=== PATIENT | male | born 1940 | race African-American/Black ===

== ENCOUNTER 2019-05-11 11:43 | Emergency (ER) | payer OTHER, MEDICAID ==
[~2019-05-11] VITALS: Ht 182.9 cm; Wt 102.1 kg
[2019-05-11 11:45] VITALS: BP 176/82
[2019-05-11] MEDS ORDERED: METH-37 PO (12:24)
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
== END 2019-05-11 12:37 | disposition home or self-care (01) ==
LOC: ER 11:43
DX: M25.511 Pain in right shoulder (principal); M25.60 Stiffness of unspecified joint, not elsewhere classified; I10 Essential (primary) hypertension; Z95.1 Presence of aortocoronary bypass graft; Z95.5 Presence of coronary angioplasty implant and graft
CPT/HCPCS: 99283

== ENCOUNTER 2019-05-13 18:01 | Emergency (ER) | payer OTHER, MEDICAID ==
[~2019-05-13] VITALS: Ht 182.9 cm; Wt 104.3 kg
[~2019-05-13 18:01] MED LIST: METH-37 PO
[2019-05-13 19:28] VITALS: BP 180/75
[2019-05-13] MEDS ORDERED: CEPH500T PO (20:21)
[2019-05-13] MEDS ORDERED: ACET-704 PO (20:21)
[2019-05-13] MEDS ORDERED: SULF1TAB24 PO (20:21)
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
[2019-05-13] MEDS ORDERED: MUPI22OI2 TP (20:25)
[2019-05-13] MEDS ORDERED: CYCLOBENZAPRINE 10 MG TABLET. PO ONE (20:30)
[2019-05-13] MEDS ORDERED: DIPHTH,PERTUSS(ACELL),TET TOX 0.5 ML DISP.SYRIN. VAX IM ONE (20:30)
[2019-05-13] MEDS ORDERED: HYDROcodone/APAP 5/325MG 1 TAB TABLET PO ONE (20:30)
== END 2019-05-13 20:31 | disposition home or self-care (01) ==
LOC: ER 18:01
DX: L73.9 Follicular disorder, unspecified (principal); M25.511 Pain in right shoulder; I10 Essential (primary) hypertension; Z95.5 Presence of coronary angioplasty implant and graft
CPT/HCPCS: 90471; 90715; 99283

== ENCOUNTER 2019-05-15 10:51 | Emergency (ER) | payer OTHER, MEDICAID ==
[~2019-05-15] VITALS: Ht 182.9 cm; Wt 104.3 kg
[~2019-05-15 10:51] MED LIST changes: +ACET-704 PO; +CEPH500T PO; +MUPI22OI2 TP; +SULF1TAB24 PO
[2019-05-15 11:15] VITALS: BP 180/75
[2019-05-15] MEDS ORDERED: METH4TAB2 PO (11:47)
[2019-05-15] MEDS ORDERED: VALA1000 PO (11:47)
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
== END 2019-05-15 11:54 | disposition home or self-care (01) ==
LOC: ER 10:51
DX: B02.9 Zoster without complications (principal); I10 Essential (primary) hypertension; Z95.1 Presence of aortocoronary bypass graft; Z95.5 Presence of coronary angioplasty implant and graft
CPT/HCPCS: 99283

== ENCOUNTER 2019-05-17 13:57 | Emergency (ER) | payer OTHER, MEDICAID ==
[~2019-05-17] VITALS: Ht 177.8 cm; Wt 104.3 kg
[~2019-05-17 13:57] MED LIST changes: +METH4TAB2 PO; +VALA1000 PO
[2019-05-17 15:11] VITALS: BP 183/86
[2019-05-17] MEDS ORDERED: OXYC1TAB15 PO (15:14)
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
== END 2019-05-17 15:36 | disposition home or self-care (01) ==
LOC: ER 13:57
DX: B02.9 Zoster without complications (principal); I10 Essential (primary) hypertension; Z95.1 Presence of aortocoronary bypass graft; Z95.5 Presence of coronary angioplasty implant and graft
CPT/HCPCS: 99283

== ENCOUNTER 2019-11-30 09:00 | Inpatient (IN) | payer OTHER, MEDICAID ==
[~2019-11-30] VITALS: Ht 180.3 cm; Wt 102.2 kg
[~2019-11-30 09:00] MED LIST changes: +OXYC1TAB15 PO; -VALA1000 PO; +VALA10008 PO
[2019-11-30] MEDS ORDERED: ASPIRIN 325 MG TABLET PO ONE (09:15)
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
--- NOTE | 2019-11-30 09:45 | RAD ---
EXAM: RIBS LEFT, PORTABLE CHEST 1V INDICATION: Chest pain. TECHNIQUE: Single AP view chest. COMPARISON: None FINDINGS: Post CABG surgical changes are present. The heart size is normal. The great vessels appear unremarkable. There is no hilar or mediastinal mass. The lungs are clear. There is no pleural effusion or pneumothorax. There are no significant osseous abnormalities. IMPRESSION: No active cardiopulmonary disease status post CABG. In particular, no pneumothorax or pleural effusion. PROCEDURE: RIBS LEFT, PORTABLE CHEST 1V STUDY DATE: 11/30/2019 CLINICAL INDICATION / HISTORY: Chest pain. TECHNIQUE: Left ribs 3 views. COMPARISON: Chest x-ray same day FINDINGS: There is no fracture or dislocation. The bone density is normal. No soft tissue abnormality is seen. IMPRESSION: No acute osseous abnormality on 3 views of the left ribs. Electronically signed by: Deny Castillo MD (11/30/2019 9:42 AM) [id number]
--- NOTE | 2019-11-30 09:57 | RAD ---
PROCEDURE: THORACIC SPINE 3V STUDY DATE: 11/30/2019 CLINICAL INDICATION / HISTORY: Mid upper back pain after a fall with pain with palpation.. TECHNIQUE: 3 VIEWS: AP, lateral and swimmer's lateral views of the thoracic spine were obtained COMPARISON: None FINDINGS: Alignment is within normal limits. There is preservation of the normal thoracic kyphosis. Vertebral body heights are maintained. Disc spaces show mild narrowing at multiple levels. No fracture or subluxation is identified. Prevertebral and paraspinous soft tissues are unremarkable. IMPRESSION: No evidence of fracture or subluxation in the thoracic spine. Electronically signed by: Deny Castillo MD (11/30/2019 9:54 AM) [id number]
--- NOTE | 2019-11-30 10:10 | RAD ---
Examination: CT head and cervical spine without contrast CT HEAD INDICATION: Fall, hit head COMPARISON: 08/17/2010 Exposure: One or more of the following individualized dose reduction techniques were utilized for this examination: 1. Automated exposure control 2. Adjustment of the mA and/or kV according to patient size 3. Use of iterative reconstruction technique TECHNIQUE: 5 mm contiguous axial images were obtained from the skull base to the vertex in both bone and soft tissue algorithm. FINDINGS: Mild bilateral periventricular white matter hypodensities likely chronic small vessel ischemic disease. No evidence of acute intracranial hemorrhage. No extra-axial fluid collections. No mass effect or midline shift. Ventricular size is appropriate. Basal cisterns are patent. No fractures identified.Clayton-white differentiation is preserved.Globes and orbits are within normal limits. Paranasal sinuses and mastoid air cells are clear. IMPRESSION: No acute intracranial findings. CT CERVICAL SPINE INDICATION: Fall, hit head COMPARISON: None Available. Technique: 2.5 mm contiguous axial images were obtained from the skull base through the cervicothoracic junction in both bone and soft tissue algorithm. Additional sagittal and coronal reconstructions were also performed. FINDINGS: Vertebral body height and alignment are maintained. Cervical lordosis is preserved. The lateral masses of C1 are aligned upon C2. No fractures identified. The bony canal is patent throughout. Severe intervertebral disc height loss identified in cervical spine throughout particularly at C3-C4, C4-C5, C5-C6, C6-C7 vertebral levels. The bilateral facets are well aligned. Multilevel uncovertebral degenerative changes are identified. The paraspinous soft tissues are unremarkable. Visualized intracranial contents are unremarkable. Lung apices are clear. IMPRESSION: 1. No acute fracture of the cervical spine. Correlate clinically. 2. Severe degenerative changes cervical spine. Electronically signed by: Enoc Honeycutt MD (11/30/2019 10:07 AM) [id number]
[2019-11-30 10:46] LABS: BASO % 1 % (0-3); EOS # 0.1 x10^3/uL (0.0-0.7); EOS % 3 % (0-3); HEMATOCRIT 47.9 % (39.0-53.0); HEMOGLOBIN 15.9 g/dL (13.0-17.5); LYMPH # 0.9 x10^3/uL (1.0-4.8); LYMPH % 23 % (24-48); MEAN CORPUSCULAR HEMOGLOBIN 28 pg (25-35); MEAN CORPUSCULAR HGB CONC 33 g/dL (31-37); MEAN CORPUSCULAR VOLUME 85 fL (79-100); MONO # 0.4 x10^3/uL (0.0-1.1); MONO % 11 % (0-9); NEUT # 2.4 x10^3/uL (1.8-7.7); NEUT % 62 % (31-73); PLATELET COUNT 156 x10^3/uL (140-400); RED BLOOD COUNT 5.64 x10^6/uL (4.30-5.70); RED CELL DISTRIBUTION WIDTH 13.4 % (11.5-14.5); WHITE BLOOD COUNT 3.9 x10^3/uL (4.0-11.0)
[2019-11-30 10:59] LABS: CALCIUM 8.6 mg/dL (8.5-10.1); CREATININE 1.4 mg/dL (0.7-1.3); GFR 59.2; POTASSIUM 3.7 mmol/L (3.5-5.1)
[2019-11-30 11:04] LABS: PROTHROMBIN TIME PATIENT 13.3 SEC (11.7-14.0)
[2019-11-30 11:05] LABS: ALBUMIN 3.2 g/dL (3.4-5.0); ALBUMIN/GLOBULIN RATIO 0.9 (1.0-1.7); TOTAL BILIRUBIN 0.6 mg/dL (0.2-1.0); TOTAL PROTEIN 6.8 g/dL (6.4-8.2)
[2019-11-30 12:13] LABS: BILIRUBIN,URINE NEGATIVE (NEG); CLARITY,URINE CLEAR; COLOR,URINE YELLOW; NITRITE,URINE NEGATIVE (NEG); PROTEIN,URINE NEGATIVE (NEG-TRACE)
[2019-11-30 12:16] LABS: BARBITURATES NEG (NEG); BENZODIAZEPINES NEG (NEG); CANNABINOIDS NEG (NEG); COCAINE POS (NEG); METHADONE NEG (NEG); OPIATES NEG (NEG); PHENCYCLIDINE NEG (NEG)
[2019-11-30 12:17] LABS: SQUAMOUS EPITHELIAL CELL,UR MANY /LPF
[2019-11-30 12:18] LABS: AMPHETAMINE/METHAMPHETAMINE NEG (NEG)
[2019-11-30 12:19] LABS: BACTERIA,URINE FEW /HPF (0-FEW); RBC,URINE OCC /HPF (0-2)
[2019-11-30] MEDS ORDERED: fentaNYL PF VIAL 100 MCG/2 ML VIAL IV PRN (12:30)
[2019-11-30] MEDS ORDERED: ONDANSETRON PF 4 MG/2 ML VIAL. IV PRN ×2 (12:30→13:00)
[2019-11-30] MEDS ORDERED: ACETAMINOPHEN 325 MG TABLET. PO PRN ×2 (12:30→13:00)
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
[2019-11-30 13:00] VITALS: BP 163/67
[2019-11-30] MEDS: ENOXAPARIN 40 MG/0.4 ML SYRINGE. SQ SCH (13:00)
[2019-11-30] MEDS ORDERED: guaiFENesin ORAL 200 MG/10 ML LIQUID. PO PRN (13:00)
[2019-11-30] MEDS ORDERED: 0.9 % SODIUM CHLORIDE 10 ML DISP.SYRIN. IV PRN (13:00)
[2019-11-30] MEDS ORDERED: MAG HYDROX/ALUMINUM HYD/SIMETH 30 ML ORAL.SUSP PO PRN (13:00)
[2019-11-30] MEDS ORDERED: DOCUSATE SODIUM 100 MG CAPSULE. PO PRN (13:00)
[2019-11-30] MEDS ORDERED: ALBUTEROL SULFATE 2.5 MG/3 ML NEBU. NEB PRN (13:00)
[2019-11-30] MEDS ORDERED: cloNIDine HCL 0.1 MG TABLET PO PRN (13:00)
--- NOTE | 2019-11-30 13:00 | NUR ---
Patient arrived to room 203 via bed from ER at 1300. Patient A&OX4. VSS. Patient complaining of being hungry & wanting food. Tray ordered. The patient, GLEN MENDEZ, 79 y/o, M admitted by NILTON HERNANDEZ MD, was given written information regarding hospital policies, unit procedures and contact persons. Valuables were checked and noted. Will continue to monitor.
[2019-11-30] MEDS: LISINOPRIL 20 MG TABLET PO SCH (13:18)
[2019-11-30] MEDS: IV NORMAL SALINE 1000ML BAG 1,000 ML IV SCH (13:21)
[2019-11-30] MEDS ORDERED: hydroCHLOROthiazide 25 MG TABLET PO SCH (14:00)
[2019-11-30 15:00] VITALS: BP 170/81
--- NOTE | 2019-11-30 15:24 | EKG ---
[facility] [address] [place] [address] Test Date: 2019-11-30 Test Time: 09:12:02 Pat Name: GLEN MENDEZ Department: Room: Gender: M [employer]: : [id number] Requested By: MIKO ANDRADE Order Number: [id number] Reading MD: Measurements Intervals [place] Rate: 70 P: 53 IN: 276 QRS: -54 QRSD: 96 T: 121 QT: 380 QTc: 413 Interpretive Statements SINUS RHYTHM PROLONGED IN INTERVAL ABNORMAL LEFT AXIS DEVIATION S1,S2,S3 PATTERN LEFT ANTERIOR FASCICULAR BLOCK QRS(T) CONTOUR ABNORMALITY CONSISTENT WITH ANTEROSEPTAL INFARCT AGE UNDETERMINED T ABNORMALITY IN HIGH LATERAL LEADS NON SPECIFIC ST DEPRESSION ABNORMAL ECG No previous ECG available for comparison
[2019-11-30 15:52] VITALS: BP 156/69
--- NOTE | 2019-11-30 16:51 | CONS ---
DATE OF CONSULTATION: 11/30/2019 REASON FOR CONSULTATION: Chest pain. HISTORY OF PRESENT ILLNESS: The patient is a pleasant 79-year-old man with past medical history as noted below, presented to the hospital in setting of some diffuse aches and pains and high blood pressure. He also reported some mild element of chest pain. He has chronic back pain issues as well. Upon arrival, he was noted to have some cocaine in his urine. This was also confirmed on a test that was performed at [facility] last week. He had also been complaining of some issues with walking and apparently fell and hit his head on the concrete outside when he presented to the ER. Evaluation with a head CT in the ER was unremarkable. PAST MEDICAL HISTORY: 1. Coronary artery disease, status post bypass. 2. Hypertension. 3. Dyslipidemia. 4. Drug abuse. SOCIAL HISTORY: As noted above. FAMILY HISTORY: Noncontributory. REVIEW OF SYSTEMS: Negative unless otherwise mentioned above. ALLERGIES: No known drug allergies. CURRENT CARDIOVASCULAR MEDICATIONS: 1. Lisinopril 20 mg daily. 2. Hydrochlorothiazide 25 mg p.o. daily. 3. Clonidine p.r.n. PHYSICAL EXAMINATION: VITAL SIGNS: Temperature is afebrile, pulse 65, respirations 18, blood pressure 163/67, and oxygen saturation 97% on room air. GENERAL: He appears to be alert and oriented, in no significant distress. He does have some gait instability and has a difficult time with get up and go test. EXTREMITIES: No obvious edema is noted in the lower extremities. Further examination is deferred due to concerns for social distancing and coronavirus. DIAGNOSTIC STUDIES: Basic metabolic panel is remarkable for creatinine of 1.4, which is his baseline. Cardiac enzymes are negative. EKG is unremarkable. Toxicology screen is positive for cocaine. Urinalysis is grossly unremarkable. Chest x-ray is unremarkable. IMPRESSION: Nonspecific fall, etiology unclear. Given his history of coronary artery disease and cocaine use, this could be related to arrhythmias, but at this present time, his telemetry and EKG did not reveal any obvious evidence of arrhythmias or conduction system issues. RECOMMENDATIONS: At this present time, no further cardiovascular testing is necessary. If he remains in the hospital, we could consider further evaluation with an echocardiogram. Otherwise, safely discharged with outpatient followup at [facility] as previously scheduled with Cardiology office. Thank you for this consultation. VIET BATEMAN MD DR: YAMILETH/randa JOB#: [id number] / [id number]
[2019-11-30] MEDS ORDERED: AMLO10TA8 PO (18:27)
[2019-11-30] MEDS ORDERED: PROM5SYR2 PO (18:27)
[2019-11-30] MEDS ORDERED: PANT40TA77 PO (18:27)
[2019-11-30] MEDS ORDERED: ATOR10TA60 PO (18:27)
[2019-11-30] MEDS ORDERED: OXYC20TA PO (18:27)
[2019-11-30] MEDS ORDERED: HYDR-2867 PO (18:27)
[2019-11-30] MEDS ORDERED: HYDR-2868 PO (18:27)
--- NOTE | 2019-11-30 18:27 | NUR ---
Patient did not know what home meds he takes so [facility] was called & their med list was entered into the computer. Attempted to call [facility] as patient uses them too but could not get through.
[2019-11-30] MEDS: fentaNYL PF VIAL 100 MCG/2 ML VIAL IVP PRN ×2 (19:18→23:11)
[2019-11-30 19:30] VITALS: BP 129/60
[2019-11-30 23:10] VITALS: BP 146/61
[2019-12-01] VITALS (7 sets, daily range): BP systolic 112–168; BP diastolic 52–80
[2019-12-01] MEDS: IV NORMAL SALINE 1000ML BAG 1,000 ML IV SCH ×2 (04:47→18:32)
[2019-12-01] MEDS ORDERED: hydrALAZINE 25 MG TABLET PO SCH (09:00)
--- NOTE | 2019-12-01 09:06 | PDOC ---
PROGRESS NOTES Chief Complaint Chief Complaint ACUTE Mechanical fall, low back pain Gait instability No acute intracranial findings. CKD STAGE 3 Morbid obesity atypical chest discomfort Cocaine abuse, long-standing HX DDD L/S HYPERTENSION CAD Post CABG surgical changes are present. ON CXR History of Present Illness History of Present Illness Mr Egan is a 79 yo M w/ PMHx CAD s/p CABG, HTN, HLD, cocaine abuse who p/w body aches after falling and striking his head on concrete, local bystanders called 911. Noted in ED with uncontrolled HTN as well as chest pain. Head CT in the ER was unremarkable. UDS positive for cocaine. This morning he is feeling some aches. BP better controlled. PT recommends SNF based on his functional status and gait. Vitals Vitals Vital Signs Date Time Temp Pulse Resp B/P (MAP) Pulse Ox O2 Delivery O2 Flow Rate FiO2 12/01/19 08:00 Room Air 12/01/19 07:00 97.5 63 18 112/67 (82) 98 97.5 Physical Exam General: Alert, Oriented X3, Cooperative, No acute distress Abdomen: Normal bowel sounds, Soft, No tenderness, Other (OBESE) Extremities: No cyanosis Labs LABS Laboratory Tests Test 11/30/19 10:35 11/30/19 12:00 11/30/19 15:28 White Blood Count 3.9 x10^3/uL (4.0-11.0) Red Blood Count 5.64 x10^6/uL (4.30-5.70) Hemoglobin 15.9 g/dL (13.0-17.5) Hematocrit 47.9 % (39.0-53.0) Mean Corpuscular Volume 85 fL (79-100) Mean Corpuscular Hemoglobin 28 pg (25-35) Mean Corpuscular Hemoglobin Concent 33 g/dL (31-37) Red Cell Distribution Width 13.4 % (11.5-14.5) Platelet Count 156 x10^3/uL (140-400) Neutrophils (%) (Auto) 62 % (31-73) Lymphocytes (%) (Auto) 23 % (24-48) Monocytes (%) (Auto) 11 % (0-9) Eosinophils (%) (Auto) 3 % (0-3) Basophils (%) (Auto) 1 % (0-3) Neutrophils # (Auto) 2.4 x10^3/uL (1.8-7.7) Lymphocytes # (Auto) 0.9 x10^3/uL (1.0-4.8) Monocytes # (Auto) 0.4 x10^3/uL (0.0-1.1) Eosinophils # (Auto) 0.1 x10^3/uL (0.0-0.7) Basophils # (Auto) 0.0 x10^3/uL (0.0-0.2) Prothrombin Time 13.3 SEC (11.7-14.0) Prothromb Time International Ratio 1.1 (0.8-1.1) Sodium Level 142 mmol/L (136-145) Potassium Level 3.7 mmol/L (3.5-5.1) Chloride Level 104 mmol/L (98-107) Carbon Dioxide Level 28 mmol/L (21-32) Anion Gap 10 (6-14) Blood Urea Nitrogen 16 mg/dL (8-26) Creatinine 1.4 mg/dL (0.7-1.3) Estimated GFR (Cockcroft-Gault) 59.2 BUN/Creatinine Ratio 11 (6-20) Glucose Level 84 mg/dL (70-99) Calcium Level 8.6 mg/dL (8.5-10.1) Total Bilirubin 0.6 mg/dL (0.2-1.0) Aspartate Amino Transf (AST/SGOT) 27 U/L (15-37) Alanine Aminotransferase (ALT/SGPT) 35 U/L (16-63) Alkaline Phosphatase 176 U/L (46-116) Troponin I Quantitative < 0.017 ng/mL (0.000-0.055) < 0.017 ng/mL (0.000-0.055) Total Protein 6.8 g/dL (6.4-8.2) Albumin 3.2 g/dL (3.4-5.0) Albumin/Globulin Ratio 0.9 (1.0-1.7) Lipase 507 U/L (73-393) Urine Collection Type Unknown Urine Color Yellow Urine Clarity Clear Urine pH 6.0 (<5.0-8.0) Urine Specific [place] 1.025 (1.000-1.030) Urine Protein Negative mg/dL (NEG-TRACE) Urine Glucose (UA) Negative mg/dL (NEG) Urine Ketones (Stick) Negative mg/dL (NEG) Urine Blood Negative (NEG) Urine Nitrite Negative (NEG) Urine Bilirubin Negative (NEG) Urine Urobilinogen Dipstick 1.0 mg/dL (0.2 mg/dL) Urine Leukocyte Esterase Negative (NEG) Urine RBC Occ /HPF (0-2) Urine WBC 1-4 /HPF (0-4) Urine Squamous Epithelial Cells Many /LPF Urine Bacteria Few /HPF (0-FEW) Urine Mucus Marked /LPF Urine Opiates Screen Neg (NEG) Urine Methadone Screen Neg (NEG) Urine Barbiturates Neg (NEG) Urine Phencyclidine Screen Neg (NEG) Urine Amphetamine/Methamphetamine Neg (NEG) Urine Benzodiazepines Screen Neg (NEG) Urine Cocaine Screen Pos (NEG) Urine Cannabinoids Screen Neg (NEG) Urine Ethyl Alcohol Neg (NEG) Assessment and Plan Assessmemt and Plan Problems Medical Problems: (1) Chest pain Status: Acute (2) Dizziness Status: Acute Comment Review of Relevant I have reviewed the following items stormy (where applicable) has been applied. Labs Laboratory Tests Test 11/30/19 10:35 11/30/19 12:00 11/30/19 15:28 White Blood Count 3.9 x10^3/uL (4.0-11.0) Red Blood Count 5.64 x10^6/uL (4.30-5.70) Hemoglobin 15.9 g/dL (13.0-17.5) Hematocrit 47.9 % (39.0-53.0) Mean Corpuscular Volume 85 fL (79-100) Mean Corpuscular Hemoglobin 28 pg (25-35) Mean Corpuscular Hemoglobin Concent 33 g/dL (31-37) Red Cell Distribution Width 13.4 % (11.5-14.5) Platelet Count 156 x10^3/uL (140-400) Neutrophils (%) (Auto) 62 % (31-73) Lymphocytes (%) (Auto) 23 % (24-48) Monocytes (%) (Auto) 11 % (0-9) Eosinophils (%) (Auto) 3 % (0-3) Basophils (%) (Auto) 1 % (0-3) Neutrophils # (Auto) 2.4 x10^3/uL (1.8-7.7) Lymphocytes # (Auto) 0.9 x10^3/uL (1.0-4.8) Monocytes # (Auto) 0.4 x10^3/uL (0.0-1.1) Eosinophils # (Auto) 0.1 x10^3/uL (0.0-0.7) Basophils # (Auto) 0.0 x10^3/uL (0.0-0.2) Prothrombin Time 13.3 SEC (11.7-14.0) Prothromb Time International Ratio 1.1 (0.8-1.1) Sodium Level 142 mmol/L (136-145) Potassium Level 3.7 mmol/L (3.5-5.1) Chloride Level 104 mmol/L (98-107) Carbon Dioxide Level 28 mmol/L (21-32) Anion Gap 10 (6-14) Blood Urea Nitrogen 16 mg/dL (8-26) Creatinine 1.4 mg/dL (0.7-1.3) Estimated GFR (Cockcroft-Gault) 59.2 BUN/Creatinine Ratio 11 (6-20) Glucose Level 84 mg/dL (70-99) Calcium Level 8.6 mg/dL (8.5-10.1) Total Bilirubin 0.6 mg/dL (0.2-1.0) Aspartate Amino Transf (AST/SGOT) 27 U/L (15-37) Alanine Aminotransferase (ALT/SGPT) 35 U/L (16-63) Alkaline Phosphatase 176 U/L (46-116) Troponin I Quantitative < 0.017 ng/mL (0.000-0.055) < 0.017 ng/mL (0.000-0.055) Total Protein 6.8 g/dL (6.4-8.2) Albumin 3.2 g/dL (3.4-5.0) Albumin/Globulin Ratio 0.9 (1.0-1.7) Lipase 507 U/L (73-393) Urine Collection Type Unknown Urine Color Yellow Urine Clarity Clear Urine pH 6.0 (<5.0-8.0) Urine Specific [place] 1.025 (1.000-1.030) Urine Protein Negative mg/dL (NEG-TRACE) Urine Glucose (UA) Negative mg/dL (NEG) Urine Ketones (Stick) Negative mg/dL (NEG) Urine Blood Negative (NEG) Urine Nitrite Negative (NEG) Urine Bilirubin Negative (NEG) Urine Urobilinogen Dipstick 1.0 mg/dL (0.2 mg/dL) Urine Leukocyte Esterase Negative (NEG) Urine RBC Occ /HPF (0-2) Urine WBC 1-4 /HPF (0-4) Urine Squamous Epithelial Cells Many /LPF Urine Bacteria Few /HPF (0-FEW) Urine Mucus Marked /LPF Urine Opiates Screen Neg (NEG) Urine Methadone Screen Neg (NEG) Urine Barbiturates Neg (NEG) Urine Phencyclidine Screen Neg (NEG) Urine Amphetamine/Methamphetamine Neg (NEG) Urine Benzodiazepines Screen Neg (NEG) Urine Cocaine Screen Pos (NEG) Urine Cannabinoids Screen Neg (NEG) Urine Ethyl Alcohol Neg (NEG) Laboratory Tests Test 11/30/19 10:35 11/30/19 12:00 11/30/19 15:28 White Blood Count 3.9 x10^3/uL (4.0-11.0) Red Blood Count 5.64 x10^6/uL (4.30-5.70) Hemoglobin 15.9 g/dL (13.0-17.5) Hematocrit 47.9 % (39.0-53.0) Mean Corpuscular Volume 85 fL (79-100) Mean Corpuscular Hemoglobin 28 pg (25-35) Mean Corpuscular Hemoglobin Concent 33 g/dL (31-37) Red Cell Distribution Width 13.4 % (11.5-14.5) Platelet Count 156 x10^3/uL (140-400) Neutrophils (%) (Auto) 62 % (31-73) Lymphocytes (%) (Auto) 23 % (24-48) Monocytes (%) (Auto) 11 % (0-9) Eosinophils (%) (Auto) 3 % (0-3) Basophils (%) (Auto) 1 % (0-3) Neutrophils # (Auto) 2.4 x10^3/uL (1.8-7.7) Lymphocytes # (Auto) 0.9 x10^3/uL (1.0-4.8) Monocytes # (Auto) 0.4 x10^3/uL (0.0-1.1) Eosinophils # (Auto) 0.1 x10^3/uL (0.0-0.7) Basophils # (Auto) 0.0 x10^3/uL (0.0-0.2) Prothrombin Time 13.3 SEC (11.7-14.0) Prothromb Time International Ratio 1.1 (0.8-1.1) Sodium Level 142 mmol/L (136-145) Potassium Level 3.7 mmol/L (3.5-5.1) Chloride Level 104 mmol/L (98-107) Carbon Dioxide Level 28 mmol/L (21-32) Anion Gap 10 (6-14) Blood Urea Nitrogen 16 mg/dL (8-26) Creatinine 1.4 mg/dL (0.7-1.3) Estimated GFR (Cockcroft-Gault) 59.2 BUN/Creatinine Ratio 11 (6-20) Glucose Level 84 mg/dL (70-99) Calcium Level 8.6 mg/dL (8.5-10.1) Total Bilirubin 0.6 mg/dL (0.2-1.0) Aspartate Amino Transf (AST/SGOT) 27 U/L (15-37) Alanine Aminotransferase (ALT/SGPT) 35 U/L (16-63) Alkaline Phosphatase 176 U/L (46-116) Troponin I Quantitative < 0.017 ng/mL (0.000-0.055) < 0.017 ng/mL (0.000-0.055) Total Protein 6.8 g/dL (6.4-8.2) Albumin 3.2 g/dL (3.4-5.0) Albumin/Globulin Ratio 0.9 (1.0-1.7) Lipase 507 U/L (73-393) Urine Collection Type Unknown Urine Color Yellow Urine Clarity Clear Urine pH 6.0 (<5.0-8.0) Urine Specific [place] 1.025 (1.000-1.030) Urine Protein Negative mg/dL (NEG-TRACE) Urine Glucose (UA) Negative mg/dL (NEG) Urine Ketones (Stick) Negative mg/dL (NEG) Urine Blood Negative (NEG) Urine Nitrite Negative (NEG) Urine Bilirubin Negative (NEG) Urine Urobilinogen Dipstick 1.0 mg/dL (0.2 mg/dL) Urine Leukocyte Esterase Negative (NEG) Urine RBC Occ /HPF (0-2) Urine WBC 1-4 /HPF (0-4) Urine Squamous Epithelial Cells Many /LPF Urine Bacteria Few /HPF (0-FEW) Urine Mucus Marked /LPF Urine Opiates Screen Neg (NEG) Urine Methadone Screen Neg (NEG) Urine Barbiturates Neg (NEG) Urine Phencyclidine Screen Neg (NEG) Urine Amphetamine/Methamphetamine Neg (NEG) Urine Benzodiazepines Screen Neg (NEG) Urine Cocaine Screen Pos (NEG) Urine Cannabinoids Screen Neg (NEG) Urine Ethyl Alcohol Neg (NEG) Medications Current Medications Aspirin (Soto Aspirin) 325 mg 1X ONCE PO Last administered on 11/30/19at 09:30; Start 11/30/19 at 09:15; Stop 11/30/19 at 09:16; Status DC Ondansetron HCl (Zofran) 4 mg PRN Q8HRS PRN IV NAUSEA/VOMITING; Start 11/30/19 at 12:30; Stop 12/01/19 at 12:29 Fentanyl Citrate (Fentanyl 2ml Vial) 50 mcg PRN Q1HR PRN IV PAIN Last administered on 11/30/19at 15:50; Start 11/30/19 at 12:30; Stop 11/30/19 at 16:11; Status DC Acetaminophen (Tylenol) 650 mg PRN Q4HRS PRN PO FEVER; Start 11/30/19 at 12:30; Stop 12/01/19 at 12:29 Sodium Chloride (Normal Saline Flush) 3 ml QSHIFT PRN IV AFTER MEDS AND BLOOD DRAWS; Start 11/30/19 at 13:00 Sodium Chloride 1,000 ml @ 65 mls/hr [id number] IV Last administered on 12/01/19at 04:47; Start 11/30/19 at 12:51 Ondansetron HCl (Zofran) 4 mg PRN Q4HRS PRN IV NAUSEA/VOMITING; Start 11/30/19 at 13:00 Acetaminophen (Tylenol) 650 mg PRN Q4HRS PRN PO TEMP OVER 100.4F OR MILD PAIN; Start 11/30/19 at 13:00 Al Hydroxide/Mg Hydroxide (Mylanta Plus Xs) 30 ml PRN DAILY PRN PO HEARTBURN / GAS; Start 11/30/19 at 13:00 Clonidine HCl (Catapres) 0.1 mg PRN Q6HRS PRN PO SBP>160 OR DBP>90; Start at 13:00 Docusate Sodium (Colace) 100 mg PRN BID PRN PO CONSTIPATION; Start 11/30/19 at 13:00 Albuterol Sulfate (Ventolin Neb Soln) 2.5 mg PRN Q4HRS PRN NEB SHORTNESS OF BREATH; Start 11/30/19 at 13:00 Guaifenesin (Robitussin) 200 mg PRN Q4HRS PRN PO COUGH; Start 11/30/19 at 13:00 Enoxaparin Sodium (Lovenox 40mg Syringe) 40 mg Q24H SQ ; Start 11/30/19 at 13:00 Hydrochlorothiazide (Hydrodiuril) 25 mg DAILY PO Last administered on 11/30/19at 13:18; Start 11/30/19 at 14:00 Lisinopril (Prinivil) 20 mg DAILY PO Last administered on 11/30/19at 13:18; Start 11/30/19 at 14:00 Fentanyl Citrate (Fentanyl 2ml Vial) 50 mcg PRN Q3HRS PRN IVP PAIN Last administered on 11/30/19at 23:11; Start 11/30/19 at 16:15 Active Scripts Active Reported Oxycodone Hcl 20 Mg Tablet 1 Tab PO QIDPRN PRN Atorvastatin Calcium 10 Mg Tablet 10 Mg PO HS Amlodipine Besylate 10 Mg Tablet 10 Mg PO DAILY Pantoprazole Sodium (Pantoprazole Sodium) 40 Mg Tablet.dr 40 Mg PO DAILYAC Hydralazine Hcl 25 Mg Tablet 1 Tab PO BID Hydralazine Hcl 10 Mg Tablet 1 Tab PO BID Prometh-Codein 6.25-10 mg/5 ml (Promethazine HCl/Codeine) 5 Ml Syrup 5 Ml PO PRN Q12HR PRN MDD 30 Milliliter(s) Vitals/I & O Vital Sign - Last 24 Hours 11/30/19 11/30/19 11/30/19 11/30/19 09:20 09:53 12:11 13:00 Temp 98.2 98.0 98.2 98.0 Pulse 66 64 66 65 Resp 18 18 18 18 B/P (MAP) 177/75 (109) 163/67 (99) Pulse Ox 95 96 100 99 O2 Delivery Room Air Room Air 11/30/19 11/30/19 11/30/19 11/30/19 13:18 14:00 15:00 15:50 Temp 98.1 98.1 Pulse 65 82 Resp 18 B/P (MAP) 163/67 170/81 (110) Pulse Ox 97 O2 Delivery Room Air Room Air Room Air 11/30/19 11/30/19 11/30/19 11/30/19 15:52 19:18 19:30 19:33 Temp 98.1 98.1 Pulse 69 Resp 16 20 B/P (MAP) 156/69 (98) 129/60 (83) Pulse Ox 96 O2 Delivery Room Air Room Air Room Air 11/30/19 11/30/19 11/30/19 12/01/19 20:08 23:10 23:11 00:00 Temp 97.9 97.9 Pulse 64 Resp 16 18 16 18 B/P (MAP) 146/61 (89) Pulse Ox 96 O2 Delivery Room Air Room Air Room Air Room Air 12/01/19 12/01/19 12/01/19 03:25 07:00 08:00 Temp 98.0 97.5 98.0 97.5 Pulse 52 63 Resp 20 18 B/P (MAP) 150/72 (98) 112/67 (82) Pulse Ox 98 98 O2 Delivery Room Air Room Air Room Air Intake and Output 11/30/19 11/30/19 12/01/19 15:00 23:00 07:00 Intake Total 800 ml 1020 ml Output Total 300 ml 1100 ml Balance 500 ml -80 ml INDIO WONG MD Dec 01, 2019 09:06
[2019-12-01] MEDS: fentaNYL PF VIAL 100 MCG/2 ML VIAL IVP PRN (09:35)
[2019-12-01] MEDS: PANTOPRAZOLE 40 MG TABLET.DR. PO SCH (09:36)
[2019-12-01] MEDS: amLODIPine BESYLATE 10 MG TABLET PO SCH (11:21)
[2019-12-01] MEDS: LISINOPRIL 20 MG TABLET PO SCH (11:21)
[2019-12-01] MEDS: ENOXAPARIN 40 MG/0.4 ML SYRINGE. SQ SCH (13:00)
[2019-12-01] MEDS: traMADol 50 MG TABLET PO PRN ×2 (15:33→21:41)
[2019-12-01] MEDS: ATORVASTATIN CALCIUM 10 MG TABLET. PO SCH (21:14)
[2019-12-02 03:59] VITALS: BP 140/70
[2019-12-02 07:20] VITALS: BP 157/65
[2019-12-02] MEDS: amLODIPine BESYLATE 10 MG TABLET PO SCH (08:17)
[2019-12-02] MEDS: PANTOPRAZOLE 40 MG TABLET.DR. PO SCH (08:18)
[2019-12-02] MEDS: LISINOPRIL 20 MG TABLET PO SCH (08:18)
[2019-12-02] MEDS: traMADol 50 MG TABLET PO PRN ×2 (08:20→21:15)
[2019-12-02 10:15] VITALS: BP 131/65
--- NOTE | 2019-12-02 10:41 | NUR ---
SS following for discharge planning. SS reviewed pt chart and discussed with pt RN. PT/OT recommended detention unit. Pt requesting to go to [facility], ; fax [phone]. SS phoned and faxed referral to [facility]. SS awaiting acceptance decision and insurance determination and will proceed accordingly with discharge planning.
--- NOTE | 2019-12-02 10:50 | CARD ---
MR#: [id number] Date of Study: 12/02/2019 Ordering Physician: VIET BATEMAN, Referring Physician: VIET BATEMAN, Tech: Romi Francisco [facility] APPROVED REPORT EXAM: Two-dimensional and M-mode echocardiogram with Doppler and color Doppler. Other Information Quality : Good INDICATION Hypertension/HCVD Near Syncope Surgery/Intervention CABG: Date: 2004 RISK FACTORS Hyperlipidemia 2D DIMENSIONS RVDd2.8 (2.9-3.5cm)Left Atrium(2D)4.6 (1.6-4.0cm) IVSd1.5 (0.7-1.1cm)Aortic Root(2D)3.5 (2.0-3.7cm) LVDd3.9 (3.9-5.9cm)LVOT Diameter1.9 (1.8-2.4cm) PWd1.3 (0.7-1.1cm)LVDs2.4 (2.5-4.0cm) FS (%) 30.0 %SV46.3 ml LVEF(%)60.0 (>50%) Aortic Valve AoV Peak Carlyle.153.2cm/sAoV VTI30.9cm AO Peak GR.9.4mmHgLVOT Peak [place].140.0cm/s AO Mean GR.6mmHgAVA (VMAX)2.72cm2 JOSH (VTI)2.99ua4DU P 1/2 Glzi179zn Mitral Valve MV E Wyxqjmqt14.9cm/sMV DECEL [id number] MV A Uurmewxr38.7cm/sE/A Ratio1.2 Pulmonary Vein S1 Mxwhgsfn41.9cm/sD2 Qppzibrx54.9cm/s LEFT VENTRICLE The left ventricle is normal size. There is mild to modeate concentric left ventricular hypertrophy. The left ventricular systolic function is normal and the ejection fraction is within normal range. Th e Ejection Fraction is 60-65%. There is normal LV segmental wall motion. Transmitral Doppler flow pat tern is Grade II-pseudonormal filling dynamics. RIGHT VENTRICLE The right ventricle is normal size. The right ventricular systolic function is normal. ATRIA The left atrium is mildly dilated. The right atrium size is normal. The interatrial septum is intact with no evidence for an atrial septal defect or patent foramen ovale as noted on 2-D or Doppler imagi ng. AORTIC VALVE The aortic valve is calcified but opens well. Doppler and Color Flow revealed moderate aortic regurgi tation. There is no significant aortic valvular stenosis. MITRAL VALVE The mitral valve is normal in structure and function. There is no evidence of mitral valve prolapse. There is no mitral valve stenosis. Doppler and Color-flow revealed trace mitral regurgitation. TRICUSPID VALVE The tricuspid valve is normal in structure and function. Doppler and Color Flow revealed physiologica l tricuspid regurgitation. There is no tricuspid valve stenosis. PULMONIC VALVE The pulmonary valve is normal in structure and function. Doppler and Color Flow revealed mild to mode rate pulmonic valvular regurgitation. There is no pulmonic valvular stenosis. GREAT VESSELS The aortic root is normal in size. The ascending aorta is mildly dilated at 3.6 cm. The IVC is normal in size and collapses >50% with inspiration. PERICARDIAL EFFUSION There is no evidence of significant pericardial effusion. Critical Notification Critical Value: No <Conclusion> There is mild to modeate concentric left ventricular hypertrophy. The left ventricular systolic function is normal and the ejection fraction is within normal range. Th e Ejection Fraction is 60-65%. Doppler and Color Flow revealed moderate aortic regurgitation. Doppler and Color Flow revealed mild to moderate pulmonic valvular regurgitation. The ascending aorta is mildly dilated at 3.6 cm. Signed by : Viet Bateman, Electronically Approved : 12/02/2019 10:49:25
[2019-12-02] MEDS: IV NORMAL SALINE 1000ML BAG 1,000 ML IV SCH (11:03)
--- NOTE | 2019-12-02 11:24 | PDOC ---
[facility] [facility] PROGRESS NOTE Chief Complaint Chief Complaint ACUTE Mechanical fall, low back pain Gait instability No acute intracranial findings. CKD STAGE 3 Morbid obesity atypical chest discomfort Cocaine abuse, long-standing HX DDD L/S HYPERTENSION CAD Post CABG surgical changes are present. ON CXR History of Present Illness History of Present Illness [id number] Patient seen and examined Discussed with RN Chart reviewed Mr Egan is a 79 yo M w/ PMHx CAD s/p CABG, HTN, HLD, cocaine abuse who p/w body aches after falling and striking his head on concrete, local bystanders called 911. Noted in ED with uncontrolled HTN as well as chest pain. Head CT in the ER was unremarkable. UDS positive for cocaine. This morning he is feeling some aches. BP better controlled. PT recommends SNF based on his functional status and gait. Vitals/I&O Vitals/I&O: Vital Signs Date Time Temp Pulse Resp B/P (MAP) Pulse Ox O2 Delivery O2 Flow Rate FiO2 12/02/19 10:15 97.6 59 16 131/65 (87) 99 Room Air 97.6 I & O 12/01/19 12/01/19 12/02/19 15:00 23:00 07:00 Intake Total 700 ml 300 ml 640 ml Output Total 575 ml 350 ml 900 ml Balance 125 ml -50 ml -260 ml Physical Exam General: Alert, Oriented X3, Cooperative, No acute distress Abdomen: Normal bowel sounds, Soft, No tenderness, Other (OBESE) Extremities: No cyanosis Assessment and Plan Assessmemt and Plan Problems Medical Problems: (1) Chest pain Status: Acute (2) Dizziness Status: Acute ACUTE Mechanical fall, low back pain Gait instability No acute intracranial findings. CKD STAGE 3 Morbid obesity atypical chest discomfort Cocaine abuse, long-standing HX DDD L/S HYPERTENSION CAD Post CABG surgical changes are present. ON CXR Plan Cardiac monitoring CT HEAD serial troponin i neurochecks q 4 hrs fall precautions cardiology consult Neurology consult dvt prophylaxis Comment Review of Relevant I have reviewed the following items stormy (where applicable) has been applied. Medications: Current Medications Medications (Trade) Dose Ordered Sig/[place] Route PRN Reason Start Time Stop Time Status Last Admin Dose Admin Atorvastatin Calcium (Lipitor) 10 mg HS PO 12/01/19 21:00 12/01/19 21:14 Tramadol HCl (Ultram) 50 mg PRN Q6HRS PRN PO MODERATE PAIN, SEVERE PAIN 3/22/20 15:15 12/02/19 08:20 LORIE CARBAJAL III DO Dec 02, 2019 11:24
--- NOTE | 2019-12-02 12:29 | PDOC ---
CARDIOLOGY PROGRESS NOTE SUBJECTIVE: No acute events overnight. Denies any chest pain or dyspnea. Echo done. OBJECTIVE: Vital Signs/I&O: Vital Signs Date Time Temp Pulse Resp B/P (MAP) Pulse Ox O2 Delivery O2 Flow Rate FiO2 12/02/19 10:15 97.6 59 16 131/65 (87) 99 Room Air 97.6 I & O 12/01/19 12/01/19 12/02/19 15:00 23:00 07:00 Intake Total 700 ml 300 ml 640 ml Output Total 575 ml 350 ml 900 ml Balance 125 ml -50 ml -260 ml Objective: a/ox 3. NAD rrr, no m/r/g lungs clr trace edema. CURRENT MEDICATIONS: Current Medications Medications (Trade) Dose Ordered Sig/[place] Route PRN Reason Start Time Stop Time Status Last Admin Dose Admin Atorvastatin Calcium (Lipitor) 10 mg HS PO 12/01/19 21:00 12/01/19 21:14 Tramadol HCl (Ultram) 50 mg PRN Q6HRS PRN PO MODERATE PAIN, SEVERE PAIN 12/01/19 15:15 12/02/19 08:20 DIAGNOSTIC TESTING: Echo reviewed. EF wnl LVH ASSESSMENT: 1. CAD s/p CABG 2. Drug abuse. 3. HTN PLAN: 1. Continue lisinopril and amlodipine. 2. f/u with [facility] cardiology. 3. Echo wnl and no further CV issues. Supportive care. Thanks VIET BATEMAN MD Dec 02, 2019 12:29
[2019-12-02] MEDS: ENOXAPARIN 40 MG/0.4 ML SYRINGE. SQ SCH (13:00)
[2019-12-02 14:27] VITALS: BP 151/62
[2019-12-02 19:40] VITALS: BP 161/64
[2019-12-02] MEDS: ATORVASTATIN CALCIUM 10 MG TABLET. PO SCH (21:15)
[2019-12-02 22:45] VITALS: BP 148/59
[2019-12-03 03:00] VITALS: BP 140/69
[2019-12-03] MEDS: PANTOPRAZOLE 40 MG TABLET.DR. PO SCH (05:50)
[2019-12-03] MEDS: traMADol 50 MG TABLET PO PRN (05:51)
[2019-12-03 07:15] VITALS: BP 135/67
--- NOTE | 2019-12-03 07:23 | NUR ---
Transfer patient to [facility]. All belongings with patient.
--- NOTE | 2019-12-03 08:10 | PDOC ---
PROGRESS NOTES Chief Complaint Chief Complaint ACUTE Mechanical fall, low back pain Gait instability No acute intracranial findings. CKD STAGE 3 Morbid obesity atypical chest discomfort Cocaine abuse, long-standing HX DDD L/S HYPERTENSION CAD Post CABG surgical changes are present. ON CXR History of Present Illness History of Present Illness [id number] Patient seen and examined Discussed with RN Chart reviewed Mr Egan is a 79 yo M w/ PMHx CAD s/p CABG, HTN, HLD, cocaine abuse who p/w body aches after falling and striking his head on concrete, local bystanders called 911. Noted in ED with uncontrolled HTN as well as chest pain. Head CT in the ER was unremarkable. UDS positive for cocaine. This morning he is feeling some aches. BP better controlled. PT recommends SNF based on his functional status and gait. Vitals Vitals Vital Signs Date Time Temp Pulse Resp B/P (MAP) Pulse Ox O2 Delivery O2 Flow Rate FiO2 12/03/19 07:15 98.2 68 20 135/67 (89) 97 Room Air 98.2 Physical Exam General: Alert, Oriented X3, Cooperative, No acute distress Abdomen: Normal bowel sounds, Soft, No tenderness, Other (OBESE) Extremities: No cyanosis Assessment and Plan Assessmemt and Plan Problems Medical Problems: (1) Chest pain Status: Acute (2) Dizziness Status: Acute Comment Review of Relevant I have reviewed the following items stormy (where applicable) has been applied. Medications Current Medications Aspirin (Soto Aspirin) 325 mg 1X ONCE PO Last administered on 11/30/19at 09:30; Start 11/30/19 at 09:15; Stop 11/30/19 at 09:16; Status DC Ondansetron HCl (Zofran) 4 mg PRN Q8HRS PRN IV NAUSEA/VOMITING; Start 11/30/19 at 12:30; Status Cancel Fentanyl Citrate (Fentanyl 2ml Vial) 50 mcg PRN Q1HR PRN IV PAIN Last administered on 11/30/19at 15:50; Start 11/30/19 at 12:30; Stop 11/30/19 at 16:11; Status DC Acetaminophen (Tylenol) 650 mg PRN Q4HRS PRN PO FEVER; Start 11/30/19 at 12:30; Status Cancel Sodium Chloride (Normal Saline Flush) 3 ml QSHIFT PRN IV AFTER MEDS AND BLOOD DRAWS; Start 11/30/19 at 13:00 Sodium Chloride 1,000 ml @ 65 mls/hr [id number] IV Last administered on 12/01/19at 18:32; Start 11/30/19 at 12:51; Stop 12/02/19 at 16:23; Status DC Ondansetron HCl (Zofran) 4 mg PRN Q4HRS PRN IV NAUSEA/VOMITING; Start 11/30/19 at 13:00 Acetaminophen (Tylenol) 650 mg PRN Q4HRS PRN PO TEMP OVER 100.4F OR MILD PAIN; Start 11/30/19 at 13:00 Al Hydroxide/Mg Hydroxide (Mylanta Plus Xs) 30 ml PRN DAILY PRN PO HEARTBURN / GAS; Start 11/30/19 at 13:00 Clonidine HCl (Catapres) 0.1 mg PRN Q6HRS PRN PO SBP>160 OR DBP>90; Start 11/30/19 at 13:00 Docusate Sodium (Colace) 100 mg PRN BID PRN PO CONSTIPATION Last administered on 12/02/19at 12:08; Start 11/30/19 at 13:00 Albuterol Sulfate (Ventolin Neb Soln) 2.5 mg PRN Q4HRS PRN NEB SHORTNESS OF BREATH; Start 11/30/19 at 13:00 Guaifenesin (Robitussin) 200 mg PRN Q4HRS PRN PO COUGH; Start 11/30/19 at 13:00 Enoxaparin Sodium (Lovenox 40mg Syringe) 40 mg Q24H SQ ; Start 11/30/19 at 13:00 Hydrochlorothiazide (Hydrodiuril) 25 mg DAILY PO Last administered on 11/30/19at 13:18; Start 11/30/19 at 14:00; Stop 12/01/19 at 08:55; Status DC Lisinopril (Prinivil) 20 mg DAILY PO Last administered on 12/02/19at 08:18; Start 11/30/19 at 14:00 Fentanyl Citrate (Fentanyl 2ml Vial) 50 mcg PRN Q3HRS PRN IVP PAIN Last administered on 12/01/19at 09:35; Start 11/30/19 at 16:15; Stop 12/01/19 at 15:14; Status DC Amlodipine Besylate (Norvasc) 10 mg DAILY PO Last administered on 12/02/19at 08:17; Start 12/01/19 at 09:00 Atorvastatin Calcium (Lipitor) 10 mg HS PO Last administered on 12/02/19at 21:15; Start 12/01/19 at 21:00 Hydralazine HCl (Apresoline) 25 mg BID PO ; Start 12/01/19 at 09:00; Stop 12/01/19 at 11:01; Status DC Pantoprazole Sodium (Protonix) 40 mg DAILYAC PO Last administered on 12/03/19at 05:50; Start 12/01/19 at 09:30 Tramadol HCl (Ultram) 50 mg PRN Q6HRS PRN PO MODERATE PAIN, SEVERE PAIN Last administered on 12/03/19at 05:51; Start 12/01/19 at 15:15 Active Scripts Active Reported Oxycodone Hcl 20 Mg Tablet 1 Tab PO QIDPRN PRN Atorvastatin Calcium 10 Mg Tablet 10 Mg PO HS Amlodipine Besylate 10 Mg Tablet 10 Mg PO DAILY Pantoprazole Sodium (Pantoprazole Sodium) 40 Mg Tablet.dr 40 Mg PO DAILYAC Hydralazine Hcl 25 Mg Tablet 1 Tab PO BID Hydralazine Hcl 10 Mg Tablet 1 Tab PO BID Prometh-Codein 6.25-10 mg/5 ml (Promethazine HCl/Codeine) 5 Ml Syrup 5 Ml PO PRN Q12HR PRN MDD 30 Milliliter(s) Vitals/I & O Vital Sign - Last 24 Hours 12/02/19 12/02/19 12/02/19 12/02/19 08:17 08:18 08:20 09:30 Pulse 53 53 B/P (MAP) 157/65 157/65 O2 Delivery Room Air Room Air 12/02/19 12/02/19 12/02/19 12/02/19 10:15 14:27 19:40 20:00 Temp 97.6 97.5 97.8 97.6 97.5 97.8 Pulse 59 56 60 Resp 16 16 18 B/P (MAP) 131/65 (87) 151/62 (91) 161/64 (96) Pulse Ox 99 98 98 O2 Delivery Room Air Room Air Room Air Room Air 12/02/19 12/02/19 12/02/19 12/03/19 21:15 22:15 22:45 03:00 Temp 98.8 98.3 98.8 98.3 Pulse 55 54 Resp 18 16 18 18 B/P (MAP) 148/59 (88) 140/69 (92) Pulse Ox 98 99 99 97 O2 Delivery Room Air Room Air Room Air Room Air 12/03/19 12/03/19 05:51 07:15 Temp 98.2 98.2 Pulse 68 Resp 16 20 B/P (MAP) 135/67 (89) Pulse Ox 97 97 O2 Delivery Room Air Room Air Intake and Output 12/02/19 12/02/19 12/03/19 15:00 23:00 07:00 Intake Total 540 ml 400 ml 300 ml Output Total 1850 ml 600 ml 750 ml Balance -1310 ml -200 ml -450 ml NILTON HERNANDEZ MD Dec 03, 2019 08:10
[2019-12-03] MEDS: LISINOPRIL 20 MG TABLET PO SCH (08:57)
[2019-12-03] MEDS: amLODIPine BESYLATE 10 MG TABLET PO SCH (08:58)
[2019-12-03 11:02] VITALS: BP 168/74
[2019-12-03] MEDS: ENOXAPARIN 40 MG/0.4 ML SYRINGE. SQ SCH (12:26)
[2019-12-03 15:06] VITALS: BP 133/67
[2019-12-03 19:00] VITALS: BP 154/74
[2019-12-03] MEDS: ATORVASTATIN CALCIUM 10 MG TABLET. PO SCH (22:00)
[2019-12-03 23:00] VITALS: BP 152/72
[2019-12-04] MEDS: traMADol 50 MG TABLET PO PRN ×3 (01:00→11:10)
[2019-12-04 03:00] VITALS: BP 140/66
[2019-12-04 07:15] VITALS: BP 144/66
--- NOTE | 2019-12-04 10:58 | PDOC ---
PROGRESS NOTES Chief Complaint Chief Complaint DISCHARGE DX ACUTE Mechanical fall, low back pain Gait instability No acute intracranial findings. CKD STAGE 3 Morbid obesity atypical chest discomfort Cocaine abuse, long-standing HX DDD L/S HYPERTENSION CAD Post CABG surgical changes are present. ON CXR History of Present Illness History of Present Illness [id number] Patient seen and examined Discussed with RN Chart reviewed D/C PLANNING 34 MIN Mr Egan is a 79 yo M w/ PMHx CAD s/p CABG, HTN, HLD, cocaine abuse who p/w abram dy aches after falling and striking his head on concrete, local bystanders called 911. Noted in ED with uncontrolled HTN as well as chest pain. Head CT in the ER was unremarkable. UDS positive for cocaine. This morning he is feeling some aches. BP better controlled. PT recommends SNF based on his functional status and gait. Vitals Vitals Vital Signs Date Time Temp Pulse Resp B/P (MAP) Pulse Ox O2 Delivery O2 Flow Rate FiO2 12/04/19 07:15 98.6 78 20 144/66 (92) 98 Room Air 98.6 Physical Exam General: Alert, Oriented X3, Cooperative, No acute distress Heart: Regular rate, Normal S1 Lungs: Clear Abdomen: Normal bowel sounds, Soft, No tenderness, Other (OBESE) Extremities: No clubbing, No cyanosis Skin: No rashes Assessment and Plan Assessmemt and Plan Problems Medical Problems: (1) Chest pain Status: Acute (2) Dizziness Status: Acute Comment Review of Relevant I have reviewed the following items stormy (where applicable) has been applied. Medications Current Medications Aspirin (Soto Aspirin) 325 mg 1X ONCE PO Last administered on 11/30/19at 09:30; Start 11/30/19 at 09:15; Stop 11/30/19 at 09:16; Status DC Ondansetron HCl (Zofran) 4 mg PRN Q8HRS PRN IV NAUSEA/VOMITING; Start 11/30/19 at 12:30; Status Cancel Fentanyl Citrate (Fentanyl 2ml Vial) 50 mcg PRN Q1HR PRN IV PAIN Last administered on 11/30/19at 15:50; Start 11/30/19 at 12:30; Stop 11/30/19 at 16:11; Status DC Acetaminophen (Tylenol) 650 mg PRN Q4HRS PRN PO FEVER; Start 11/30/19 at 12:30; Status Cancel Sodium Chloride (Normal Saline Flush) 3 ml QSHIFT PRN IV AFTER MEDS AND BLOOD DRAWS; Start 11/30/19 at 13:00 Sodium Chloride 1,000 ml @ 65 mls/hr [id number] IV Last administered on 12/01/19at 18:32; Start 11/30/19 at 12:51; Stop 12/02/19 at 16:23; Status DC Ondansetron HCl (Zofran) 4 mg PRN Q4HRS PRN IV NAUSEA/VOMITING; Start 11/30/19 at 13:00 Acetaminophen (Tylenol) 650 mg PRN Q4HRS PRN PO TEMP OVER 100.4F OR MILD PAIN; Start 11/30/19 at 13:00 Al Hydroxide/Mg Hydroxide (Mylanta Plus Xs) 30 ml PRN DAILY PRN PO HEARTBURN / GAS; Start 11/30/19 at 13:00 Clonidine HCl (Catapres) 0.1 mg PRN Q6HRS PRN PO SBP>160 OR DBP>90; Start 11/30/19 at 13:00 Docusate Sodium (Colace) 100 mg PRN BID PRN PO CONSTIPATION Last administered on 12/02/19at 12:08; Start 11/30/19 at 13:00 Albuterol Sulfate (Ventolin Neb Soln) 2.5 mg PRN Q4HRS PRN NEB SHORTNESS OF BREATH; Start 11/30/19 at 13:00 Guaifenesin (Robitussin) 200 mg PRN Q4HRS PRN PO COUGH; Start 11/30/19 at 13:00 Enoxaparin Sodium (Lovenox 40mg Syringe) 40 mg Q24H SQ ; Start 11/30/19 at 13:00 Hydrochlorothiazide (Hydrodiuril) 25 mg DAILY PO Last administered on 11/30/19at 13:18; Start 11/30/19 at 14:00; Stop 12/01/19 at 08:55; Status DC Lisinopril (Prinivil) 20 mg DAILY PO Last administered on 12/03/19at 08:57; Start 11/30/19 at 14:00 Fentanyl Citrate (Fentanyl 2ml Vial) 50 mcg PRN Q3HRS PRN IVP PAIN Last administered on 12/01/19at 09:35; Start 11/30/19 at 16:15; Stop 12/01/19 at 15:14; Status DC Amlodipine Besylate (Norvasc) 10 mg DAILY PO Last administered on 12/03/19at 08:58; Start 12/01/19 at 09:00 Atorvastatin Calcium (Lipitor) 10 mg HS PO Last administered on 12/03/19at 22:00; Start 12/01/19 at 21:00 Hydralazine HCl (Apresoline) 25 mg BID PO ; Start 12/01/19 at 09:00; Stop 12/01/19 at 11:01; Status DC Pantoprazole Sodium (Protonix) 40 mg DAILYAC PO Last administered on 12/03/19at 05:50; Start 12/01/19 at 09:30 Tramadol HCl (Ultram) 50 mg PRN Q6HRS PRN PO MODERATE PAIN, SEVERE PAIN Last administered on 12/04/19at 03:31; Start 12/01/19 at 15:15 Active Scripts Active Reported Oxycodone Hcl 20 Mg Tablet 1 Tab PO QIDPRN PRN Atorvastatin Calcium 10 Mg Tablet 10 Mg PO HS Amlodipine Besylate 10 Mg Tablet 10 Mg PO DAILY Pantoprazole Sodium (Pantoprazole Sodium) 40 Mg Tablet.dr 40 Mg PO DAILYAC Hydralazine Hcl 25 Mg Tablet 1 Tab PO BID Hydralazine Hcl 10 Mg Tablet 1 Tab PO BID Prometh-Codein 6.25-10 mg/5 ml (Promethazine HCl/Codeine) 5 Ml Syrup 5 Ml PO PRN Q12HR PRN MDD 30 Milliliter(s) Vitals/I & O Vital Sign - Last 24 Hours 12/03/19 12/03/19 12/03/19 12/03/19 11:02 15:06 19:00 20:00 Temp 97.8 97.6 98.5 97.8 97.6 98.5 Pulse 63 62 59 Resp 18 20 20 B/P (MAP) 168/74 (105) 133/67 (89) 154/74 (100) Pulse Ox 95 97 94 O2 Delivery Room Air Room Air Room Air Room Air 12/03/19 12/04/19 12/04/19 12/04/19 23:00 01:00 03:00 03:31 Temp 98.1 98.5 98.1 98.5 Pulse 55 59 Resp 20 20 B/P (MAP) 152/72 (98) 140/66 (90) Pulse Ox 93 93 97 93 O2 Delivery Room Air Room Air Room Air Room Air 12/04/19 07:15 Temp 98.6 98.6 Pulse 78 Resp 20 B/P (MAP) 144/66 (92) Pulse Ox 98 O2 Delivery Room Air Intake and Output 12/03/19 12/03/19 12/04/19 15:00 23:00 07:00 Intake Total 300 ml 700 ml 600 ml Output Total 150 ml 750 ml 850 ml Balance 150 ml -50 ml -250 ml NILTON HERNANDEZ MD Dec 04, 2019 10:58
[2019-12-04 11:03] VITALS: BP 162/68
[2019-12-04 11:11] VITALS: BP 144/66
[2019-12-04] MEDS: amLODIPine BESYLATE 10 MG TABLET PO SCH (11:11)
[2019-12-04] MEDS: PANTOPRAZOLE 40 MG TABLET.DR. PO SCH (11:11)
[2019-12-04] MEDS: LISINOPRIL 20 MG TABLET PO SCH (11:11)
--- NOTE | 2019-12-04 12:25 | PDOC3 ---
Discharge Summary Date of Admission: Nov 30, 2019 Date of Discharge: Dec 04, 2019 Follow-Up: 3-5 days Admitting Diagnosis comment: DISCHARGE DX ACUTE Mechanical fall, low back pain Gait instability No acute intracranial findings. CKD STAGE 3 Morbid obesity atypical chest discomfort Cocaine abuse, long-standing HX DDD L/S HYPERTENSION CAD Post CABG surgical changes are present. ON CXR History of Present Illness History of Present Illness [id number] Patient seen and examined Discussed with RN Chart reviewed D/C PLANNING 34 MIN Mr Egan is a 79 yo M w/ PMHx CAD s/p CABG, HTN, HLD, cocaine abuse who p/w body aches after falling and striking his head on concrete, local bystanders called 911. Noted in ED with uncontrolled HTN as well as chest pain. Head CT in the ER was unremarkable. UDS positive for cocaine. 12/03 D/C TO SNF Vitals Vitals Vital Signs Date Time Temp Pulse Resp B/P (MAP) Pulse Ox O2 Delivery O2 Flow Rate FiO2 12/04/19 07:15 98.6 78 20 144/66 (92) 98 Room Air 98.6 Physical Exam General: Alert, Oriented X3, Cooperative, No acute distress Heart: Regular rate, Normal S1 Lungs: Clear Abdomen: Normal bowel sounds, Soft, No tenderness, Other (OBESE) Extremities: No clubbing, No cyanosis Skin: No rashes Assessment and Plan Assessmemt and Plan Problems Medical Problems: (1) Chest pain Status: Acute (2) Dizziness Status: Acute FINAL DIAGNOSIS Problems Medical Problems: (1) Chest pain Status: Acute (2) Dizziness Status: Acute Brief Hospital Course Mr. Egan is a 79 old [sex] who presented with [ FALL, GAIT INSTABILITY] CONDITION AT DISCHARGE: Improved Discharge Medications Current Medications Aspirin (Soto Aspirin) 325 mg 1X ONCE PO Last administered on 11/30/19at 09:30; Start 11/30/19 at 09:15; Stop 11/30/19 at 09:16; Status DC Ondansetron HCl (Zofran) 4 mg PRN Q8HRS PRN IV NAUSEA/VOMITING; Start 11/30/19 at 12:30; Status Cancel Fentanyl Citrate (Fentanyl 2ml Vial) 50 mcg PRN Q1HR PRN IV PAIN Last adm inistered on 11/30/19at 15:50; Start 11/30/19 at 12:30; Stop 11/30/19 at 16:11; Status DC Acetaminophen (Tylenol) 650 mg PRN Q4HRS PRN PO FEVER; Start 11/30/19 at 12:30; Status Cancel Sodium Chloride (Normal Saline Flush) 3 ml QSHIFT PRN IV AFTER MEDS AND BLOOD DRAWS; Start 11/30/19 at 13:00 Sodium Chloride 1,000 ml @ 65 mls/hr [id number] IV Last administered on 12/01/19at 18:32; Start 11/30/19 at 12:51; Stop 12/02/19 at 16:23; Status DC Ondansetron HCl (Zofran) 4 mg PRN Q4HRS PRN IV NAUSEA/VOMITING; Start 11/30/19 at 13:00 Acetaminophen (Tylenol) 650 mg PRN Q4HRS PRN PO TEMP OVER 100.4F OR MILD PAIN; Start 11/30/19 at 13:00 Al Hydroxide/Mg Hydroxide (Mylanta Plus Xs) 30 ml PRN DAILY PRN PO HEARTBURN / GAS; Start 11/30/19 at 13:00 Clonidine HCl (Catapres) 0.1 mg PRN Q6HRS PRN PO SBP>160 OR DBP>90; Start 11/30/19 at 13:00 Docusate Sodium (Colace) 100 mg PRN BID PRN PO CONSTIPATION Last administered on 12/02/19at 12:08; Start 11/30/19 at 13:00 Albuterol Sulfate (Ventolin Neb Soln) 2.5 mg PRN Q4HRS PRN NEB SHORTNESS OF BREATH; Start 11/30/19 at 13:00 Guaifenesin (Robitussin) 200 mg PRN Q4HRS PRN PO COUGH; Start 11/30/19 at 13:00 Enoxaparin Sodium (Lovenox 40mg Syringe) 40 mg Q24H SQ ; Start 11/30/19 at 13:00 Hydrochlorothiazide (Hydrodiuril) 25 mg DAILY PO Last administered on 11/30/19at 13:18; Start 11/30/19 at 14:00; Stop 12/01/19 at 08:55; Status DC Lisinopril (Prinivil) 20 mg DAILY PO Last administered on 12/04/19 11:11; Start 11/30/19 at 14:00 Fentanyl Citrate (Fentanyl 2ml Vial) 50 mcg PRN Q3HRS PRN IVP PAIN Last administered on 12/01/19at 09:35; Start 11/30/19 at 16:15; Stop 12/01/19 at 15:14; Status DC Amlodipine Besylate (Norvasc) 10 mg DAILY PO Last administered on 12/04/19 11:11; Start 12/01/19 at 09:00 Atorvastatin Calcium (Lipitor) 10 mg HS PO Last administered on 12/03/19at 22:00; Start 12/01/19 at 21:00 Hydralazine HCl (Apresoline) 25 mg BID PO ; Start 12/01/19 at 09:00; Stop 12/01/19 at 11:01; Status DC Pantoprazole Sodium (Protonix) 40 mg DAILYAC PO Last administered on 12/04/19at 11:11; Start 12/01/19 at 09:30 Tramadol HCl (Ultram) 50 mg PRN Q6HRS PRN PO MODERATE PAIN, SEVERE PAIN Last administered on 12/04/19at 11:10; Start 12/01/19 at 15:15 Active Scripts Active Reported Oxycodone Hcl 20 Mg Tablet 1 Tab PO QIDPRN PRN Atorvastatin Calcium 10 Mg Tablet 10 Mg PO HS Amlodipine Besylate 10 Mg Tablet 10 Mg PO DAILY Pantoprazole Sodium (Pantoprazole Sodium) 40 Mg Tablet.dr 40 Mg PO DAILYAC Hydralazine Hcl 25 Mg Tablet 1 Tab PO BID Hydralazine Hcl 10 Mg Tablet 1 Tab PO BID Prometh-Codein 6.25-10 mg/5 ml (Promethazine HCl/Codeine) 5 Ml Syrup 5 Ml PO PRN Q12HR PRN MDD 30 Milliliter(s) Vital Signs Vital Signs Date Time Temp Pulse Resp B/P (MAP) Pulse Ox O2 Delivery O2 Flow Rate FiO2 12/04/19 11:57 98 Room Air 12/04/19 11:11 78 144/66 12/04/19 11:03 97.8 18 97.8 Allergies Allergies Coded Allergies Type Severity Reaction Last Updated Verified No Known Drug Allergies 09/30/14 No Disposition/Orders: Other (D/C TO SNF) NILTON HERNANDEZ MD 25, 2020 12:25
[2019-12-04] MEDS ORDERED: DOCU-153 PO (12:28)
[2019-12-04] MEDS ORDERED: ALBU2.5V8 NEB (12:28)
[2019-12-04] MEDS ORDERED: GUAI100L12 PO (12:28)
[2019-12-04] MEDS ORDERED: ACET325T9 PO (12:28)
[2019-12-04] MEDS ORDERED: MAG30ORA2 PO (12:28)
[2019-12-04] MEDS ORDERED: LISI-130 PO (12:28)
--- NOTE | 2019-12-04 12:29 | SNU/HH DC ---
DISCHARGE ORDERS DISCHARGE INFORMATION: FINAL DIAGNOSIS Problems Medical Problems: (1) Chest pain Status: Acute (2) Dizziness Status: Acute CONDITION ON DISCHARGE: Stable CODE STATUS: Code Status: Full MCC: SNF STAY <30 DAYS: Yes HOSPICE: HOSPICE: No HOSPICE EVAL & TREAT: No LTAC: ADMIT TO LTAC: No POST DISCHARGE ORDERS: ACTIVITY ORDERS: Activity as tolerated DIET AFTER DISCHARGE: Cardiac CHECKS AFTER DISCHARGE: CHECKS AFTER DISCHARGE: Check blood press - daily TREATMENT/EQUIPMENT ORDERS: Physical Therapy For: Evalulation/Treatment Occupational Therapy For: Evaluation/Treatment DISCHARGE MEDICATIONS: Home Meds Active Scripts Docusate Sodium (DOK) 100 Mg Capsule, 100 MG PO PRN BID PRN for CONSTIPATION for 30 Days, #30 CAP Prov:NILTON HERNANDEZ MD 12/04/19 Mag Hydrox/Al Hydrox/Simeth (MAG-AL PLUS XS SUSPENSION) 30 Ml Oral.susp, 30 ML PO PRN DAILY PRN for HEARTBURN / GAS for 10 Days, #120 MISC Prov:NILTON HERNANDEZ MD 12/04/19 Guaifenesin (GUAIFENESIN) 100 Mg/5 Ml Liquid, 200 MG PO PRN Q4HRS PRN for COUGH for 10 Days, #120 LIQUID Prov:NILTON HERNANDEZ MD 12/04/19 Acetaminophen (TYLENOL) 325 Mg Tablet, 650 MG PO PRN Q4HRS PRN for TEMP OVER 100.4F OR MILD PAIN for 30 Days, #60 TAB Prov:NILTON HERNANDEZ MD 12/04/19 Lisinopril (LISINOPRIL) 40 Mg Tablet, 20 MG PO DAILY for BLOOD PRESSURE for 30 Days, #15 TAB Prov:NILTON HERNANDEZ MD 12/04/19 Albuterol Sulfate (Proair Hfa) 8.5 Gm Hfa.aer.ad, 2.5 MG NEB PRN Q4HRS PRN for SHORTNESS OF BREATH for 30 Days, #1 INHALER Prov:NILTON HERNANDEZ MD 12/04/19 Reported Medications Atorvastatin Calcium (ATORVASTATIN CALCIUM) 10 Mg Tablet, 10 MG PO HS for FOR CHOLESTEROL, #30 TAB 0 Refills 11/30/19 Amlodipine Besylate (AMLODIPINE BESYLATE) 10 Mg Tablet, 10 MG PO DAILY for HTN, TAB 11/30/19 Pantoprazole Sodium (PANTOPRAZOLE SODIUM ) 40 Mg Tablet.dr, 40 MG PO DAILYAC for GERD, TAB 11/30/19 Discontinued Reported Medications Oxycodone Hcl (OXYCODONE HCL) 20 Mg Tablet, 1 TAB PO QIDPRN PRN for pain 11/30/19 Hydralazine Hcl (HYDRALAZINE HCL) 25 Mg Tablet, 1 TAB PO BID for HTN, #60 TAB 5 Refills 11/30/19 Hydralazine Hcl (HYDRALAZINE HCL) 10 Mg Tablet, 1 TAB PO BID for HTN, #60 TAB 3 Refills 11/30/19 Promethazine HCl/Codeine (Prometh-Codein 6.25-10 mg/5 ml) 5 Ml Syrup, 5 ML PO PRN Q12HR PRN for cough MDD 30 Milliliter(s), #120 ML 0 Refills 11/30/19 NILTON HERNANDEZ MD Dec 04, 2019 12:29
--- NOTE | 2019-12-04 12:41 | NUR ---
SS following up with discharge planning. Insurance authorization received for [facility], ; fax [phone]. Discharge orders received. SS phoned and faxed discharge orders to [facility]. Pt will discharge today and go to [facility] at 1430. [facility] to provide transportation. Pt and pt's RN notified.
[2019-12-04] MEDS: ENOXAPARIN 40 MG/0.4 ML SYRINGE. SQ SCH (13:00)
[2019-12-04] MEDS ORDERED: MAGNESIUM HYDROXIDE 2,400 MG/30 ML ORAL.SUSP. PO PRN (13:00)
[2019-12-04 14:11] LABS: BASO % 1 % (0-3); EOS # 0.1 x10^3/uL (0.0-0.7); EOS % 2 % (0-3); HEMATOCRIT 48.7 % (39.0-53.0); LYMPH # 1.7 x10^3/uL (1.0-4.8); LYMPH % 33 % (24-48); MEAN CORPUSCULAR HEMOGLOBIN 28 pg (25-35); MEAN CORPUSCULAR HGB CONC 33 g/dL (31-37); MEAN CORPUSCULAR VOLUME 86 fL (79-100); MONO # 0.5 x10^3/uL (0.0-1.1); MONO % 11 % (0-9); NEUT # 2.7 x10^3/uL (1.8-7.7); NEUT % 54 % (31-73); PLATELET COUNT 187 x10^3/uL (140-400); RED CELL DISTRIBUTION WIDTH 13.3 % (11.5-14.5); WHITE BLOOD COUNT 5.1 x10^3/uL (4.0-11.0)
[2019-12-04 14:35] LABS: ALBUMIN/GLOBULIN RATIO 0.8 (1.0-1.7); CALCIUM 8.7 mg/dL (8.5-10.1); CREATININE 1.3 mg/dL (0.7-1.3); GFR 64.4; TOTAL BILIRUBIN 0.4 mg/dL (0.2-1.0); TOTAL PROTEIN 6.8 g/dL (6.4-8.2)
--- NOTE | 2019-12-04 14:45 | NUR ---
Discharge Note: GLEN MENDEZ [address] Discharge instructions and discharge home medications reviewed with Jer at [facility] and a copy given. All questions have been answered and understanding verbalized. The following instructions and handouts were given: transfer of care Discontinued lines and drains: 22 gauge right AC tip intact. patient tolerated well. Patient discharged to [facility] via transport.
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
== END 2019-12-04 14:38 | DRG 392 ==
LOC: ER 09:00 → 2 NORTH 12:20 → 6 SOUTH 12-03 06:40
PROVIDERS: ADMIT Family Medicine; ATTEND Family Medicine
DX: K21.9 Gastro-esophageal reflux disease without esophagitis (principal); M54.5 Low back pain; N18.3 Chronic kidney disease, stage 3 (moderate); F17.210 Nicotine dependence, cigarettes, uncomplicated; E66.01 Morbid (severe) obesity due to excess calories; Z68.31 Body mass index [BMI] 31.0-31.9, adult; F14.10 Cocaine abuse, uncomplicated; I12.9 Hypertensive chronic kidney disease with stage 1 through stage 4 chronic kidney disease, or unspecified chronic kidney disease; I25.10 Atherosclerotic heart disease of native coronary artery without angina pectoris; G89.29 Other chronic pain; E78.5 Hyperlipidemia, unspecified; B35.1 Tinea unguium; I73.9 Peripheral vascular disease, unspecified; L60.0 Ingrowing nail; L60.1 Onycholysis; W18.30XA Fall on same level, unspecified, initial encounter; W22.09XA Striking against other stationary object, initial encounter; Y93.01 Activity, walking, marching and hiking; Y92.89 Other specified places as the place of occurrence of the external cause; Y99.8 Other external cause status; Z95.5 Presence of coronary angioplasty implant and graft; Z95.1 Presence of aortocoronary bypass graft; Z82.49 Family history of ischemic heart disease and other diseases of the circulatory system
CPT/HCPCS: 36415; 70450; 71045; 71100; 72072; 72125; 80053; 80307; 81001; 83690; 84484; 85025; 85610; 93005; 93306; J3010; J7030; 97110; 97116; 97530; 97535; 99285-25; G0378

== ENCOUNTER 2019-12-19 13:40 | Emergency (ER) | payer OTHER, MEDICAID ==
[~2019-12-19] VITALS: Ht 180.3 cm; Wt 102.2 kg
[~2019-12-19 13:40] MED LIST changes: +ACET325T9 PO; +ALBU2.5V8 NEB; +AMLO10TA8 PO; +ATOR10TA60 PO; +DOCU-153 PO; +GUAI100L12 PO; +HYDR-2867 PO; +HYDR-2868 PO; +LISI-130 PO; +MAG30ORA2 PO; +OXYC20TA PO; +PANT40TA77 PO; +PROM5SYR2 PO
[2019-12-19] MEDS ORDERED: ONDANSETRON PF 4 MG/2 ML VIAL. IVP ONE (14:30)
[2019-12-19 14:39] LABS: BASO % 1 % (0-3); EOS % 0 % (0-3); HEMATOCRIT 49.2 % (39.0-53.0); HEMOGLOBIN 16.4 g/dL (13.0-17.5); LYMPH # 0.7 x10^3/uL (1.0-4.8); LYMPH % 16 % (24-48); MEAN CORPUSCULAR HEMOGLOBIN 28 pg (25-35); MEAN CORPUSCULAR HGB CONC 33 g/dL (31-37); MEAN CORPUSCULAR VOLUME 84 fL (79-100); MONO # 0.5 x10^3/uL (0.0-1.1); MONO % 12 % (0-9); NEUT # 2.9 x10^3/uL (1.8-7.7); NEUT % 71 % (31-73); PLATELET COUNT 124 x10^3/uL (140-400); RED BLOOD COUNT 5.84 x10^6/uL (4.30-5.70); RED CELL DISTRIBUTION WIDTH 12.9 % (11.5-14.5); WHITE BLOOD COUNT 4.1 x10^3/uL (4.0-11.0)
--- NOTE | 2019-12-19 14:42 | EKG ---
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
[2019-12-19 14:55] LABS: CALCIUM 8.5 mg/dL (8.5-10.1); CREATININE 1.3 mg/dL (0.7-1.3); GFR 64.4; POTASSIUM 4.5 mmol/L (3.5-5.1)
[2019-12-19 14:59] LABS: INFLUENZA A PATIENT NEGATIVE (NEGATIVE); INFLUENZA B PATIENT NEGATIVE (NEGATIVE)
[2019-12-19 15:00] LABS: ALBUMIN 3.4 g/dL (3.4-5.0); ALBUMIN/GLOBULIN RATIO 0.8 (1.0-1.7); TOTAL BILIRUBIN 0.6 mg/dL (0.2-1.0); TOTAL PROTEIN 7.8 g/dL (6.4-8.2)
--- NOTE | 2019-12-19 15:01 | RAD ---
PORTABLE CHEST 1V Clinical History: Dyspnea Technique: AP view of the chest was obtained at 12/19/2019 2:30 PM. Comparison: November 30, 2019. Findings: Median sternotomy wires are again seen. The heart is normal size. The pulmonary vessels appear normal. There is perihilar linear and reticular opacities bilaterally. The pleural margins are clear. Impression: Mild interstitial infiltrates could be secondary to CHF or atypical pneumonia. Electronically signed by: Edinson Khan III, MD (12/19/2019 2:58 PM) [id number]
[2019-12-19] MEDS ORDERED: IV NORMAL SALINE 500ML BAG 500 ML IV ONE (15:45)
[2019-12-19] MEDS ORDERED: ALBU2.5V8 IH (15:48)
[2019-12-19] MEDS ORDERED: BENZ100C PO (15:48)
[2019-12-19] MEDS ORDERED: ONDA4TAB7 PO (15:48)
[2019-12-19] MEDS ORDERED: COVID 19 test (15:49)
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
[2019-12-19 16:40] VITALS: BP 140/66
== END 2019-12-19 17:04 | disposition home or self-care (01) ==
LOC: ER 13:40
DX: Z20.828 Contact with and (suspected) exposure to other viral communicable diseases (principal); B34.8 Other viral infections of unspecified site; R11.2 Nausea with vomiting, unspecified; E87.2 Acidosis; I10 Essential (primary) hypertension; Z87.891 Personal history of nicotine dependence; Z95.1 Presence of aortocoronary bypass graft; Z95.5 Presence of coronary angioplasty implant and graft; Z98.890 Other specified postprocedural states
CPT/HCPCS: 36415; 71045; 80053; 82550; 83605; 83880; 84484; 85025; 87804; 93005; 96361; 96374; 99285; J2405; J7040

== ENCOUNTER 2020-05-13 09:27 | Inpatient (IN) | payer MEDICARE, MEDICAID ==
[~2020-05-13] VITALS: Ht 180.3 cm; Wt 97.3 kg
[~2020-05-13 09:27] MED LIST changes: +ALBU2.5V8 IH; +BENZ100C PO; +COVID 19 test; +ONDA4TAB7 PO
[2020-05-13 10:00] LABS: BASO # 0.1 x10^3/uL (0.0-0.2); BASO % 1 % (0-3); EOS # 0.1 x10^3/uL (0.0-0.7); EOS % 1 % (0-3); HEMATOCRIT 51.1 % (39.0-53.0); HEMOGLOBIN 17.1 g/dL (13.0-17.5); LYMPH # 1.6 x10^3/uL (1.0-4.8); LYMPH % 18 % (24-48); MEAN CORPUSCULAR HEMOGLOBIN 29 pg (25-35); MEAN CORPUSCULAR HGB CONC 33 g/dL (31-37); MEAN CORPUSCULAR VOLUME 86 fL (79-100); MONO # 0.7 x10^3/uL (0.0-1.1); MONO % 8 % (0-9); NEUT # 6.2 x10^3/uL (1.8-7.7); NEUT % 72 % (31-73); PLATELET COUNT 203 x10^3/uL (140-400); RED BLOOD COUNT 5.97 x10^6/uL (4.30-5.70); RED CELL DISTRIBUTION WIDTH 13.1 % (11.5-14.5); WHITE BLOOD COUNT 8.6 x10^3/uL (4.0-11.0)
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
[2020-05-13 10:10] LABS: CALCIUM 9.3 mg/dL (8.5-10.1); CREATININE 1.5 mg/dL (0.7-1.3); GFR 54.6
--- NOTE | 2020-05-13 10:16 | RAD ---
EXAMINATION: PORTABLE CHEST 1V CLINICAL HISTORY: Reason: CHEST PAIN EXAM DATE/TIME: 05/13/2020 9:35 AM COMPARISON: 04/19/2020 FINDINGS: Lines, tubes, and devices: None. Cardiomediastinal silhouette: Normal heart size. Aortic atherosclerotic calcification. Lungs and pleura: Decreased interstitial opacities with mild residual. No evidence of focal airspace consolidation or pleural effusion. Pulmonary vasculature unremarkable. Bones and soft tissues: Intact median sternotomy wires and paramediastinal surgical clips. Degenerative changes of the thoracic spine. IMPRESSION: Mild residual interstitial disease. Electronically signed by: Maximo Almaraz DO (05/13/2020 10:13 AM) [id number]
[2020-05-13 10:17] LABS: ALBUMIN 4.1 g/dL (3.4-5.0); MAGNESIUM 2.2 mg/dL (1.8-2.4); TOTAL BILIRUBIN 0.8 mg/dL (0.2-1.0); TOTAL PROTEIN 8.3 g/dL (6.4-8.2)
[2020-05-13 10:27] LABS: PROTHROMBIN TIME PATIENT 13.7 SEC (11.7-14.0)
[2020-05-13] MEDS ORDERED: ASPIRIN CHEWABLE 81 MG TABLET. PO ONE (10:30)
[2020-05-13] MEDS ORDERED: MORPHINE SULFATE 4 MG/ML VIAL. ONE (10:33)
[2020-05-13] MEDS ORDERED: HEPARIN for IV BOLUS 10,000 UNIT/10 ML VIAL. IV PRN (10:45)
[2020-05-13] MEDS ORDERED: ONDANSETRON PF 4 MG/2 ML VIAL. IVP ONE (10:45)
[2020-05-13] MEDS ORDERED: MORPHINE SULFATE 4 MG/ML VIAL. IV ONE (10:45)
[2020-05-13] MEDS ORDERED: ONDANSETRON PF 4 MG/2 ML VIAL. IV PRN (10:45)
[2020-05-13] MEDS ORDERED: HEPARIN for IV BOLUS 10,000 UNIT/10 ML VIAL. IV ONE (11:00)
--- NOTE | 2020-05-13 11:13 | PDOC1 ---
History and Physical Date of Admission Date of Admission DATE: 05/13/20 TIME: 11:12 Identification/Chief Complaint Chief Complaint Chest pain Source Source: Patient History of Present Illness History of Present Illness Patient is a 79-year-old male who presents with complaint of chest pain since last night. He reports burning, substernal chest pain, 5/10. Reports associated nausea and vomiting. Patient denies any significant navigating aggravating factors, but states his chest pain is improved with medications in the ER. Patient admits to a history of a quadruple bypass with stent placement. He is a former tobacco smoker and current intermittent crack cocaine user. Past Medical History Psych: Addictions Musculoskeletal: low back pain, Osteoarthritis Renal/: Chronic renal insuff Past Surgical History Past Surgical History: CABG Family History Family History: Coronary Artery Disease, Heart Disease, High Cholestrol, Hypertension, Obesity Family History: Parent Social History Smoke: Quit ALCOHOL: occassional Drugs: Cocaine, Marijuana Current Problem List Problem List Problems Medical Problems: (1) NSTEMI (non-ST elevated myocardial infarction) Status: Acute Current Medications Current Medications Current Medications Aspirin (Aspirin Chewable) 324 mg 1X ONCE PO Last administered on 05/13/20at 10:34; Start 05/13/20 at 10:30; Stop 05/13/20 at 10:31; Status DC Morphine Sulfate (Morphine Sulfate) 4 mg 1X ONCE IV Last administered on 05/13/20at 10:36; Start 05/13/20 at 10:45; Stop 05/13/20 at 10:46; Status DC Ondansetron HCl (Zofran) 4 mg 1X ONCE IVP ; Start 05/13/20 at 10:45; Stop 05/13/20 at 10:46; Status DC Morphine Sulfate (Morphine Sulfate) 4 mg STK-MED ONCE .ROUTE ; Start 05/13/20 at 10:33; Stop 05/13/20 at 10:33; Status DC Heparin Sodium (Porcine) (Heparin Sodium) 4,000 unit 1X ONCE IV ; Start 05/13/20 at 11:00; Stop 05/13/20 at 11:01; Status DC Heparin Sodium/ Dextrose 250 ml @ 10 mls/hr CONT PRN IV PER PROTOCOL; Start 05/13/20 at 11:00 Heparin Sodium (Porcine) (Heparin Sodium) 2,500 unit PRN Q6HRS PRN IV FOR UFH LEVEL LESS THAN 0.2; Start 05/13/20 at 10:45 Ondansetron HCl (Zofran) 4 mg PRN Q8HRS PRN IV NAUSEA/VOMITING; Start 05/13/20 at 10:45; Stop 05/14/20 at 10:44 Morphine Sulfate (Morphine Sulfate) 2 mg PRN Q2HR PRN IV PAIN; Start 05/13/20 at 10:45; Stop 05/14/20 at 10:44 Active Scripts Active [COVID 19 test] Proair Hfa Inhaler (Albuterol Sulfate) 8.5 Gm Hfa.aer.ad 2 Puff IH PRN Q4-6HRS PRN 21 Days Tessalon Perle (Benzonatate) 100 Mg Capsule 1 Cap PO TID Zofran (Ondansetron Hcl) 4 Mg Tablet 1 Tab PO PRN Q6-8HRS Dok (Docusate Sodium) 100 Mg Capsule 100 Mg PO PRN BID PRN 30 Days Mag-Al Plus Xs Suspension (Mag Hydrox/Al Hydrox/Simeth) 30 Ml Oral.susp 30 Ml PO PRN DAILY PRN 10 Days Guaifenesin 100 Mg/5 Ml Liquid 200 Mg PO PRN Q4HRS PRN 10 Days Tylenol (Acetaminophen) 325 Mg Tablet 650 Mg PO PRN Q4HRS PRN 30 Days Lisinopril 40 Mg Tablet 20 Mg PO DAILY 30 Days Proair Hfa (Albuterol Sulfate) 8.5 Gm Hfa.aer.ad 2.5 Mg NEB PRN Q4HRS PRN 30 Days Reported Atorvastatin Calcium 10 Mg Tablet 10 Mg PO HS Amlodipine Besylate 10 Mg Tablet 10 Mg PO DAILY Pantoprazole Sodium (Pantoprazole Sodium) 40 Mg Tablet.dr 40 Mg PO DAILYAC Allergies Allergies: Coded Allergies: No Known Drug Allergies (Unverified , 09/30/14) ROS Review of System Substernal chest pain, nausea, vomiting. All other systems reviewed and negative. General: No: Chills, Night Sweats, Fatigue, Malaise, Appetite, Other PSYCHOLOGICAL ROS: No: Anxiety, Behavioral Disorder, Concentration difficultie, Decreased libido, Depression, Disorientation, Hallucinations, Hostility, Irritablity, Memory difficulties, Mood Swings, Obsessive thoughts, Physical abuse, Sexual abuse, Sleep disturbances, Suicidal ideation, Other Eyes: No Blurry vision, No Decreased vision, No Double vision, No Dry eyes, No Excessive tearing, No Eye Pain, No Itchy Eyes, No Loss of vision, No Photophobia, No Scotomata, No Uses contacts, No Uses glasses, No Other HEENT: No: Heacaches, Visual Changes, Hearing change, Nasal congestion, Nasal discharge, Oral lesions, Sinus pain, Sore Throat, Epistaxis, Sneezing, Snoring, Tinnitus, Vertigo, Vocal changes, Other Cardiovascular: yes Chest Pain Gastrointestinal: Yes Nausea, Yes Vomiting; No Abdominal Pain, No Diarrhea, No Constipation, No Melena, No Hematochezia, No Other Genitourinary: No Dysuria, No Frequency, No Incontinence, No Hematuria, No Retention, No Discharge, No Urgency, No Pain, No Flank Pain, No Other, No , No , No , No , No , No , No Musculoskeletal: No Gait Disturbance, No Joint Pain, No Joint Stiffness, No Joint Swelling, No Muscle Pain, No Muscular Weakness, No Pain In:, No Swelling In:, No Other Skin: No Dry Skin, No Eczema, No Hair Changes, No Lumps, No Mole Changes, No Mottling, No Nail Changes, No Pruritus, No Rash, No Skin Lesion Changes, No Other, No Acne Physical Exam General: Alert, No acute distress HEENT: Atraumatic, PERRLA, EOMI Lungs: Clear to auscultation, Normal air movement Heart: RRR, no jug vein distention Cardiovascular: S1, S2 Abdomen: Normal bowel sounds, Soft Extremities: No clubbing, No cyanosis, No edema Skin: No rashes, No significant lesion Neuro: Normal gait, Normal tone Psych/Mental Status: Mental status NL, Mood NL Vitals Vitals Vital Signs Date Time Temp Pulse Resp B/P (MAP) Pulse Ox O2 Delivery O2 Flow Rate FiO2 05/13/20 10:36 20 97 Room Air 05/13/20 09:31 97.5 69 171/76 (107) 97.5 Labs Labs Laboratory Tests Test 05/13/20 09:45 White Blood Count 8.6 x10^3/uL (4.0-11.0) Red Blood Count 5.97 x10^6/uL (4.30-5.70) Hemoglobin 17.1 g/dL (13.0-17.5) Hematocrit 51.1 % (39.0-53.0) Mean Corpuscular Volume 86 fL (79-100) Mean Corpuscular Hemoglobin 29 pg (25-35) Mean Corpuscular Hemoglobin Concent 33 g/dL (31-37) Red Cell Distribution Width 13.1 % (11.5-14.5) Platelet Count 203 x10^3/uL (140-400) Neutrophils (%) (Auto) 72 % (31-73) Lymphocytes (%) (Auto) 18 % (24-48) Monocytes (%) (Auto) 8 % (0-9) Eosinophils (%) (Auto) 1 % (0-3) Basophils (%) (Auto) 1 % (0-3) Neutrophils # (Auto) 6.2 x10^3/uL (1.8-7.7) Lymphocytes # (Auto) 1.6 x10^3/uL (1.0-4.8) Monocytes # (Auto) 0.7 x10^3/uL (0.0-1.1) Eosinophils # (Auto) 0.1 x10^3/uL (0.0-0.7) Basophils # (Auto) 0.1 x10^3/uL (0.0-0.2) Prothrombin Time 13.7 SEC (11.7-14.0) Prothromb Time International Ratio 1.1 (0.8-1.1) Activated Partial Thromboplast Time 29 SEC (24-38) Sodium Level 139 mmol/L (136-145) Potassium Level 4.0 mmol/L (3.5-5.1) Chloride Level 104 mmol/L (98-107) Carbon Dioxide Level 28 mmol/L (21-32) Anion Gap 7 (6-14) Blood Urea Nitrogen 20 mg/dL (8-26) Creatinine 1.5 mg/dL (0.7-1.3) Estimated GFR (Cockcroft-Gault) 54.6 BUN/Creatinine Ratio 13 (6-20) Glucose Level 100 mg/dL (70-99) Calcium Level 9.3 mg/dL (8.5-10.1) Magnesium Level 2.2 mg/dL (1.8-2.4) Total Bilirubin 0.8 mg/dL (0.2-1.0) Aspartate Amino Transf (AST/SGOT) 131 U/L (15-37) Alanine Aminotransferase (ALT/SGPT) 33 U/L (16-63) Alkaline Phosphatase 246 U/L (46-116) Troponin I Quantitative 21.236 ng/mL (0.000-0.055) DJ-Gnb-S-Type Natriuretic Peptide 2710 pg/mL (0-449) Total Protein 8.3 g/dL (6.4-8.2) Albumin 4.1 g/dL (3.4-5.0) Albumin/Globulin Ratio 1.0 (1.0-1.7) Lipase 97 U/L (73-393) Laboratory Tests Test 05/13/20 09:45 White Blood Count 8.6 x10^3/uL (4.0-11.0) Red Blood Count 5.97 x10^6/uL (4.30-5.70) Hemoglobin 17.1 g/dL (13.0-17.5) Hematocrit 51.1 % (39.0-53.0) Mean Corpuscular Volume 86 fL (79-100) Mean Corpuscular Hemoglobin 29 pg (25-35) Mean Corpuscular Hemoglobin Concent 33 g/dL (31-37) Red Cell Distribution Width 13.1 % (11.5-14.5) Platelet Count 203 x10^3/uL (140-400) Neutrophils (%) (Auto) 72 % (31-73) Lymphocytes (%) (Auto) 18 % (24-48) Monocytes (%) (Auto) 8 % (0-9) Eosinophils (%) (Auto) 1 % (0-3) Basophils (%) (Auto) 1 % (0-3) Neutrophils # (Auto) 6.2 x10^3/uL (1.8-7.7) Lymphocytes # (Auto) 1.6 x10^3/uL (1.0-4.8) Monocytes # (Auto) 0.7 x10^3/uL (0.0-1.1) Eosinophils # (Auto) 0.1 x10^3/uL (0.0-0.7) Basophils # (Auto) 0.1 x10^3/uL (0.0-0.2) Prothrombin Time 13.7 SEC (11.7-14.0) Prothromb Time International Ratio 1.1 (0.8-1.1) Activated Partial Thromboplast Time 29 SEC (24-38) Sodium Level 139 mmol/L (136-145) Potassium Level 4.0 mmol/L (3.5-5.1) Chloride Level 104 mmol/L (98-107) Carbon Dioxide Level 28 mmol/L (21-32) Anion Gap 7 (6-14) Blood Urea Nitrogen 20 mg/dL (8-26) Creatinine 1.5 mg/dL (0.7-1.3) Estimated GFR (Cockcroft-Gault) 54.6 BUN/Creatinine Ratio 13 (6-20) Glucose Level 100 mg/dL (70-99) Calcium Level 9.3 mg/dL (8.5-10.1) Magnesium Level 2.2 mg/dL (1.8-2.4) Total Bilirubin 0.8 mg/dL (0.2-1.0) Aspartate Amino Transf (AST/SGOT) 131 U/L (15-37) Alanine Aminotransferase (ALT/SGPT) 33 U/L (16-63) Alkaline Phosphatase 246 U/L (46-116) Troponin I Quantitative 21.236 ng/mL (0.000-0.055) ZC-Qyo-D-Type Natriuretic Peptide 2710 pg/mL (0-449) Total Protein 8.3 g/dL (6.4-8.2) Albumin 4.1 g/dL (3.4-5.0) Albumin/Globulin Ratio 1.0 (1.0-1.7) Lipase 97 U/L (73-393) VTE Prophylaxis Ordered VTE Prophylaxis Devices: Yes VTE Pharmacological Prophylaxi: Yes Assessment/Plan Assessment/Plan NSTEMI, ELEAZAR, vasomotor nephropathy, transaminitis Plan: Continue heparin drip, trending troponins. Aspirin, atorvastatin, lisinopril. Morphine as needed for chest pain, Ativan as needed for anxiety. Consults placed to cardiology. N.p.o. after midnight. Cardiac Blueprint Reader in the morning. Patient has not in the surrogate decision maker. CODE STATUS DNR. Justifications for Admission Other Justification MARK BRANDON MD May 13, 2020 11:13
[2020-05-13] MEDS ORDERED: ONDANSETRON PF 4 MG/2 ML VIAL. IVP PRN (11:15)
[2020-05-13] MEDS ORDERED: MORPHINE SULFATE 2 MG/ML VIAL. IV PRN ×2 (11:15)
[2020-05-13] MEDS: HEPARIN 25,000UTS/250ML PREMIX 250 ML IV PRN (11:27)
--- NOTE | 2020-05-13 11:30 | PDOC2 ---
SANGEETA PACE PRODUCTION LINE MANAGER 05/13/20 1130: CARDIAC CONSULT DATE OF CONSULT Date of Consult DATE: 05/13/20 TIME: 11:25 REASON FOR CONSULT Reason for Consult: NSTEMI REFERRING PHYSICIAN Referring Physician: Dr. Antunez SOURCE Source: Chart review, Patient HISTORY OF PRESENT ILLNESS HISTORY OF PRESENT ILLNESS This is a 79 yo male who presented secondary to chest pain. Patient reports was a out working in the yard yesterday and was doing very physical work. Became dizzy/lightheaded and "feel out". Sat down and began feeling better. Later that evening, developed burning sensation in his central chest. Though was GERD. Took antacids, without any significant relief. Pain persisted today and was slightly worse so he came to the ED for further evaluations and treatment. Reports come mild SOA. No dizziness, diaphoresis, or nausea/vomiting. Trop noted at 21 upon arrival, which prompted this consult. Patient does have a h/o CAD and underwent CABG in 2004. Does not follow with cvir tech. Does take routine oral meds. Unfortunately, has history of intermittent cocaine use and reports using last night. Was here in November for chest pain and was positive for cocaine at that point too. PAST MEDICAL HISTORY Cardiovascular: CAD, HTN CENTRAL NERVOUS SYSTEM: CVA GI: GERD Musculoskeletal: Osteoarthritis Renal/: Chronic renal insuff PAST SURGICAL HISTORY Past Surgical History: CABG, Tonsillectomy FAMILY HISTORY Family History: Asthma SOCIAL HISTORY Smoke: No ALCOHOL: occassional Drugs: Cocaine Lives: Friends CURRENT MEDICATIONS CURRENT MEDICATIONS Current Medications Medications (Trade) Dose Ordered Sig/[place] Route PRN Reason Start Time Stop Time Status Last Admin Dose Admin Aspirin (Aspirin Chewable) 324 mg 1X ONCE PO 05/13/20 10:30 05/13/20 10:31 DC 05/13/20 10:34 Morphine Sulfate (Morphine Sulfate) 4 mg 1X ONCE IV 05/13/20 10:45 05/13/20 10:46 DC 05/13/20 10:36 Ondansetron HCl (Zofran) 4 mg 1X ONCE IVP 05/13/20 10:45 05/13/20 10:46 DC 05/13/20 10:39 ALLERGIES ALLERGIES: Coded Allergies: No Known Drug Allergies (Unverified , 09/30/14) ROS Review of System 14 point ROS conducted with pertinent positives noted abone in HPI PHYSICAL EXAM General: Alert, Oriented X3, Cooperative, No acute distress HEENT: Atraumatic, Mucous membr. moist/pink Lungs: Clear to auscultation Heart: Regular rate, Other (2/6 systolic murmur) Abdomen: Soft, No tenderness Extremities: No edema, Normal pulses Skin: No significant lesion Neuro: Normal speech, Sensation intact Psych/Mental Status: Mental status NL, Mood NL MUSCULOSKELETAL: Osteoarthritic changes both hands VITALS/I&O VITALS/I&O: Vital Signs Date Time Temp Pulse Resp B/P (MAP) Pulse Ox O2 Delivery O2 Flow Rate FiO2 05/13/20 10:36 20 97 Room Air 05/13/20 09:31 97.5 69 171/76 (107) 97.5 LABS Lab: Laboratory Tests Test 05/13/20 09:45 White Blood Count 8.6 x10^3/uL (4.0-11.0) Red Blood Count 5.97 x10^6/uL (4.30-5.70) H Hemoglobin 17.1 g/dL (13.0-17.5) Hematocrit 51.1 % (39.0-53.0) Mean Corpuscular Volume 86 fL (79-100) Mean Corpuscular Hemoglobin 29 pg (25-35) Mean Corpuscular Hemoglobin Concent 33 g/dL (31-37) Red Cell Distribution Width 13.1 % (11.5-14.5) Platelet Count 203 x10^3/uL (140-400) Neutrophils (%) (Auto) 72 % (31-73) Lymphocytes (%) (Auto) 18 % (24-48) L Monocytes (%) (Auto) 8 % (0-9) Eosinophils (%) (Auto) 1 % (0-3) Basophils (%) (Auto) 1 % (0-3) Neutrophils # (Auto) 6.2 x10^3/uL (1.8-7.7) Lymphocytes # (Auto) 1.6 x10^3/uL (1.0-4.8) Monocytes # (Auto) 0.7 x10^3/uL (0.0-1.1) Eosinophils # (Auto) 0.1 x10^3/uL (0.0-0.7) Basophils # (Auto) 0.1 x10^3/uL (0.0-0.2) Prothrombin Time 13.7 SEC (11.7-14.0) Prothrombin Time INR 1.1 (0.8-1.1) Activated Partial Thromboplast Time 29 SEC (24-38) Sodium Level 139 mmol/L (136-145) Potassium Level 4.0 mmol/L (3.5-5.1) Chloride Level 104 mmol/L (98-107) Carbon Dioxide Level 28 mmol/L (21-32) Anion Gap 7 (6-14) Blood Urea Nitrogen 20 mg/dL (8-26) Creatinine 1.5 mg/dL (0.7-1.3) H Estimated GFR (Cockcroft-Gault) 54.6 BUN/Creatinine Ratio 13 (6-20) Glucose Level 100 mg/dL (70-99) H Calcium Level 9.3 mg/dL (8.5-10.1) Magnesium Level 2.2 mg/dL (1.8-2.4) Total Bilirubin 0.8 mg/dL (0.2-1.0) Aspartate Amino Transferase (AST) 131 U/L (15-37) H Alanine Aminotransferase (ALT) 33 U/L (16-63) Alkaline Phosphatase 246 U/L (46-116) H Troponin I Quantitative 21.236 ng/mL (0.000-0.055) HJ-Dfi-S-Type Natriuretic Peptide 2710 pg/mL (0-449) H Total Protein 8.3 g/dL (6.4-8.2) H Albumin 4.1 g/dL (3.4-5.0) Albumin/Globulin Ratio 1.0 (1.0-1.7) Lipase 97 U/L (73-393) Laboratory Tests 05/13/20 09:45 Laboratory Tests 05/13/20 09:45 ECHOCARDIOGRAM ECHOCARDIOGRAM <Conclusion> There is mild to modeate concentric left ventricular hypertrophy. The left ventricular systolic function is normal and the ejection fraction is within normal range. The Ejection Fraction is 60-65%. Doppler and Color Flow revealed moderate aortic regurgitation. Doppler and Color Flow revealed mild to moderate pulmonic valvular regurgitation. The ascending aorta is mildly dilated at 3.6 cm. DATE: 12/02/19 1025 ASSESSMENT/PLAN ASSESSMENT/PLAN 1. Chest pain, ACS; initial troponin 21. On heparin gtt 2. CAD s/p CABG 2004. 3. Accelerated hypertension 4. Hyperlipidemia; statin 5. CKD 6. Substance abuse; Cocaine/marijuana use. Use cocaine last night. Discussed/encouraged cessation. Recommendations ASA, statin Continue heparin gtt Trend troponin Limited echo to assess LV systolic function Resume lisinopril. Hydralazine IV PRN for BP control Will hold off on BB with cocaine use Keep NPO p MN Consider cardiac cath in am. R/b/a discussed with patient and he is agreeable. MOLLY SALAS MD 05/13/20 1840: CARDIAC CONSULT ASSESSMENT/PLAN ASSESSMENT/PLAN Patient seen and examined Chest pain. Elevated troponin. Use of cocaine last evening. History of bypass surgery about apparently no recent cardiology follow-up. The patient is feeling better. Will treat with blood pressure control, heparin and oral medications as above. Echocardiogram for LV function. Possible cardiac catheterization tomorrow based on clinical course and patient's wishes. Accelerated hypertension. Restarting baseline blood pressure control with close monitoring. Hyperlipidemia. Will treat with statins. Chronic kidney disease. Monitoring lab. Substance abuse. Cocaine use last night as noted above. Thank you for allowing us to participate in the care of your patient. SANGEETA PACE APRN May 13, 2020 11:30 MOLLY SALAS MD May 13, 2020 18:40
[2020-05-13 11:50] VITALS: BP 171/79
[2020-05-13] MEDS ORDERED: ALBUTEROL SULFATE 2.5 MG/3 ML NEBU. NEB PRN (14:15)
[2020-05-13] MEDS ORDERED: ACETAMINOPHEN 325 MG TABLET. PO PRN (14:15)
[2020-05-13] MEDS ORDERED: DOCUSATE SODIUM 100 MG CAPSULE. PO PRN (14:15)
[2020-05-13] MEDS: amLODIPine BESYLATE 10 MG TABLET PO SCH (15:08)
[2020-05-13] MEDS: LISINOPRIL 20 MG TABLET PO SCH (15:08)
[2020-05-13] MEDS: MORPHINE SULFATE 2 MG/ML VIAL. IV PRN ×2 (15:19→20:34)
[2020-05-13 15:27] VITALS: BP 168/65
[2020-05-13] MEDS ORDERED: hydrALAZINE 20 MG/ML VIAL. IVP PRN (15:30)
[2020-05-13 17:36] LABS: BARBITURATES NEG (NEG); BENZODIAZEPINES NEG (NEG); CANNABINOIDS NEG (NEG); COCAINE POS (NEG); METHADONE NEG (NEG); OPIATES POS (NEG); PHENCYCLIDINE NEG (NEG)
[2020-05-13 17:38] LABS: AMPHETAMINE/METHAMPHETAMINE NEG (NEG)
[2020-05-13 19:31] VITALS: BP 160/50
[2020-05-13] MEDS ORDERED: ATORVASTATIN CALCIUM 10 MG TABLET. PO SCH (21:00)
[2020-05-13] MEDS ORDERED: HEPARIN for SUB-Q USE 5,000 UNIT/ML VIAL. SQ SCH (21:00)
[2020-05-13] MEDS ORDERED: ATORVASTATIN CALCIUM 40 MG TABLET. PO SCH (21:00)
[2020-05-13 22:41] VITALS: BP 133/50
[2020-05-14] VITALS (11 sets, daily range): BP systolic 106–148; BP diastolic 42–64
[2020-05-14 01:37] LABS: CALCIUM 8.7 mg/dL (8.5-10.1); CREATININE 1.3 mg/dL (0.7-1.3); GFR 64.4; POTASSIUM 3.8 mmol/L (3.5-5.1)
[2020-05-14 02:03] LABS: CHOLESTEROL/HDL RATIO 3.3
[2020-05-14 04:03] LABS: BASO # 0.1 x10^3/uL (0.0-0.2); BASO % 1 % (0-3); EOS # 0.1 x10^3/uL (0.0-0.7); EOS % 2 % (0-3); HEMATOCRIT 50.1 % (39.0-53.0); HEMOGLOBIN 16.5 g/dL (13.0-17.5); LYMPH # 2.6 x10^3/uL (1.0-4.8); LYMPH % 36 % (24-48); MEAN CORPUSCULAR HEMOGLOBIN 29 pg (25-35); MEAN CORPUSCULAR HGB CONC 33 g/dL (31-37); MEAN CORPUSCULAR VOLUME 87 fL (79-100); MONO # 0.6 x10^3/uL (0.0-1.1); MONO % 9 % (0-9); NEUT # 3.7 x10^3/uL (1.8-7.7); NEUT % 52 % (31-73); PLATELET COUNT 180 x10^3/uL (140-400); RED BLOOD COUNT 5.79 x10^6/uL (4.30-5.70); RED CELL DISTRIBUTION WIDTH 13.2 % (11.5-14.5); WHITE BLOOD COUNT 7.1 x10^3/uL (4.0-11.0)
--- NOTE | 2020-05-14 06:16 | EKG ---
[facility] [address] [place] [address] Test Date: 2020-05-13 Test Time: 09:37:54 Pat Name: GLEN MENDEZ Department: Room: 210 1 Gender: M Hogshead Hooper: : 1940 Requested By: JULIUS CALDERON Order Number: [id number] Reading MD: Helder Bains MD Measurements Intervals Sharon Rate: 66 P: 32 PA: 260 QRS: -72 QRSD: 92 T: 142 QT: 394 QTc: 415 Interpretive Statements SINUS RHYTHM PROLONGED PA INTERVAL PRIOR ANTEROSEPTAL INFARCT CONSIDER PRIOR INFERIOR INFARCT Electronically Signed On 05-14-2020 7:45:57 CDT by Helder Bains MD
[2020-05-14] MEDS: HEPARIN 25,000UTS/250ML PREMIX 250 ML IV PRN (06:40)
[2020-05-14] MEDS ORDERED: ASPIRIN ENTERIC COATED 81 MG TABLET.DR. PO SCH (08:00)
[2020-05-14] MEDS: amLODIPine BESYLATE 10 MG TABLET PO SCH (08:27)
[2020-05-14] MEDS: LISINOPRIL 20 MG TABLET PO SCH (08:27)
--- NOTE | 2020-05-14 10:56 | PDOC ---
[employer] PROGRESS NOTE Date of Service DOS: DATE: 05/14/20 TIME: 10:38 Chief Complaint Chief Complaint Chest Pain, NSTEMI History of Present Illness History of Present Illness 05/14/2020 Patient seen and examined Discussed with RN Discussed with case management Reviewed chart Patient was resting NAD Patient has hx of quadruple bypass with stent placement 2004 History of recent cocaine use Former smoker but still uses cocaine and marijuana Tox screen was positive for opiates and cocaine AST was elevated at 131 Alk Phos was elevated at 246 BNP 2710 Troponin 21 but trending down Awaiting cath this morning Vitals/I&O Vitals/I&O: Vital Signs Date Time Temp Pulse Resp B/P (MAP) Pulse Ox O2 Delivery O2 Flow Rate FiO2 05/14/20 08:27 61 106/55 05/14/20 07:00 98.4 16 95 Room Air 98.4 I & O 05/13/20 05/13/20 05/14/20 15:00 23:00 07:00 Intake Total 720 ml 250 ml Output Total 650 ml 650 ml Balance 70 ml -400 ml Physical Exam General: Alert, No acute distress Heart: Regular rate, Other (2/6 systolic murmur) Lungs: Clear Abdomen: Normal bowel sounds, Soft Extremities: No clubbing, No cyanosis, No edema Skin: No rashes, No significant lesion Labs Labs: Laboratory Tests Test 05/13/20 12:35 05/13/20 15:35 05/13/20 17:25 05/13/20 17:30 Troponin I Quantitative 19.985 ng/mL (0.000-0.055) 25.246 ng/mL (0.000-0.055) Urine Opiates Screen Pos (NEG) Urine Methadone Screen Neg (NEG) Urine Barbiturates Neg (NEG) Urine Phencyclidine Screen Neg (NEG) Urine Amphetamine/Methamphetamine Neg (NEG) Urine Benzodiazepines Screen Neg (NEG) Urine Cocaine Screen Pos (NEG) Urine Cannabinoids Screen Neg (NEG) Urine Ethyl Alcohol Neg (NEG) Heparin Anti-Xa Act, Unfractionated 0.26 IU/mL (0.30-0.70) Test 05/13/20 18:00 05/14/20 00:01 05/14/20 07:50 Troponin I Quantitative 27.289 ng/mL (0.000-0.055) 21.357 ng/mL (0.000-0.055) White Blood Count 7.1 x10^3/uL (4.0-11.0) Red Blood Count 5.79 x10^6/uL (4.30-5.70) Hemoglobin 16.5 g/dL (13.0-17.5) Hematocrit 50.1 % (39.0-53.0) Mean Corpuscular Volume 87 fL (79-100) Mean Corpuscular Hemoglobin 29 pg (25-35) Mean Corpuscular Hemoglobin Concent 33 g/dL (31-37) Red Cell Distribution Width 13.2 % (11.5-14.5) Platelet Count 180 x10^3/uL (140-400) Neutrophils (%) (Auto) 52 % (31-73) Lymphocytes (%) (Auto) 36 % (24-48) Monocytes (%) (Auto) 9 % (0-9) Eosinophils (%) (Auto) 2 % (0-3) Basophils (%) (Auto) 1 % (0-3) Neutrophils # (Auto) 3.7 x10^3/uL (1.8-7.7) Lymphocytes # (Auto) 2.6 x10^3/uL (1.0-4.8) Monocytes # (Auto) 0.6 x10^3/uL (0.0-1.1) Eosinophils # (Auto) 0.1 x10^3/uL (0.0-0.7) Basophils # (Auto) 0.1 x10^3/uL (0.0-0.2) Heparin Anti-Xa Act, Unfractionated 0.24 IU/mL (0.30-0.70) 0.42 IU/mL (0.30-0.70) Sodium Level 138 mmol/L (136-145) Potassium Level 3.8 mmol/L (3.5-5.1) Chloride Level 102 mmol/L (98-107) Carbon Dioxide Level 29 mmol/L (21-32) Anion Gap 7 (6-14) Blood Urea Nitrogen 21 mg/dL (8-26) Creatinine 1.3 mg/dL (0.7-1.3) Estimated GFR (Cockcroft-Gault) 64.4 Glucose Level 82 mg/dL (70-99) Calcium Level 8.7 mg/dL (8.5-10.1) Triglycerides Level 87 mg/dL (0-150) Cholesterol Level 173 mg/dL (0-200) LDL Cholesterol, Calculated 103 mg/dL (0-100) VLDL Cholesterol, Calculated 17 mg/dL (0-40) Non-HDL Cholesterol Calculated 120 mg/dL (0-129) HDL Cholesterol 53 mg/dL (40-60) Cholesterol/HDL Ratio 3.3 Thyroid Stimulating Hormone (TSH) 1.745 uIU/mL (0.358-3.74) Review of Systems Review of Systems: Denies pain Denies weakness Assessment and Plan Assessmemt and Plan Problems Medical Problems: (1) NSTEMI (non-ST elevated myocardial infarction) Status: Acute Assessment NSTEMI ELEAZAR CAD - Quadruple bypass with stent placement 2004 Hypertension Hyperlipidemia - LDLs were elevated Vasomotor nephropathy Transaminitis - elevated AST 131 Plan Continue heparin drip Trend troponins Cardiac monitoring Continue Aspirin, atorvastatin, lisinopril Morphine as needed for chest pain Ativan as needed for anxiety Awaiting results from Cardiac Supervisor Dry Paste this morning Appreciate Cardiology input Home meds DVT prophylaxis DNR. Comment Review of Relevant I have reviewed the following items stormy (where applicable) has been applied. Medications: Current Medications Medications (Trade) Dose Ordered Sig/[place] Route PRN Reason Start Time Stop Time Status Last Admin Dose Admin Morphine Sulfate (Morphine Sulfate) 4 mg 1X ONCE IV 05/13/20 10:45 05/13/20 10:46 DC 05/13/20 10:36 Ondansetron HCl (Zofran) 4 mg 1X ONCE IVP 05/13/20 10:45 05/13/20 10:46 DC 05/13/20 10:39 Heparin Sodium (Porcine) (Heparin Sodium) 4,000 unit 1X ONCE IV 05/13/20 11:00 05/13/20 11:01 DC 05/13/20 11:28 Heparin Sodium/ Dextrose 250 ml @ 10 mls/hr CONT PRN IV PER PROTOCOL 05/13/20 11:00 05/14/20 06:40 Morphine Sulfate (Morphine Sulfate) 2 mg PRN Q2HR PRN IV PAIN 05/13/20 10:45 05/14/20 08:29 DC 05/13/20 20:34 Amlodipine Besylate (Norvasc) 10 mg DAILY PO 05/13/20 14:30 05/14/20 08:27 Lisinopril (Prinivil) 20 mg DAILY PO 05/13/20 15:00 05/14/20 08:27 Atorvastatin Calcium (Lipitor) 40 mg HS PO 05/13/20 21:00 05/13/20 20:33 Aspirin (Ecotrin) 81 mg [id number] PO 05/14/20 08:00 05/14/20 08:27 Justifications for Admission Other Justification LORIE CARBAJAL III DO May 14, 2020 10:56
[2020-05-14] MEDS ORDERED: LIDOCAINE 1% Multi-Dose 20 ML VIAL. ONE (11:59)
[2020-05-14] MEDS ORDERED: IODIXANOL 320 MG/ML 100 ML VIAL. ONE (12:00)
[2020-05-14] MEDS ORDERED: fentaNYL PF VIAL 100 MCG/2 ML VIAL ONE (12:18)
[2020-05-14] MEDS ORDERED: MIDAZOLAM HCL/PF 2 MG/2 ML VIAL. ONE (12:19)
--- NOTE | 2020-05-14 12:46 | CARD ---
MR#: [id number] Date of Study: 05/14/2020 Ordering Physician: SANGEETA PACE, Referring Physician: SANGEETA PACE, Tech: Romi Francisco RDCS APPROVED REPORT EXAM: LIMITED Two-dimensional echocardiogram Other Information Quality : Good INDICATION Acute Coronary Syndrome LEFT VENTRICLE Limited study for LV systolic function. The left ventricle is normal size. There is mild concentric l eft ventricular hypertrophy. The left ventricular systolic function is normal and the ejection fracti on is within normal range. The Ejection Fraction is 50-55%. There is normal LV segmental wall motion. PERICARDIAL EFFUSION There is no evidence of significant pericardial effusion. Critical Notification Critical Value: No <Conclusion> Limited study for LV systolic function. The left ventricle is normal size. The left ventricular systolic function is normal and the ejection fraction is within normal range. The Ejection Fraction is 50-55%. There is normal LV segmental wall motion. There is mild concentric left ventricular hypertrophy. Signed by : Jeff Goldsmith MD Electronically Approved : 05/14/2020 12:46:16
--- NOTE | 2020-05-14 12:48 | NUR ---
SS following for discharge planning. SS reviewed pt chart and discussed with pt RN. Pt is from home and is currently on room air. Pt having heart cath today. SS will continue to follow for discharge planning.
[2020-05-14] MEDS ORDERED: fentaNYL PF VIAL 100 MCG/2 ML VIAL IV ONE (13:00)
[2020-05-14] MEDS ORDERED: IODIXANOL 320 MG/ML 100 ML VIAL. IART ONE (13:00)
[2020-05-14] MEDS ORDERED: MIDAZOLAM HCL/PF 2 MG/2 ML VIAL. IV ONE (13:00)
[2020-05-14] MEDS ORDERED: CONTRAST GIVEN. MC PRN (13:00)
[2020-05-14] MEDS ORDERED: LIDOCAINE 1% Multi-Dose 20 ML VIAL. INJ ONE (13:00)
--- NOTE | 2020-05-14 13:30 | CARD ---
MR#: [id number] Date of Study: 05/14/2020 Ordering Physician: VIET BAINS, Referring Physician: VIET BAINS, Tech: Mercedes Wihtman APPROVED REPORT Technologist: Mercedes Whitman Nurse: Lina Wheeler R.N. Procedure(s) performed: fl time: 5.6 mins dose: 99 gycm2 contrast: 71 ml moderate sedation: 37 mins LHC, CORONARY ANGIOGRAPHY, BYPASS ANGIOGRAPHY HISTORY The patient is a 79 year-old male with a history of : coronary artery disease, tobacco history() , hy pertension, dyslipidemia. INDICATION The indication(s) include : non-STEMI . [facility] Clinical Frailty Scale [facility] Clinical Frailty Scale: Moderately Frail Heart Failure Heart Failure: Yes If Yes, Newly Diagnosed: No If Yes, HF Type: Diastolic If Yes, NYHA Class: Class II PROCEDURE NARRATIVE After explaining the risks and benefits of the procedure and alternatives, informed consent was obtai naa. The patient was brought electively to the cardiac catheterization lab in a fasting state. A nadira eout was performed confirming the patient's name, date of , procedure, and site of procedure. A ll necessary personnel were wearing the appropriate protective equipment and radiation monitor device s. (See nursing notes for medications administered). The right groin was sterilely prepped and drap ed in the usual fashion. The right groin was infiltrated with 10 mL of 2% lidocaine for subcutaneous anesthesia. A 6 F sheath was inserted into the right femoral artery without difficulty. Right and left coronary angiography was performed using a JR4, AR1 and JL4 catheters. Bypass angiograpy was per formed with JR4 and TAWNY catheter. Left ventricular end diastolic pressure was obtained with a pigtail catheter and pullback was performed. All catheter exchanges and advancements were performed over a guidewire. At case completion the right femoral sheath was removed and hemostasis was achieved with an Angioseal Device after limited femoral angiography confirmed adequate vessel size and anatomy. Th ere were no acute complications. HEMODYNAMICS: AO: 120/80 LVEDP 11 mm Hg No gradient on LV to aortic pullback. CORONARY ANGIOGRAPHY: LM is a large caliber vessel with normal angiographic appearance. LAD is a large caliber vessel with a proximal subtotal occlusion. Ramus is a moderate caliber vessel with normal angiographic appearance. LCx is a moderate caliber non-dominant vessel with proximal 50% stenosis. OM1 is a moderate caliber vessel with a proximal 95% stenosis. RCA is a large caliber dominant vessel with a 50% ISR of the proximal to mid overlapping stents, emeterio ot rule out stent fracture in the midsegment. RPDA is a moderate caliber vessels with normal angiographic appearance. BYPASS ANGIOGRAPHY: CERDA to LAD is widely patent without anastomotic stenosis. SVG to OM1 is patent without anastomotic stenosis. RCA graft is known occluded from cardiac cath in 2010 and not injected. Conclusion 1. Normal left sided filling pressures. 2. Three vessel coronary disease. 3. 2/3 grafts patent. Recommendations Likely Type 2 NSTEMI in the setting of cocaine use, continue aggressive medical therapy with BP contr ol. Signed by : Viet Bains, Electronically Approved : 05/14/2020 13:29:42
[2020-05-14] MEDS ORDERED: ATOR40TA59 PO (15:39)
== END 2020-05-14 18:44 | disposition home or self-care (01) | DRG 280 ==
LOC: ER 09:27 → 2 NORTH 10:36
PROVIDERS: ADMIT Family Medicine; ATTEND Family Medicine
PROC: 4A023N7 Measurement of Cardiac Sampling and Pressure, Left Heart, Percutaneous Approach (ICD-10-PCS; principal; 2020-05-14)
PROC: B2111ZZ Fluoroscopy of Multiple Coronary Arteries using Low Osmolar Contrast (ICD-10-PCS; 2020-05-14)
PROC: B2181ZZ Fluoroscopy of Left Internal Mammary Bypass Graft using Low Osmolar Contrast (ICD-10-PCS; 2020-05-14)
PROC: B2131ZZ Fluoroscopy of Multiple Coronary Artery Bypass Grafts using Low Osmolar Contrast (ICD-10-PCS; 2020-05-14)
PROC: B41F1ZZ Fluoroscopy of Right Lower Extremity Arteries using Low Osmolar Contrast (ICD-10-PCS; 2020-05-14)
DX: I21.4 Non-ST elevation (NSTEMI) myocardial infarction (principal); N17.0 Acute kidney failure with tubular necrosis; E78.5 Hyperlipidemia, unspecified; F14.10 Cocaine abuse, uncomplicated; I12.9 Hypertensive chronic kidney disease with stage 1 through stage 4 chronic kidney disease, or unspecified chronic kidney disease; I25.10 Atherosclerotic heart disease of native coronary artery without angina pectoris; K21.9 Gastro-esophageal reflux disease without esophagitis; M19.90 Unspecified osteoarthritis, unspecified site; F11.10 Opioid abuse, uncomplicated; N18.9 Chronic kidney disease, unspecified; Z82.49 Family history of ischemic heart disease and other diseases of the circulatory system; Z82.5 Family history of asthma and other chronic lower respiratory diseases; Z86.73 Personal history of transient ischemic attack (TIA), and cerebral infarction without residual deficits; Z87.891 Personal history of nicotine dependence; Z95.1 Presence of aortocoronary bypass graft; Z95.5 Presence of coronary angioplasty implant and graft
CPT/HCPCS: 93459; 96374; 96375; 99285; G0269; 36415; 71045; 80048; 80053; 80061; 80307; 83690; 83735; 83880; 84443; 84484; 85025; 85520; 85610; 85730; 93005; 93308; 99152; 99153; C1760; C1769; C1892; J1644; J2250; J2270; J2405; J3010; J3490; Q9967; C1771; G0378

== ENCOUNTER 2020-05-15 06:16 | Inpatient (IN) | payer MEDICARE, MEDICAID ==
[~2020-05-15] VITALS: Ht 180.3 cm; Wt 101.1 kg
[~2020-05-15 06:16] MED LIST changes: +ATOR40TA59 PO
[2020-05-15] MEDS ORDERED: IV NORMAL SALINE 1000ML BAG 1,000 ML IV ONE (06:30)
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
[2020-05-15] MEDS ORDERED: fentaNYL PF VIAL 100 MCG/2 ML VIAL IVP ONE (06:45)
--- NOTE | 2020-05-15 07:14 | RAD ---
PORTABLE CHEST 1V INDICATION: chest pain. COMPARISON STUDY: 05/13/2020. FINDINGS: Lungs: Normal lung volume. No pulmonary mass or consolidation. The tracheobronchial tree and hilar structures are normal. Pleura: No pleural effusion or pneumothorax. Heart and Mediastinum: Cardiomegaly. The great vessels of the thorax are normal. Median sternotomy. IMPRESSION: No focal airspace disease. Electronically signed by: Skinny Shah MD (05/15/2020 7:11 AM) [id number]
--- NOTE | 2020-05-15 07:18 | EKG ---
[facility] [address] [place] [address] Test Date: 2020-05-15 Test Time: 06:21:14 Pat Name: GLEN MENDEZ Department: Room: Gender: M Box Car [employer]: : 1940 Requested By: TAMARA EMMANUEL Order Number: [id number] Reading MD: Measurements Intervals [place] Rate: 66 P: 36 MN: 256 QRS: -61 QRSD: 90 T: 133 QT: 400 QTc: 421 Interpretive Statements SINUS RHYTHM ATRIAL PREMATURE COMPLEX(ES) PROLONGED MN INTERVAL ABNORMAL LEFT AXIS DEVIATION LVH WITH REPOLARIZATION ABNORMALITY QRS(T) CONTOUR ABNORMALITY CONSIDER ANTEROSEPTAL MYOCARDIAL DAMAGE CONSISTENT WITH INFERIOR INFARCT PROBABLY OLD ABNORMAL ECG RI6.02 No previous ECG available for comparison
[2020-05-15 10:03] LABS: BASO % 1 % (0-3); EOS % 1 % (0-3); HEMATOCRIT 44.7 % (39.0-53.0); LYMPH % 15 % (24-48); MEAN CORPUSCULAR HEMOGLOBIN 29 pg (25-35); MEAN CORPUSCULAR HGB CONC 34 g/dL (31-37); MEAN CORPUSCULAR VOLUME 85 fL (79-100); MONO # 0.6 x10^3/uL (0.0-1.1); MONO % 8 % (0-9); NEUT # 5.3 x10^3/uL (1.8-7.7); NEUT % 76 % (31-73); PLATELET COUNT 152 x10^3/uL (140-400); RED BLOOD COUNT 5.24 x10^6/uL (4.30-5.70); RED CELL DISTRIBUTION WIDTH 12.9 % (11.5-14.5)
[2020-05-15 10:15] LABS: PROTHROMBIN TIME PATIENT 14.3 SEC (11.7-14.0)
[2020-05-15 10:20] LABS: CALCIUM 8.5 mg/dL (8.5-10.1); CREATININE 1.5 mg/dL (0.7-1.3); GFR 54.6; POTASSIUM 4.2 mmol/L (3.5-5.1)
[2020-05-15 10:26] LABS: ALBUMIN/GLOBULIN RATIO 0.8 (1.0-1.7); MAGNESIUM 2.2 mg/dL (1.8-2.4); TOTAL BILIRUBIN 0.5 mg/dL (0.2-1.0); TOTAL PROTEIN 6.7 g/dL (6.4-8.2)
[2020-05-15 10:32] LABS: BILIRUBIN,URINE NEGATIVE (NEG); CLARITY,URINE CLEAR; COLOR,URINE YELLOW; NITRITE,URINE NEGATIVE (NEG); PROTEIN,URINE NEGATIVE (NEG-TRACE)
[2020-05-15 10:41] LABS: BARBITURATES NEG (NEG); BENZODIAZEPINES POS (NEG); CANNABINOIDS NEG (NEG); COCAINE POS (NEG); METHADONE NEG (NEG); OPIATES POS (NEG); PHENCYCLIDINE NEG (NEG)
[2020-05-15 10:42] LABS: AMPHETAMINE/METHAMPHETAMINE NEG (NEG)
[2020-05-15 10:44] LABS: BACTERIA,URINE MANY /HPF (0-FEW)
[2020-05-15 10:45] LABS: RBC,URINE OCC /HPF (0-2); SQUAMOUS EPITHELIAL CELL,UR OCC /LPF
[2020-05-15] MEDS ORDERED: cefTRIAXone IV Push 1 GM VIAL. IVP ONE (11:00)
--- NOTE | 2020-05-15 11:04 | PDOC ---
CARDIO Progress Notes Date and Time Date of Service 05/15/2020 Time of Evaluation 1330 Subjective Subjective: No Chest Pain, No shortness of breath, No Palpitations, Other (chest pain better after fentanyl) Vitals Vitals Vital Signs Date Time Temp Pulse Resp B/P (MAP) Pulse Ox O2 Delivery O2 Flow Rate FiO2 05/15/20 07:12 16 05/15/20 06:20 97.5 64 144/68 (93) 95 Room Air 97.5 Weight Weight [ ] Laboratory Labs Laboratory Tests Test 05/15/20 09:50 05/15/20 10:22 White Blood Count 7.0 x10^3/uL (4.0-11.0) Red Blood Count 5.24 x10^6/uL (4.30-5.70) Hemoglobin 15.0 g/dL (13.0-17.5) Hematocrit 44.7 % (39.0-53.0) Mean Corpuscular Volume 85 fL (79-100) Mean Corpuscular Hemoglobin 29 pg (25-35) Mean Corpuscular Hemoglobin Concent 34 g/dL (31-37) Red Cell Distribution Width 12.9 % (11.5-14.5) Platelet Count 152 x10^3/uL (140-400) Neutrophils (%) (Auto) 76 % (31-73) Lymphocytes (%) (Auto) 15 % (24-48) Monocytes (%) (Auto) 8 % (0-9) Eosinophils (%) (Auto) 1 % (0-3) Basophils (%) (Auto) 1 % (0-3) Neutrophils # (Auto) 5.3 x10^3/uL (1.8-7.7) Lymphocytes # (Auto) 1.0 x10^3/uL (1.0-4.8) Monocytes # (Auto) 0.6 x10^3/uL (0.0-1.1) Eosinophils # (Auto) 0.0 x10^3/uL (0.0-0.7) Basophils # (Auto) 0.0 x10^3/uL (0.0-0.2) Prothrombin Time 14.3 SEC (11.7-14.0) Prothromb Time International Ratio 1.2 (0.8-1.1) Activated Partial Thromboplast Time 28 SEC (24-38) Sodium Level 140 mmol/L (136-145) Potassium Level 4.2 mmol/L (3.5-5.1) Chloride Level 107 mmol/L (98-107) Carbon Dioxide Level 27 mmol/L (21-32) Anion Gap 6 (6-14) Blood Urea Nitrogen 20 mg/dL (8-26) Creatinine 1.5 mg/dL (0.7-1.3) Estimated GFR (Cockcroft-Gault) 54.6 BUN/Creatinine Ratio 13 (6-20) Glucose Level 100 mg/dL (70-99) Calcium Level 8.5 mg/dL (8.5-10.1) Magnesium Level 2.2 mg/dL (1.8-2.4) Total Bilirubin 0.5 mg/dL (0.2-1.0) Aspartate Amino Transf (AST/SGOT) 39 U/L (15-37) Alanine Aminotransferase (ALT/SGPT) 23 U/L (16-63) Alkaline Phosphatase 192 U/L (46-116) Troponin I Quantitative 6.404 ng/mL (0.000-0.055) EG-Lxi-G-Type Natriuretic Peptide 435 pg/mL (0-449) Total Protein 6.7 g/dL (6.4-8.2) Albumin 3.0 g/dL (3.4-5.0) Albumin/Globulin Ratio 0.8 (1.0-1.7) Lipase 137 U/L (73-393) Urine Collection Type Void Urine Color Yellow Urine Clarity Clear Urine pH 6.0 (<5.0-8.0) Urine Specific [place] 1.015 (1.000-1.030) Urine Protein Negative mg/dL (NEG-TRACE) Urine Glucose (UA) Negative mg/dL (NEG) Urine Ketones (Stick) Negative mg/dL (NEG) Urine Blood Negative (NEG) Urine Nitrite Negative (NEG) Urine Bilirubin Negative (NEG) Urine Urobilinogen Dipstick 1.0 mg/dL (0.2 mg/dL) Urine Leukocyte Esterase Moderate (NEG) Urine RBC Occ /HPF (0-2) Urine WBC 11-20 /HPF (0-4) Urine Squamous Epithelial Cells Occ /LPF Urine Bacteria Many /HPF (0-FEW) Urine Opiates Screen Pos (NEG) Urine Methadone Screen Neg (NEG) Urine Barbiturates Neg (NEG) Urine Phencyclidine Screen Neg (NEG) Urine Amphetamine/Methamphetamine Neg (NEG) Urine Benzodiazepines Screen Pos (NEG) Urine Cocaine Screen Pos (NEG) Urine Cannabinoids Screen Neg (NEG) Urine Ethyl Alcohol Neg (NEG) Physical Exam HEENT: Neck Supple W Full Motion Chest: Symmetric LUNGS: Clear to Auscultation Heart: S1S2, RRR (SR) Abdomen: Soft N/T Extremities: No Calf Tenderness Neurology: alert, oriented, follow commands Assessment Assessment 1. Chest pain: Recent NSTEMI with peaked troponin at 27 likely from vasopasm with underlying CAD and cocaine use. Trop now 6.4 and EKG with no acute changes by comparison 2. CAD s/p CABG [facility] 05/14/2020 revealed 3VD with 2/3 grafts patent, no intervenable lesion EF and WM nml 3. Accelerated hypertension: labile episodes 4. 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 Substance abuse; Cocaine/marijuana use. Used cocaine 2 nights ago 7. Tobaccoism 8. UTI: per PCP Recommendations 1. Pt was discharged yesterday and came back again with chest pain although this time it is atypical noting as sharp in consistency. Being admitted for obs. Denies SOA and did not use any cocaine last night. Significant lifestyle modification including cessation of cocaine 2. Continue ASA, statin and lisinopril 3. Unable to place on BB currently due to cocaine use but will consider if pt would stop cocaine and encourage cardiology follow up. Start on imdur 4. Follow up with Dr. Goldsmith on June 08Monday. 1:30 PM Justicifation of Admission Dx: Justifications for Admission: Justification of Admission Dx: Yes SD: Acute NSTEMI TREVOR CHAVARRIA APRN May 15, 2020 11:04
[2020-05-15] MEDS ORDERED: fentaNYL PF VIAL 100 MCG/2 ML VIAL IV PRN (11:15)
[2020-05-15] MEDS ORDERED: ONDANSETRON PF 4 MG/2 ML VIAL. IV PRN (11:15)
[2020-05-15] MEDS: ISOSORBIDE MONONITRATE ER 30 MG TAB.ER.24H PO SCH (11:39)
[2020-05-15 12:36] VITALS: BP 131/61
[2020-05-15 14:59] VITALS: BP 104/56
[2020-05-15 19:40] VITALS: BP 175/71
[2020-05-15] MEDS: ACETAMINOPHEN 325 MG TABLET. PO PRN (22:14)
[2020-05-15] MEDS: ATORVASTATIN CALCIUM 40 MG TABLET. PO SCH (22:14)
[2020-05-15 23:20] VITALS: BP 145/69
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
[2020-05-16 03:20] VITALS: BP 137/67
[2020-05-16 07:00] VITALS: BP 132/62
[2020-05-16] MEDS: LACTOBACILLUS RHAMNOSUS GG 1 CAPSULE. PO SCH ×2 (09:24→21:57)
[2020-05-16] MEDS: ISOSORBIDE MONONITRATE ER 30 MG TAB.ER.24H PO SCH (09:25)
[2020-05-16] MEDS: amLODIPine BESYLATE 10 MG TABLET PO SCH (09:25)
[2020-05-16] MEDS: LISINOPRIL 20 MG TABLET PO SCH (09:25)
[2020-05-16] MEDS: cefTRIAXone IV Push 1 GM VIAL. IVP SCH (09:26)
--- NOTE | 2020-05-16 10:10 | PDOC ---
[employer] PROGRESS NOTE Date of Service DOS: DATE: 05/16/20 TIME: 10:08 Chief Complaint Chief Complaint Chest pain, Angina, UTI History of Present Illness History of Present Illness 05/16/2020 Patient seen and examined Patient was resting with NAD Discussed with RN Reviewed chart Tox screen was positive for opiates, benzos, cocaine Ordered SNU eval - patient prefers [facility] Ordered doxycycline 100 po BID for testicular pain (suspect epididymitis) Cath was neg on 05/13/2020 and was discharged on 05/14/2020 but has returned 05/15/2020 Patient has hx of cocaine/marijuana use, CABG 2004 Vitals/I&O Vitals/I&O: Vital Signs Date Time Temp Pulse Resp B/P (MAP) Pulse Ox O2 Delivery O2 Flow Rate FiO2 05/16/20 09:25 65 137/67 05/16/20 07:00 98.3 20 97 Room Air 98.3 I & O 05/15/20 05/15/20 05/16/20 15:00 23:00 07:00 Intake Total 1000 ml 520 ml Output Total 0 ml 200 ml Balance 1000 ml 0 ml 320 ml Physical Exam General: Cooperative, No acute distress Heart: Regular rate Lungs: Clear Abdomen: Soft, No tenderness Extremities: No cyanosis Skin: No breakdown Labs Labs: Laboratory Tests Test 05/15/20 10:22 Urine Collection Type Void Urine Color Yellow Urine Clarity Clear Urine pH 6.0 (<5.0-8.0) Urine Specific [place] 1.015 (1.000-1.030) Urine Protein Negative mg/dL (NEG-TRACE) Urine Glucose (UA) Negative mg/dL (NEG) Urine Ketones (Stick) Negative mg/dL (NEG) Urine Blood Negative (NEG) Urine Nitrite Negative (NEG) Urine Bilirubin Negative (NEG) Urine Urobilinogen Dipstick 1.0 mg/dL (0.2 mg/dL) Urine Leukocyte Esterase Moderate (NEG) Urine RBC Occ /HPF (0-2) Urine WBC 11-20 /HPF (0-4) Urine Squamous Epithelial Cells Occ /LPF Urine Bacteria Many /HPF (0-FEW) Urine Opiates Screen Pos (NEG) Urine Methadone Screen Neg (NEG) Urine Barbiturates Neg (NEG) Urine Phencyclidine Screen Neg (NEG) Urine Amphetamine/Methamphetamine Neg (NEG) Urine Benzodiazepines Screen Pos (NEG) Urine Cocaine Screen Pos (NEG) Urine Cannabinoids Screen Neg (NEG) Urine Ethyl Alcohol Neg (NEG) Review of Systems Review of Systems: C/o testicular pain Denies weakness Assessment and Plan Assessmemt and Plan Problems Medical Problems: (1) Angina at rest Status: Acute (2) Urinary tract infection Status: Acute ASSESSMENT Angina at rest UTI Testicular pain - suspect epididymitis CAD - CABG 2004 Hx of cocaine/marijuana use PLAN: Continue rocephin and doxycycline Trend labs PT/OT Home meds DVT prophylaxis Cardiac Monitoring Serial enzymes, serial EKGs Consult Cardiology Ordered SNU eval - patient prefers [facility] DNR Comment Review of Relevant I have reviewed the following items stormy (where applicable) has been applied. Medications: Current Medications Medications (Trade) Dose Ordered Sig/[place] Route PRN Reason Start Time Stop Time Status Last Admin Dose Admin Ceftriaxone Sodium (Rocephin) 1 gm 1X ONCE IVP 05/15/20 11:00 05/15/20 11:01 DC 05/15/20 12:00 Isosorbide Mononitrate (Imdur) 30 mg DAILY PO 05/15/20 11:30 05/16/20 09:25 Ondansetron HCl (Zofran) 4 mg PRN Q8HRS PRN IV NAUSEA/VOMITING 05/15/20 11:15 05/16/20 11:14 05/15/20 11:44 Fentanyl Citrate (Fentanyl 2ml Vial) 50 mcg PRN Q2HRS PRN IV PAIN 05/15/20 11:15 05/15/20 11:45 Acetaminophen (Tylenol) 650 mg PRN Q4HRS PRN PO TEMP OVER 100.4F OR MILD PAIN 05/15/20 15:45 05/15/20 22:14 Amlodipine Besylate (Norvasc) 10 mg DAILY PO 05/16/20 09:00 05/16/20 09:25 Atorvastatin Calcium (Lipitor) 40 mg HS PO 05/15/20 21:00 05/15/20 22:14 Lisinopril (Prinivil) 20 mg DAILY PO 05/16/20 09:00 05/16/20 09:25 Ceftriaxone Sodium (Rocephin) 1 gm Q24H IVP 05/16/20 09:00 05/16/20 09:26 Lactobacillus Rhamnosus (Culturelle) 1 cap BID PO 05/16/20 09:00 05/16/20 09:24 Justifications for Admission Other Justification LORIE CARBAJAL III DO May 16, 2020 10:10
[2020-05-16 11:00] VITALS: BP 132/57
[2020-05-16] MEDS: DOXYCYCLINE HYCLATE 100 MG TABLET PO SCH ×2 (12:15→21:57)
[2020-05-16 15:00] VITALS: BP 161/66
[2020-05-16] MEDS: ACETAMINOPHEN 325 MG TABLET. PO PRN ×2 (17:13→21:57)
[2020-05-16 19:15] VITALS: BP 113/53
[2020-05-16] MEDS: ATORVASTATIN CALCIUM 40 MG TABLET. PO SCH (21:57)
[2020-05-16 23:30] VITALS: BP 124/67
[2020-05-17 04:40] VITALS: BP 170/78
[2020-05-17 07:00] VITALS: BP 153/67
[2020-05-17] MEDS: amLODIPine BESYLATE 10 MG TABLET PO SCH (09:24)
[2020-05-17] MEDS: DOXYCYCLINE HYCLATE 100 MG TABLET PO SCH ×2 (09:24→20:48)
[2020-05-17] MEDS: LISINOPRIL 20 MG TABLET PO SCH (09:24)
[2020-05-17] MEDS: LACTOBACILLUS RHAMNOSUS GG 1 CAPSULE. PO SCH ×2 (09:24→20:48)
[2020-05-17] MEDS: ISOSORBIDE MONONITRATE ER 30 MG TAB.ER.24H PO SCH (09:25)
[2020-05-17] MEDS: cefTRIAXone IV Push 1 GM VIAL. IVP SCH (09:25)
--- NOTE | 2020-05-17 09:59 | PDOC ---
[employer] PROGRESS NOTE Date of Service DOS: DATE: 05/17/20 TIME: 09:50 Chief Complaint Chief Complaint Chest pain, Angina, UTI History of Present Illness History of Present Illness 05/17/2020 Patient seen and examined Patient was sitting with NAD Discussed with RN Reviewed chart Await SNU evaluation Ordered DVT prophylaxis 05/16/2020 Patient seen and examined Patient was resting with NAD Discussed with RN Reviewed chart Tox screen was positive for opiates, benzos, cocaine Ordered SNU eval - patient preferskylar Bright Ordered doxycycline 100 po BID for testicular pain (suspect epididymitis) Cath was neg on Mon05/13/2020 and was discharged on 05/14/2020 but has returned 05/15/2020 Patient has hx of cocaine/marijuana use, CABG 2004 Vitals/I&O Vitals/I&O: Vital Signs Date Time Temp Pulse Resp B/P (MAP) Pulse Ox O2 Delivery O2 Flow Rate FiO2 05/17/20 09:25 76 153/67 05/17/20 07:00 98.6 17 99 Room Air 98.6 I & O 05/16/20 05/16/20 05/17/20 15:00 23:00 07:00 Intake Total 400 ml 550 ml 560 ml Output Total 850 ml 150 ml Balance -450 ml 400 ml 560 ml Physical Exam General: Alert, No acute distress Heart: Regular rate Lungs: Clear Abdomen: Soft, No tenderness Extremities: No cyanosis Skin: No breakdown Review of Systems Review of Systems: Denies pain Denies weakness Assessment and Plan Assessmemt and Plan Problems Medical Problems: (1) Angina at rest Status: Acute (2) Urinary tract infection Status: Acute ASSESSMENT Angina at rest Elevated troponin with recent cardiac cath 05/13/2020 UTI Testicular pain - suspect epididymitis 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 Medications: Current Medications Medications (Trade) Dose Ordered Sig/[place] Route PRN Reason Start Time Stop Time Status Last Admin Dose Admin Doxycycline Hyclate (Vibra-Tab) 100 mg BID PO 05/16/20 11:00 05/17/20 09:24 Justifications for Admission Other Justification LORIE CARBAJAL III DO May 17, 2020 09:59
[2020-05-17] MEDS: ENOXAPARIN 40 MG/0.4 ML SYRINGE. SQ SCH (10:00)
[2020-05-17 11:00] VITALS: BP 157/69
[2020-05-17 15:00] VITALS: BP 156/63
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
[2020-05-17 19:17] VITALS: BP 156/69
[2020-05-17] MEDS: ATORVASTATIN CALCIUM 40 MG TABLET. PO SCH (20:48)
[2020-05-17 22:25] VITALS: BP 162/71
[2020-05-17] MEDS: ACETAMINOPHEN 325 MG TABLET. PO PRN (22:27)
[2020-05-18 03:24] VITALS: BP 156/72
[2020-05-18 07:00] VITALS: BP 129/54
[2020-05-18] MEDS: LACTOBACILLUS RHAMNOSUS GG 1 CAPSULE. PO SCH ×2 (09:09→20:48)
[2020-05-18] MEDS: amLODIPine BESYLATE 10 MG TABLET PO SCH (09:10)
[2020-05-18] MEDS: ISOSORBIDE MONONITRATE ER 30 MG TAB.ER.24H PO SCH (09:10)
[2020-05-18] MEDS: LISINOPRIL 20 MG TABLET PO SCH (09:10)
[2020-05-18] MEDS: DOXYCYCLINE HYCLATE 100 MG TABLET PO SCH ×2 (09:10→20:48)
[2020-05-18] MEDS: cefTRIAXone IV Push 1 GM VIAL. IVP SCH (09:13)
[2020-05-18] MEDS: ENOXAPARIN 40 MG/0.4 ML SYRINGE. SQ SCH (10:00)
[2020-05-18 11:24] VITALS: BP 141/66
--- NOTE | 2020-05-18 14:54 | PDOC ---
PROGRESS NOTES Date of Service: DATE: 05/18/20 TIME: 14:52 Chief Complaint Chief Complaint Chest pain, Angina at rest Elevated troponin with recent cardiac cath 05/13/2020 UTI Testicular pain - suspect epididymitis CAD - CABG 2004 Hx of cocaine/marijuana use PLAN: Continue rocephin Continue doxycycline Trend labs PT/OT Home meds DVT prophylaxis Cardiac Monitoring Serial enzymes, serial EKGs Appreciate cardiology evaluation Await SNU eval - patient preferskylar Bright referrals have been sent awaiting for bed DNR History of Present Illness History of Present Illness 05/18/2020 no acute events reported overnight, case discussed with nursing staff patient in no acute distress no complaints during my visit Case management to help with discharge planning Waiting for bed placement 05/17/2020 Patient seen and examined Patient was sitting with NAD Discussed with RN Reviewed chart Await SNU evaluation Ordered DVT prophylaxis 05/16/2020 Patient seen and examined Patient was resting with NAD Discussed with RN Reviewed chart Tox screen was positive for opiates, benzos, cocaine Ordered SNU eval - patient preferskylar Bright Ordered doxycycline 100 po BID for testicular pain (suspect epididymitis) Cath was neg on Mon05/13/2020 and was discharged on 05/14/2020 but has returned 05/15/2020 Patient has hx of cocaine/marijuana use, CABG 2004 Vitals Vitals Vital Signs Date Time Temp Pulse Resp B/P (MAP) Pulse Ox O2 Delivery O2 Flow Rate FiO2 05/18/20 11:24 97.6 77 16 141/66 (91) 96 Room Air 97.6 Physical Exam General: Alert, No acute distress Heart: Regular rate Lungs: Clear Abdomen: Soft, No tenderness Extremities: No cyanosis Skin: No breakdown Assessment and Plan Assessmemt and Plan Problems Medical Problems: (1) Angina at rest Status: Acute (2) Urinary tract infection Status: Acute Comment Review of Relevant I have reviewed the following items stormy (where applicable) has been applied. Labs Microbiology 05/15/20 Urine Culture - Final, Complete Medications Current Medications Sodium Chloride 1,000 ml @ 1,000 mls/hr 1X ONCE IV Last administered on 05/15/20at 07:13; Start 05/15/20 at 06:30; Stop 05/15/20 at 07:29; Status DC Fentanyl Citrate (Fentanyl 2ml Vial) 50 mcg 1X ONCE IVP Last administered on 05/15/20at 07:12; Start 05/15/20 at 06:45; Stop 05/15/20 at 06:46; Status DC Ceftriaxone Sodium (Rocephin) 1 gm 1X ONCE IVP Last administered on 05/15/20at 12:00; Start 05/15/20 at 11:00; Stop 05/15/20 at 11:01; Status DC Isosorbide Mononitrate (Imdur) 30 mg DAILY PO Last administered on 05/18/20 09:10; Start 05/15/20 at 11:30 Ondansetron HCl (Zofran) 4 mg PRN Q8HRS PRN IV NAUSEA/VOMITING Last administered on 05/15/20 11:44; Start 05/15/20 at 11:15; Stop 05/16/20 at 11:14; Status DC Fentanyl Citrate (Fentanyl 2ml Vial) 50 mcg PRN Q2HRS PRN IV PAIN Last administered on 05/15/20at 11:45; Start 05/15/20 at 11:15 Acetaminophen (Tylenol) 650 mg PRN Q4HRS PRN PO TEMP OVER 100.4F OR MILD PAIN Last administered on 05/17/20 22:27; Start 05/15/20 at 15:45 Amlodipine Besylate (Norvasc) 10 mg DAILY PO Last administered on 05/18/20 09:10; Start 05/16/20 at 09:00 Atorvastatin Calcium (Lipitor) 40 mg HS PO Last administered on 05/17/20at 20:48; Start 05/15/20 at 21:00 Lisinopril (Prinivil) 20 mg DAILY PO Last administered on 05/18/20 09:10; Start 05/16/20 at 09:00 Ceftriaxone Sodium (Rocephin) 1 gm Q24H IVP Last administered on 05/18/20 09:13; Start 05/16/20 at 09:00 Lactobacillus Rhamnosus (Culturelle) 1 cap BID PO Last administered on 05/18/20 09:09; Start 05/16/20 at 09:00 Doxycycline Hyclate (Vibra-Tab) 100 mg BID PO Last administered on 05/18/20 09:10; Start 05/16/20 at 11:00 Enoxaparin Sodium (Lovenox 40mg Syringe) 40 mg Q24H SQ ; Start 05/17/20 at 10:00 Active Scripts Active [COVID 19 test] Proair Hfa Inhaler (Albuterol Sulfate) 8.5 Gm Hfa.aer.ad 2 Puff IH PRN Q4-6HRS PRN 21 Days Tessalon Perle (Benzonatate) 100 Mg Capsule 1 Cap PO TID Zofran (Ondansetron Hcl) 4 Mg Tablet 1 Tab PO PRN Q6-8HRS Dok (Docusate Sodium) 100 Mg Capsule 100 Mg PO PRN BID PRN 30 Days Mag-Al Plus Xs Suspension (Mag Hydrox/Al Hydrox/Simeth) 30 Ml Oral.susp 30 Ml PO PRN DAILY PRN 10 Days Guaifenesin 100 Mg/5 Ml Liquid 200 Mg PO PRN Q4HRS PRN 10 Days Tylenol (Acetaminophen) 325 Mg Tablet 650 Mg PO PRN Q4HRS PRN 30 Days Lisinopril 40 Mg Tablet 20 Mg PO DAILY 30 Days Proair Hfa (Albuterol Sulfate) 8.5 Gm Hfa.aer.ad 2.5 Mg NEB PRN Q4HRS PRN 30 Days Reported Atorvastatin Calcium 40 Mg Tablet 40 Mg PO HS Amlodipine Besylate 10 Mg Tablet 10 Mg PO DAILY Vitals/I & O Vital Sign - Last 24 Hours 05/17/20 05/17/20 05/17/20 05/17/20 15:00 19:17 20:00 22:25 Temp 98.4 97.8 98.6 98.4 97.8 98.6 Pulse 64 63 61 Resp 20 16 16 B/P (MAP) 156/63 (94) 156/69 (98) 162/71 (101) Pulse Ox 96 95 96 O2 Delivery Room Air Room Air Room Air Room Air 05/18/20 05/18/20 05/18/20 05/18/20 03:24 07:00 08:00 09:10 Temp 97.8 98.8 97.8 98.8 Pulse 63 60 60 Resp 16 16 B/P (MAP) 156/72 (100) 129/54 (79) 129/54 Pulse Ox 95 98 O2 Delivery Room Air Room Air Room Air 05/18/20 05/18/20 05/18/20 09:10 09:10 11:24 Temp 97.6 97.6 Pulse 60 60 77 Resp 16 B/P (MAP) 129/54 129/54 141/66 (91) Pulse Ox 96 O2 Delivery Room Air Intake and Output 05/17/20 05/17/20 05/18/20 15:00 23:00 07:00 Intake Total 550 ml 640 ml 300 ml Output Total 275 ml Balance 550 ml 365 ml 300 ml Justicifation of Admission Dx: Justifications for Admission: Justification of Admission Dx: Yes NIDHI RAYMOND MD May 18, 2020 14:54
[2020-05-18 15:29] VITALS: BP 154/61
[2020-05-18] MEDS ORDERED: NITROGLYCERIN SUBLINGUAL 0.4 MG BOTTLE OF 25. SL PRN (18:45)
[2020-05-18 19:55] VITALS: BP 145/69
[2020-05-18] MEDS: ATORVASTATIN CALCIUM 40 MG TABLET. PO SCH (20:48)
[2020-05-18] MEDS: ACETAMINOPHEN 325 MG TABLET. PO PRN (20:48)
[2020-05-18 22:44] VITALS: BP 140/48
[2020-05-19 02:38] VITALS: BP 153/58
[2020-05-19 07:17] VITALS: BP 166/77
[2020-05-19] MEDS: cefTRIAXone IV Push 1 GM VIAL. IVP SCH (08:49)
[2020-05-19] MEDS: LISINOPRIL 20 MG TABLET PO SCH (08:51)
[2020-05-19] MEDS: DOXYCYCLINE HYCLATE 100 MG TABLET PO SCH (08:51)
[2020-05-19] MEDS: amLODIPine BESYLATE 10 MG TABLET PO SCH (08:51)
[2020-05-19] MEDS: LACTOBACILLUS RHAMNOSUS GG 1 CAPSULE. PO SCH (08:51)
[2020-05-19] MEDS: ISOSORBIDE MONONITRATE ER 30 MG TAB.ER.24H PO SCH (08:51)
[2020-05-19] MEDS: ENOXAPARIN 40 MG/0.4 ML SYRINGE. SQ SCH (08:54)
[2020-05-19 10:09] LABS: BASO % 1 % (0-3); EOS # 0.2 x10^3/uL (0.0-0.7); EOS % 4 % (0-3); HEMATOCRIT 47.3 % (39.0-53.0); HEMOGLOBIN 15.7 g/dL (13.0-17.5); LYMPH # 1.5 x10^3/uL (1.0-4.8); LYMPH % 28 % (24-48); MEAN CORPUSCULAR HEMOGLOBIN 29 pg (25-35); MEAN CORPUSCULAR HGB CONC 33 g/dL (31-37); MEAN CORPUSCULAR VOLUME 87 fL (79-100); MONO # 0.5 x10^3/uL (0.0-1.1); MONO % 10 % (0-9); NEUT # 3.1 x10^3/uL (1.8-7.7); NEUT % 57 % (31-73); PLATELET COUNT 173 x10^3/uL (140-400); RED BLOOD COUNT 5.47 x10^6/uL (4.30-5.70); RED CELL DISTRIBUTION WIDTH 12.9 % (11.5-14.5); WHITE BLOOD COUNT 5.4 x10^3/uL (4.0-11.0)
[2020-05-19 10:27] LABS: CREATININE 1.6 mg/dL (0.7-1.3); GFR 50.7; POTASSIUM 4.4 mmol/L (3.5-5.1)
[2020-05-19 10:28] VITALS: BP 167/68
--- NOTE | 2020-05-19 11:18 | NUR ---
SS following for discharge planning. SS reviewed pt chart and discussed with pt RN. Pt is from home and is currently on room air. PT/OT recommending alf unit. Pt requesting to go to [facility], ; fax [phone], skilled rehabilitation to LTC placement. CARE assessment completed. SS phoned and faxed referral to [facility]. COVID19 test requested for placement. SS will continue to follow for discharge planning.
--- NOTE | 2020-05-19 11:23 | PDOC ---
PROGRESS NOTES Date of Service: DATE: 05/19/20 TIME: 11:22 Chief Complaint Chief Complaint Chest pain, ACS ruled out Angina at rest Elevated troponin with recent cardiac cath 05/13/2020 UTI Testicular pain - suspect epididymitis CAD - CABG 2004 Hx of cocaine/marijuana use PLAN: Continue wtih cefdinir due to intolerance to ceftriaxone Continue doxycycline Trend labs PT/OT Home meds DVT prophylaxis Cardiac Monitoring Serial enzymes, serial EKGs Appreciate cardiology evaluation Await SNU eval - patient eyad Bright referrals have been sent awaiting for bed DNR History of Present Illness History of Present Illness 05/19/2020 No acute events reported overnight, case discussed with nursing staff patient in no acute distress no complaints during my visit Awaiting for placement 05/18/2020 no acute events reported overnight, case discussed with nursing staff patient in no acute distress no complaints during my visit Case management to help with discharge planning Waiting for bed placement 05/17/2020 Patient seen and examined Patient was sitting with NAD Discussed with RN Reviewed chart Await SNU evaluation Ordered DVT prophylaxis 05/16/2020 Patient seen and examined Patient was resting with NAD Discussed with RN Reviewed chart Tox screen was positive for opiates, benzos, cocaine Ordered SNU eval - patient eyad Bright Ordered doxycycline 100 po BID for testicular pain (suspect epididymitis) Cath was neg on 05/13/2020 and was discharged on 05/14/2020 but has returned 05/15/2020 Patient has hx of cocaine/marijuana use, CABG 2004 Vitals Vitals Vital Signs Date Time Temp Pulse Resp B/P (MAP) Pulse Ox O2 Delivery O2 Flow Rate FiO2 05/19/20 10:28 98.2 65 16 167/68 (101) 97 Room Air 98.2 Physical Exam General: Alert, No acute distress Heart: Regular rate Lungs: Clear Abdomen: Soft, No tenderness Extremities: No cyanosis Skin: No breakdown Labs LABS Laboratory Tests Test 05/19/20 09:40 White Blood Count 5.4 x10^3/uL (4.0-11.0) Red Blood Count 5.47 x10^6/uL (4.30-5.70) Hemoglobin 15.7 g/dL (13.0-17.5) Hematocrit 47.3 % (39.0-53.0) Mean Corpuscular Volume 87 fL (79-100) Mean Corpuscular Hemoglobin 29 pg (25-35) Mean Corpuscular Hemoglobin Concent 33 g/dL (31-37) Red Cell Distribution Width 12.9 % (11.5-14.5) Platelet Count 173 x10^3/uL (140-400) Neutrophils (%) (Auto) 57 % (31-73) Lymphocytes (%) (Auto) 28 % (24-48) Monocytes (%) (Auto) 10 % (0-9) Eosinophils (%) (Auto) 4 % (0-3) Basophils (%) (Auto) 1 % (0-3) Neutrophils # (Auto) 3.1 x10^3/uL (1.8-7.7) Lymphocytes # (Auto) 1.5 x10^3/uL (1.0-4.8) Monocytes # (Auto) 0.5 x10^3/uL (0.0-1.1) Eosinophils # (Auto) 0.2 x10^3/uL (0.0-0.7) Basophils # (Auto) 0.0 x10^3/uL (0.0-0.2) Sodium Level 141 mmol/L (136-145) Potassium Level 4.4 mmol/L (3.5-5.1) Chloride Level 104 mmol/L (98-107) Carbon Dioxide Level 31 mmol/L (21-32) Anion Gap 6 (6-14) Blood Urea Nitrogen 14 mg/dL (8-26) Creatinine 1.6 mg/dL (0.7-1.3) Estimated GFR (Cockcroft-Gault) 50.7 Glucose Level 97 mg/dL (70-99) Calcium Level 9.0 mg/dL (8.5-10.1) Assessment and Plan Assessmemt and Plan Problems Medical Problems: (1) Angina at rest Status: Acute (2) Urinary tract infection Status: Acute Comment Review of Relevant I have reviewed the following items stormy (where applicable) has been applied. Labs Laboratory Tests Test 05/19/20 09:40 White Blood Count 5.4 x10^3/uL (4.0-11.0) Red Blood Count 5.47 x10^6/uL (4.30-5.70) Hemoglobin 15.7 g/dL (13.0-17.5) Hematocrit 47.3 % (39.0-53.0) Mean Corpuscular Volume 87 fL (79-100) Mean Corpuscular Hemoglobin 29 pg (25-35) Mean Corpuscular Hemoglobin Concent 33 g/dL (31-37) Red Cell Distribution Width 12.9 % (11.5-14.5) Platelet Count 173 x10^3/uL (140-400) Neutrophils (%) (Auto) 57 % (31-73) Lymphocytes (%) (Auto) 28 % (24-48) Monocytes (%) (Auto) 10 % (0-9) Eosinophils (%) (Auto) 4 % (0-3) Basophils (%) (Auto) 1 % (0-3) Neutrophils # (Auto) 3.1 x10^3/uL (1.8-7.7) Lymphocytes # (Auto) 1.5 x10^3/uL (1.0-4.8) Monocytes # (Auto) 0.5 x10^3/uL (0.0-1.1) Eosinophils # (Auto) 0.2 x10^3/uL (0.0-0.7) Basophils # (Auto) 0.0 x10^3/uL (0.0-0.2) Sodium Level 141 mmol/L (136-145) Potassium Level 4.4 mmol/L (3.5-5.1) Chloride Level 104 mmol/L (98-107) Carbon Dioxide Level 31 mmol/L (21-32) Anion Gap 6 (6-14) Blood Urea Nitrogen 14 mg/dL (8-26) Creatinine 1.6 mg/dL (0.7-1.3) Estimated GFR (Cockcroft-Gault) 50.7 Glucose Level 97 mg/dL (70-99) Calcium Level 9.0 mg/dL (8.5-10.1) Laboratory Tests Test 05/19/20 09:40 White Blood Count 5.4 x10^3/uL (4.0-11.0) Red Blood Count 5.47 x10^6/uL (4.30-5.70) Hemoglobin 15.7 g/dL (13.0-17.5) Hematocrit 47.3 % (39.0-53.0) Mean Corpuscular Volume 87 fL (79-100) Mean Corpuscular Hemoglobin 29 pg (25-35) Mean Corpuscular Hemoglobin Concent 33 g/dL (31-37) Red Cell Distribution Width 12.9 % (11.5-14.5) Platelet Count 173 x10^3/uL (140-400) Neutrophils (%) (Auto) 57 % (31-73) Lymphocytes (%) (Auto) 28 % (24-48) Monocytes (%) (Auto) 10 % (0-9) Eosinophils (%) (Auto) 4 % (0-3) Basophils (%) (Auto) 1 % (0-3) Neutrophils # (Auto) 3.1 x10^3/uL (1.8-7.7) Lymphocytes # (Auto) 1.5 x10^3/uL (1.0-4.8) Monocytes # (Auto) 0.5 x10^3/uL (0.0-1.1) Eosinophils # (Auto) 0.2 x10^3/uL (0.0-0.7) Basophils # (Auto) 0.0 x10^3/uL (0.0-0.2) Sodium Level 141 mmol/L (136-145) Potassium Level 4.4 mmol/L (3.5-5.1) Chloride Level 104 mmol/L (98-107) Carbon Dioxide Level 31 mmol/L (21-32) Anion Gap 6 (6-14) Blood Urea Nitrogen 14 mg/dL (8-26) Creatinine 1.6 mg/dL (0.7-1.3) Estimated GFR (Cockcroft-Gault) 50.7 Glucose Level 97 mg/dL (70-99) Calcium Level 9.0 mg/dL (8.5-10.1) Microbiology 05/15/20 Urine Culture - Final, Complete Medications Current Medications Sodium Chloride 1,000 ml @ 1,000 mls/hr 1X ONCE IV Last administered on 05/15/20at 07:13; Start 05/15/20 at 06:30; Stop 05/15/20 at 07:29; Status DC Fentanyl Citrate (Fentanyl 2ml Vial) 50 mcg 1X ONCE IVP Last administered on 05/15/20at 07:12; Start 05/15/20 at 06:45; Stop 05/15/20 at 06:46; Status DC Ceftriaxone Sodium (Rocephin) 1 gm 1X ONCE IVP Last administered on 05/15/20at 12:00; Start 05/15/20 at 11:00; Stop 05/15/20 at 11:01; Status DC Isosorbide Mononitrate (Imdur) 30 mg DAILY PO Last administered on 05/19/20 08:51; Start 05/15/20 at 11:30 Ondansetron HCl (Zofran) 4 mg PRN Q8HRS PRN IV NAUSEA/VOMITING Last administered on 05/15/20at 11:44; Start 05/15/20 at 11:15; Stop 05/16/20 at 11:14; Status DC Fentanyl Citrate (Fentanyl 2ml Vial) 50 mcg PRN Q2HRS PRN IV PAIN Last administered on 05/15/20 11:45; Start 05/15/20 at 11:15 Acetaminophen (Tylenol) 650 mg PRN Q4HRS PRN PO TEMP OVER 100.4F OR MILD PAIN Last administered on 05/18/20at 20:48; Start 05/15/20 at 15:45 Amlodipine Besylate (Norvasc) 10 mg DAILY PO Last administered on 05/19/20 08:51; Start 05/16/20 at 09:00 Atorvastatin Calcium (Lipitor) 40 mg HS PO Last administered on 05/18/20 20:48; Start 05/15/20 at 21:00 Lisinopril (Prinivil) 20 mg DAILY PO Last administered on 05/19/20 08:51; Start 05/16/20 at 09:00 Ceftriaxone Sodium (Rocephin) 1 gm Q24H IVP Last administered on 05/19/20 08: 49; Start 05/16/20 at 09:00; Stop 05/19/20 at 09:12; Status DC Lactobacillus Rhamnosus (Culturelle) 1 cap BID PO Last administered on 05/19/20 08:51; Start 05/16/20 at 09:00 Doxycycline Hyclate (Vibra-Tab) 100 mg BID PO Last administered on 05/19/20 08:51; Start 05/16/20 at 11:00 Enoxaparin Sodium (Lovenox 40mg Syringe) 40 mg Q24H SQ ; Start 05/17/20 at 10:00 Nitroglycerin (Nitrostat) 0.4 mg PRN Q5MIN PRN SL CHEST PAIN; Start 05/18/20 at 18:45 Cefdinir (Omnicef) 300 mg BID PO ; Start 05/19/20 at 21:00; Stop 05/25/20 at 12:00 Active Scripts Active [COVID 19 test] Proair Hfa Inhaler (Albuterol Sulfate) 8.5 Gm Hfa.aer.ad 2 Puff IH PRN Q4-6HRS PRN 21 Days Tessalon Perle (Benzonatate) 100 Mg Capsule 1 Cap PO TID Zofran (Ondansetron Hcl) 4 Mg Tablet 1 Tab PO PRN Q6-8HRS Dok (Docusate Sodium) 100 Mg Capsule 100 Mg PO PRN BID PRN 30 Days Mag-Al Plus Xs Suspension (Mag Hydrox/Al Hydrox/Simeth) 30 Ml Oral.susp 30 Ml PO PRN DAILY PRN 10 Days Guaifenesin 100 Mg/5 Ml Liquid 200 Mg PO PRN Q4HRS PRN 10 Days Tylenol (Acetaminophen) 325 Mg Tablet 650 Mg PO PRN Q4HRS PRN 30 Days Lisinopril 40 Mg Tablet 20 Mg PO DAILY 30 Days Proair Hfa (Albuterol Sulfate) 8.5 Gm Hfa.aer.ad 2.5 Mg NEB PRN Q4HRS PRN 30 Days Reported Atorvastatin Calcium 40 Mg Tablet 40 Mg PO HS Amlodipine Besylate 10 Mg Tablet 10 Mg PO DAILY Vitals/I & O Vital Sign - Last 24 Hours 05/18/20 05/18/20 05/18/20 05/18/20 11:24 15:29 19:50 19:55 Temp 97.6 97.7 98.0 97.6 97.7 98.0 Pulse 77 68 70 Resp 16 16 16 B/P (MAP) 141/66 (91) 154/61 (92) 145/69 (94) Pulse Ox 96 95 96 O2 Delivery Room Air Room Air Room Air Room Air 05/18/20 05/19/20 05/19/20 05/19/20 22:44 02:38 07:17 08:00 Temp 97.9 98.3 97.8 97.9 98.3 97.8 Pulse 58 57 69 Resp 16 16 16 B/P (MAP) 140/48 (78) 153/58 (89) 166/77 (106) Pulse Ox 97 96 98 O2 Delivery Room Air Room Air Room Air Room Air 05/19/20 05/19/20 05/19/20 05/19/20 08:51 08:51 08:51 10:28 Temp 98.2 98.2 Pulse 69 69 69 65 Resp 16 B/P (MAP) 166/77 166/77 166/77 167/68 (101) Pulse Ox 97 O2 Delivery Room Air Intake and Output 05/18/20 05/18/20 05/19/20 15:00 23:00 07:00 Intake Total 500 ml 650 ml 120 ml Balance 500 ml 650 ml 120 ml Justicifation of Admission Dx: Justifications for Admission: Justification of Admission Dx: Yes NIDHI RAYMOND MD May 19, 2020 11:23
--- NOTE | 2020-05-19 11:45 | NUR ---
SS following up with discharge planning. [facility] reported having no beds available at this time. SS met with pt and discussed. Pt reported not wanting to go to another facility. Pt reported that he wanted to go to nursing facility and wanted the ability to go an come as he pleases such as to the grocery store or out with friends. SS explained to pt that if he goes to facility he cannot go and come as he pleases. Pt reported that he was not going anywhere where he was locked up and could not come and go as he pleases. Pt reported that he would just go home. Pt's RN and physician notified. SS will continue to follow for discharge planning.
[2020-05-19] MEDS ORDERED: CEFD300C PO (11:51)
[2020-05-19] MEDS ORDERED: ISOS30TA4 PO (11:51)
[2020-05-19] MEDS ORDERED: NITR0.4T24 SL (11:51)
[2020-05-19] MEDS ORDERED: DOXY100T PO (11:51)
[2020-05-19] MEDS ORDERED: LACT1CAP19 PO (11:51)
--- NOTE | 2020-05-19 11:54 | PDOC3 ---
Discharge Summary Visit Information Date of Admission: May 15, 2020 Date of Discharge: May 19, 2020 Admitting Diagnosis Comment: Chest pain, rule out acute coronary syndrome. Final Diagnosis Problems Medical Problems: (1) Angina at rest Status: Acute (2) Urinary tract infection Status: Acute Chest pain, ACS ruled out Angina at rest Elevated troponin with recent cardiac cath 05/13/2020 UTI Testicular pain - suspect epididymitis CAD - CABG 2004 Hx of cocaine/marijuana use Brief Hospital Course Allergies Allergies Coded Allergies Type Severity Reaction Last Updated Verified No Known Drug Allergies 09/30/14 No Vital Signs Vital Signs Date Time Temp Pulse Resp B/P (MAP) Pulse Ox O2 Delivery O2 Flow Rate FiO2 05/19/20 10:28 98.2 65 16 167/68 (101) 97 Room Air 98.2 Lab Results Laboratory Tests Test 05/19/20 09:40 White Blood Count 5.4 x10^3/uL (4.0-11.0) Red Blood Count 5.47 x10^6/uL (4.30-5.70) Hemoglobin 15.7 g/dL (13.0-17.5) Hematocrit 47.3 % (39.0-53.0) Mean Corpuscular Volume 87 fL (79-100) Mean Corpuscular Hemoglobin 29 pg (25-35) Mean Corpuscular Hemoglobin Concent 33 g/dL (31-37) Red Cell Distribution Width 12.9 % (11.5-14.5) Platelet Count 173 x10^3/uL (140-400) Neutrophils (%) (Auto) 57 % (31-73) Lymphocytes (%) (Auto) 28 % (24-48) Monocytes (%) (Auto) 10 % (0-9) Eosinophils (%) (Auto) 4 % (0-3) Basophils (%) (Auto) 1 % (0-3) Neutrophils # (Auto) 3.1 x10^3/uL (1.8-7.7) Lymphocytes # (Auto) 1.5 x10^3/uL (1.0-4.8) Monocytes # (Auto) 0.5 x10^3/uL (0.0-1.1) Eosinophils # (Auto) 0.2 x10^3/uL (0.0-0.7) Basophils # (Auto) 0.0 x10^3/uL (0.0-0.2) Sodium Level 141 mmol/L (136-145) Potassium Level 4.4 mmol/L (3.5-5.1) Chloride Level 104 mmol/L (98-107) Carbon Dioxide Level 31 mmol/L (21-32) Anion Gap 6 (6-14) Blood Urea Nitrogen 14 mg/dL (8-26) Creatinine 1.6 mg/dL (0.7-1.3) Estimated GFR (Cockcroft-Gault) 50.7 Glucose Level 97 mg/dL (70-99) Calcium Level 9.0 mg/dL (8.5-10.1) Laboratory Tests Test 05/19/20 09:40 White Blood Count 5.4 x10^3/uL (4.0-11.0) Red Blood Count 5.47 x10^6/uL (4.30-5.70) Hemoglobin 15.7 g/dL (13.0-17.5) Hematocrit 47.3 % (39.0-53.0) Mean Corpuscular Volume 87 fL (79-100) Mean Corpuscular Hemoglobin 29 pg (25-35) Mean Corpuscular Hemoglobin Concent 33 g/dL (31-37) Red Cell Distribution Width 12.9 % (11.5-14.5) Platelet Count 173 x10^3/uL (140-400) Neutrophils (%) (Auto) 57 % (31-73) Lymphocytes (%) (Auto) 28 % (24-48) Monocytes (%) (Auto) 10 % (0-9) Eosinophils (%) (Auto) 4 % (0-3) Basophils (%) (Auto) 1 % (0-3) Neutrophils # (Auto) 3.1 x10^3/uL (1.8-7.7) Lymphocytes # (Auto) 1.5 x10^3/uL (1.0-4.8) Monocytes # (Auto) 0.5 x10^3/uL (0.0-1.1) Eosinophils # (Auto) 0.2 x10^3/uL (0.0-0.7) Basophils # (Auto) 0.0 x10^3/uL (0.0-0.2) Sodium Level 141 mmol/L (136-145) Potassium Level 4.4 mmol/L (3.5-5.1) Chloride Level 104 mmol/L (98-107) Carbon Dioxide Level 31 mmol/L (21-32) Anion Gap 6 (6-14) Blood Urea Nitrogen 14 mg/dL (8-26) Creatinine 1.6 mg/dL (0.7-1.3) Estimated GFR (Cockcroft-Gault) 50.7 Glucose Level 97 mg/dL (70-99) Calcium Level 9.0 mg/dL (8.5-10.1) Brief Hospital Course HISTORY OF PRESENT ILLNESS: The patient is a pleasant 79-year-old male who was just discharged a day or so ago. He despite 79-year-old consistently does cocaine, once again he presents with chest pain and he is cocaine positive, although he denies doing this again. I discussed the case with the ER physician. We are going to admit the patient and consult Cardiology. It should be noted the patient rates his pain at 9/10 with associated weakness. It has been occurring for several hours, it is worse with moving and better with sitting still. 05/19/2020 No acute events reported overnight, case discussed with nursing staff patient in no acute distress no complaints during my visit Awaiting for placement 05/18/2020 no acute events reported overnight, case discussed with nursing staff patient in no acute distress no complaints during my visit Case management to help with discharge planning Waiting for bed placement 05/17/2020 Patient seen and examined Patient was sitting with NAD Discussed with RN Reviewed chart Await SNU evaluation Ordered DVT prophylaxis 05/16/2020 Patient seen and examined Patient was resting with NAD Discussed with RN Reviewed chart Tox screen was positive for opiates, benzos, cocaine Ordered SNU eval - patient prefers [facility] Ordered doxycycline 100 po BID for testicular pain (suspect epididymitis) Cath was neg on Mon05/13/2020 and was discharged on 05/14/2020 but has returned 05/15/2020 Patient has hx of cocaine/marijuana use, CABG 2004 Since [facility] has no beds and patient was under the impression that he was going to be able to come and go [place] please once he went to a senior care facility the patient has decided at this point to be discharged home, he was quite upset since apparently he does not want to losing his independence. Drug abuse counseling has been done prior to discharge. Patient was hemodynamically stable and in no acute distress to be discharged home. He will continue with his antibiotics for suspected epididymitis with cefdinir and doxycycline p.o. Greater than 35 minutes were spent in the discharge process with the patient counseling coordination of care and arrangement for a safe discharge Discharge Information Condition at Discharge: Improved Follow Up: Weeks Disposition/Orders: D/C to Home Scheduled Amlodipine Besylate (Amlodipine Besylate) 10 Mg Tablet, 10 MG PO DAILY for HTN, (Reported) Entered as Reported by: ALICIA PORTER on 11/30/191826 Last Action: Continued on 05/15/20 154 by Jelani Bowen Atorvastatin Calcium (Atorvastatin Calcium) 40 Mg Tablet, 40 MG PO HS for FOR CHOLESTEROL, #30 Ref 0 (Reported) Entered as Reported by: AMALIA CHAVEZ RN on 05/14/20 153 Last Action: Continued on 05/15/201544 by Jelani Bowen Benzonatate (Tessalon Perle) 100 Mg Capsule, 1 CAP PO TID for cough, #21 Prescribed by: GRECIA ZURITA MD on 12/19/19 1548 Cefdinir (Cefdinir) 300 Mg Capsule, 300 MG PO BID for UTI for 5 Days, #10 Prescribed by: NIDHI RAYMOND MD on 05/19/20 1151 Doxycycline Hyclate (Doxycycline Hyclate) 100 Mg Tablet, 100 MG PO BID for epidimytis for 5 Days, #10 Prescribed by: NIDHI RAYMOND MD on 05/19/20 1151 Isosorbide Mononitrate (Isosorbide Mononitrate Er) 30 Mg Tab.er.24h, 30 MG PO DAILY for angina for 30 Days, #30 Prescribed by: NIDHI RAYMOND MD on 05/19/20 1151 Lactobacillus Rhamnosus Gg (Culturelle) 1 Each Cap.sprink, 1 CAP PO BID for probiotic for 30 Days, #60 Prescribed by: NIDHI RAYMOND MD on 05/19/20 1151 Lisinopril (Lisinopril) 40 Mg Tablet, 20 MG PO DAILY for BLOOD PRESSURE for 30 Days, #15 Prescribed by: NILTON HERNANDEZ MD on 12/04/19 1228 Last Action: Continued on 05/15/20 154 by Jelani Boewn Ondansetron Hcl (Zofran) 4 Mg Tablet, 1 TAB PO PRN Q6-8HRS for nausea, #12 Prescribed by: GRECIA ZURITA MD on 12/19/19 1548 Scheduled PRN Acetaminophen (Tylenol) 325 Mg Tablet, 650 MG PO PRN Q4HRS PRN for TEMP OVER 100.4F OR MILD PAIN for 30 Days, #60 Prescribed by: NILTON HERNANDEZ MD on 12/04/19 1228 Last Action: Continued on 05/15/20 1545 by Jelani Bowen Albuterol Sulfate (Proair Hfa) 8.5 Gm Hfa.aer.ad, 2.5 MG NEB PRN Q4HRS PRN for SHORTNESS OF BREATH for 30 Days, #1 Prescribed by: NILTON HERNANDEZ MD on 12/04/19 1228 Albuterol Sulfate (Proair Hfa Inhaler) 8.5 Gm Hfa.aer.ad, 2 PUFF IH PRN Q4-6HRS PRN for wheezing for 21 Days, #1 Ref 0 Prescribed by: GRECIA ZURITA MD on 12/19/19 1548 Docusate Sodium (Dok) 100 Mg Capsule, 100 MG PO PRN BID PRN for CONSTIPATION for 30 Days, #30 Prescribed by: NILTON HERNANDEZ MD on 12/04/19 1228 Guaifenesin (Guaifenesin) 100 Mg/5 Ml Liquid, 200 MG PO PRN Q4HRS PRN for COUGH for 10 Days, #120 Prescribed by: NILTON HERNANDEZ MD on 12/04/19 1228 Mag Hydrox/Al Hydrox/Simeth (Mag-Al Plus Xs Suspension) 30 Ml Oral.susp, 30 ML PO PRN DAILY PRN for HEARTBURN / GAS for 10 Days, #120 Prescribed by: NILTON HERNANDEZ MD on 12/04/19 1228 Nitroglycerin (Nitrostat) 0.4 Mg Tab.subl, 0.4 MG SL PRN Q5MIN PRN for CHEST PAIN for 30 Days, #25 Prescribed by: NIDHI RAYMOND MD on 05/19/20 1151 Miscellaneous Medications [COVID 19 test] Prescribed by: GRECIA ZURITA MD on 12/19/19 1549 Discontinued Medications Atorvastatin Calcium (Atorvastatin Calcium) 10 Mg Tablet, 10 MG PO HS for FOR CHOLESTEROL, #30 Ref 0 (Reported) Entered as Reported by: ALICIA PORTER on 11/30/191826 Pantoprazole Sodium (Pantoprazole Sodium ) 40 Mg Tablet.dr, 40 MG PO DAILYAC for GERD, (Reported) Entered as Reported by: ALICIA PORTER on 11/30/191826 Justicifation of Admission Dx: Justifications for Admission: Justification of Admission Dx: Yes NIDHI RAYMOND MD May 19, 2020 11:54
--- NOTE | 2020-05-19 14:00 | NUR ---
This RN escorted patient to bus at main entrance with his belongings, IVs taken out, and telemonitor off. Pt tolerated well. 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
[2020-05-19] MEDS ORDERED: CEFDINIR 300 MG CAPSULE PO SCH (21:00)
== END 2020-05-19 13:45 | disposition home or self-care (01) | DRG 281 ==
LOC: ER 06:16 → 2 NORTH 12:16 → OBSVTOIN 22:20
PROVIDERS: ADMIT Internal Medicine; ATTEND Internal Medicine
DX: I25.119 Atherosclerotic heart disease of native coronary artery with unspecified angina pectoris (principal); I21.4 Non-ST elevation (NSTEMI) myocardial infarction; N39.0 Urinary tract infection, site not specified; I25.10 Atherosclerotic heart disease of native coronary artery without angina pectoris; F14.10 Cocaine abuse, uncomplicated; N18.3 Chronic kidney disease, stage 3 (moderate); I12.9 Hypertensive chronic kidney disease with stage 1 through stage 4 chronic kidney disease, or unspecified chronic kidney disease; N45.1 Epididymitis; E78.5 Hyperlipidemia, unspecified; F12.90 Cannabis use, unspecified, uncomplicated; G89.29 Other chronic pain; N50.819 Testicular pain, unspecified; I25.2 Old myocardial infarction; Z95.1 Presence of aortocoronary bypass graft; Z95.5 Presence of coronary angioplasty implant and graft; Z87.891 Personal history of nicotine dependence; Z83.3 Family history of diabetes mellitus
CPT/HCPCS: 36415; 71045; 80048; 80053; 80307; 81001; 82553; 83690; 83735; 83880; 84484; 85025; 85610; 85730; 87077; 87086; 93005; 96361; 96374; 96375; 96376; 99291; G0378; G0379; J0696; J2405; J3010; J7030; 97116-GP; 97535-GO

== ENCOUNTER 2020-06-25 11:41 | Emergency (ER) | payer MEDICARE, MEDICAID ==
[~2020-06-25] VITALS: Ht 180.3 cm; Wt 102.0 kg
[~2020-06-25 11:41] MED LIST changes: +AMLO-187 PO; -AMLO10TA8 PO; +CEFD300C PO; +DOXY100T PO; +ISOS30TA4 PO; +LACT1CAP19 PO; +NITR0.4T24 SL
[2020-06-25 11:45] VITALS: BP 147/79
[2020-06-25] MEDS ORDERED: LIDOCAINE 1% Multi-Dose 20 ML VIAL. INJ ONE (12:45)
[2020-06-25] MEDS ORDERED: TETANUS AND DIPHTHERIA TOX/PF 0.5 ML DISP.SYRIN. VAX IM ONE (12:45)
--- NOTE | 2020-06-25 13:00 | RAD ---
PROCEDURE: HAND RIGHT 3V STUDY DATE: 06/25/2020 CLINICAL INDICATION / HISTORY: Reason: finger and hand lacerations / Spl. Instructions: / History: . TECHNIQUE: PA, lateral and oblique views of the right hand. COMPARISON: None FINDINGS: No fracture or dislocation is identified. The bone density is normal. There is mild MCP joint space narrowing in the third digit with osteophytic spurring in the third metacarpal head compatible with degenerative change. The joint spaces are otherwise maintained, and there are no erosions to suggest an inflammatory arthropathy. The soft tissues are notable for abnormal soft tissue gas in the dorsal aspect of the overlapping fourth and fifth digits, suggesting lacerations. There is soft tissue swelling on the dorsum of the hand with gas in the subcutaneous fat as well. No retained radiopaque foreign body identified.. IMPRESSION: Lacerations in the ulnar-sided digits of the right hand (likely the fourth and fifth digits) with no acute osseous abnormality or malalignment. Electronically signed by: Deny Castillo MD (06/25/2020 12:57 PM) [id number]
[2020-06-25] MEDS ORDERED: CEPH500T PO (14:38)
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
[2020-06-26] MEDS ORDERED: OXYC1TAB15 PO (09:41)
== END 2020-06-25 14:43 | disposition home or self-care (01) ==
LOC: ER 11:41
DX: S61.411A Laceration without foreign body of right hand, initial encounter (principal); I10 Essential (primary) hypertension; I25.2 Old myocardial infarction; I25.10 Atherosclerotic heart disease of native coronary artery without angina pectoris; Z95.1 Presence of aortocoronary bypass graft; Z95.5 Presence of coronary angioplasty implant and graft; Z87.891 Personal history of nicotine dependence; Y28.8XXA Contact with other sharp object, undetermined intent, initial encounter; Y93.89 Activity, other specified; Y92.89 Other specified places as the place of occurrence of the external cause; Y99.8 Other external cause status
CPT/HCPCS: 12004; 73130; 90471; 90714; 99283; J3490

== ENCOUNTER 2020-06-26 09:01 | Emergency (ER) | payer MEDICARE, MEDICAID ==
[~2020-06-26] VITALS: Ht 180.3 cm; Wt 102.0 kg
[2020-06-26 09:15] VITALS: BP 148/74
[2020-06-26] MEDS ORDERED: OXYC1TAB15 PO (09:41)
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
== END 2020-06-26 09:50 | disposition home or self-care (01) ==
LOC: ER 09:01
DX: S61.411D Laceration without foreign body of right hand, subsequent encounter (principal); R22.31 Localized swelling, mass and lump, right upper limb; I10 Essential (primary) hypertension; I25.2 Old myocardial infarction; I25.10 Atherosclerotic heart disease of native coronary artery without angina pectoris; Z95.1 Presence of aortocoronary bypass graft; Z95.5 Presence of coronary angioplasty implant and graft; Z87.891 Personal history of nicotine dependence; X58.XXXD Exposure to other specified factors, subsequent encounter
CPT/HCPCS: 99283

== ENCOUNTER 2020-12-29 15:13 | Emergency (ER) | payer MEDICARE, MEDICAID ==
[~2020-12-29] VITALS: Ht 180.3 cm; Wt 91.0 kg
[~2020-12-29 15:13] MED LIST changes: -ISOS30TA4 PO; +ISOS30TA68 PO
[2020-12-29] MEDS ORDERED: cloNIDine HCL 0.1 MG TABLET PO ONE (17:15)
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
--- NOTE | 2020-12-29 17:48 | RAD ---
AP chest. HISTORY: Fever, chills AP view was taken of the chest. There are changes from previous bypass surgery. There is arthritis in both shoulders. Lungs are free of infiltrates. Heart is normal in size. There is no effusion. IMPRESSION: 1. No acute chest disease. Electronically signed by: Xavi Baker MD (12/29/2020 5:46 PM) [facility]
[2020-12-29 17:55] LABS: BASO % 1 % (0-3); EOS % 1 % (0-3); HEMATOCRIT 52.1 % (39.0-53.0); HEMOGLOBIN 17.3 g/dL (13.0-17.5); LYMPH # 0.5 x10^3/uL (1.0-4.8); LYMPH % 7 % (24-48); MEAN CORPUSCULAR HEMOGLOBIN 28 pg (25-35); MEAN CORPUSCULAR HGB CONC 33 g/dL (31-37); MEAN CORPUSCULAR VOLUME 85 fL (79-100); MONO # 0.5 x10^3/uL (0.0-1.1); MONO % 7 % (0-9); NEUT # 6.4 x10^3/uL (1.8-7.7); NEUT % 86 % (31-73); PLATELET COUNT 171 x10^3/uL (140-400); RED BLOOD COUNT 6.13 x10^6/uL (4.30-5.70); WHITE BLOOD COUNT 7.5 x10^3/uL (4.0-11.0)
[2020-12-29 18:05] LABS: CALCIUM 8.9 mg/dL (8.5-10.1); CREATININE 1.4 mg/dL (0.7-1.3); POTASSIUM 4.1 mmol/L (3.5-5.1)
[2020-12-29 18:11] LABS: ALBUMIN 4.3 g/dL (3.4-5.0); TOTAL BILIRUBIN 0.7 mg/dL (0.2-1.0); TOTAL PROTEIN 8.5 g/dL (6.4-8.2)
--- NOTE | 2020-12-29 18:35 | EKG ---
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
[2020-12-29 19:12] LABS: % EOS 1 % (0-5); % LYMPHS 5 % (24-48); % MONOS 6 % (0-10); % SEGS 88 % (35-66); PLT ESTIMATE ADEQUATE (ADEQUATE)
[2020-12-29 23:58] LABS: BILIRUBIN,URINE NEGATIVE (NEG); CLARITY,URINE CLEAR; COLOR,URINE YELLOW; NITRITE,URINE NEGATIVE (NEG); PROTEIN,URINE NEGATIVE (NEG-TRACE)
[2020-12-30 00:04] LABS: BACTERIA,URINE FEW /HPF (0-FEW); RBC,URINE RARE /HPF (0-2)
[2020-12-30 00:10] LABS: BARBITURATES NEG (NEG); BENZODIAZEPINES NEG (NEG); CANNABINOIDS NEG (NEG); COCAINE POS (NEG); METHADONE NEG (NEG); OPIATES NEG (NEG); PHENCYCLIDINE NEG (NEG)
[2020-12-30 00:16] LABS: AMPHETAMINE/METHAMPHETAMINE NEG (NEG)
[2020-12-30 04:15] VITALS: BP 160/88
[2020-12-30] MEDS ORDERED: ALBUTEROL SULFATE 8GM INHALER. INH PRN (07:00)
== END 2020-12-30 07:53 | disposition home or self-care (01) ==
LOC: ER 15:13
DX: T69.9XXA Effect of reduced temperature, unspecified, initial encounter (principal); I10 Essential (primary) hypertension; Z20.822 Contact with and (suspected) exposure to COVID-19; I25.810 Atherosclerosis of coronary artery bypass graft(s) without angina pectoris; I25.2 Old myocardial infarction; Z98.61 Coronary angioplasty status
CPT/HCPCS: 36415; 71045; 80053; 80307; 81001; 83605; 83880; 84484; 85007; 85025; 87086; 87426; 93005; 99285; G0480; U0003; U0005

== ENCOUNTER 2021-11-16 13:43 | Inpatient (IN) | payer MEDICARE, MEDICAID ==
[~2021-11-16] VITALS: Ht 180.3 cm; Wt 104.0 kg
[~2021-11-16 13:43] MED LIST changes: +DOCU-148 PO; -DOCU-153 PO
[2021-11-16] MEDS ORDERED: MECLIZINE HCL 12.5 MG TABLET. PO ONE (14:15)
[2021-11-16 14:46] LABS: BASO % 1 % (0-3); EOS # 0.1 x10^3/uL (0.0-0.7); EOS % 1 % (0-3); HEMATOCRIT 48.7 % (39.0-53.0); HEMOGLOBIN 16.2 g/dL (13.0-17.5); LYMPH # 1.3 x10^3/uL (1.0-4.8); LYMPH % 26 % (24-48); MEAN CORPUSCULAR HEMOGLOBIN 28 pg (25-35); MEAN CORPUSCULAR HGB CONC 33 g/dL (31-37); MEAN CORPUSCULAR VOLUME 86 fL (79-100); MONO # 0.4 x10^3/uL (0.0-1.1); MONO % 9 % (0-9); NEUT # 3.1 x10^3/uL (1.8-7.7); NEUT % 63 % (31-73); PLATELET COUNT 175 x10^3/uL (140-400); RED BLOOD COUNT 5.69 x10^6/uL (4.30-5.70); RED CELL DISTRIBUTION WIDTH 13.8 % (11.5-14.5); WHITE BLOOD COUNT 4.9 x10^3/uL (4.0-11.0)
[2021-11-16 14:58] LABS: PROTHROMBIN TIME PATIENT 13.1 SEC (11.7-14.0)
--- NOTE | 2021-11-16 15:13 | RAD ---
CT Head without contrast 11/16/2021 2:43 PM Indication: Dizziness Comparison: CT head without contrast November 30, 2019 Findings: Area of right occipital and temporal encephalomalacia is similar. No evidence of subacute t erritorial infarct is seen. Note that CT is limited in sensitivity for acute ischemia. Age-related atrophic changes are noted. There is patchy periventricular and deep white matter hypoattenuation wh ich is nonspecific, but most commonly relates to chronic small vessel disease. No abnormal extra axi al fluid collection is identified. No mass effect or midline shift is seen. No acute osseous abnorma lities are seen. Impression: 1. No acute intracranial process identified 2. Right occipital and temporal encephalomalacia, similar to comparison exam. Similar senescent atrop hic changes and changes of chronic small vessel disease CT DOSING PQRS STATEMENT: One or more of the following individualized dose reduction techniques were utilized for this examinat ion: 1. Automated exposure control 2. Adjustment of the mA and/or kV according to patient size 3. Use of iterative reconstruction technique Electronically signed by: González Cruz MD (11/16/2021 3:10 PM) [id number]
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
[2021-11-16] MEDS ORDERED: ACETAMINOPHEN 325 MG TABLET. PO PRN (18:00)
[2021-11-16] MEDS ORDERED: ONDANSETRON PF 4 MG/2 ML VIAL. IVP PRN (18:00)
[2021-11-16 18:08] LABS: CALCIUM 8.7 mg/dL (8.5-10.1); CREATININE 1.3 mg/dL (0.7-1.3); GFR 64.3; POTASSIUM 4.4 mmol/L (3.5-5.1)
[2021-11-16 18:16] LABS: ALBUMIN 3.5 g/dL (3.4-5.0); MAGNESIUM 2.3 mg/dL (1.8-2.4); TOTAL BILIRUBIN 0.3 mg/dL (0.2-1.0)
--- NOTE | 2021-11-16 18:47 | EKG ---
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
[2021-11-16 19:45] VITALS: BP 150/72
[2021-11-16 19:58] LABS: CLARITY,URINE CLEAR; COLOR,URINE YELLOW
[2021-11-16 19:59] LABS: AMORPHOUS SEDIMENT,UR PRESENT /HPF; BILIRUBIN,URINE NEGATIVE (NEG); NITRITE,URINE POSITIVE (NEG); PROTEIN,URINE NEGATIVE (NEG-TRACE); UROBILINOGEN,URINE 0.2 mg/dL (0.2 mg/dL)
[2021-11-16 20:00] LABS: BACTERIA,URINE MANY /HPF (0-FEW); RBC,URINE 0 /HPF (0-2)
[2021-11-16 23:15] VITALS: BP 143/67
[2021-11-17] MEDS: MORPHINE SULFATE 2 MG/ML INJ. IVP PRN ×2 (00:22→06:27)
[2021-11-17 03:10] VITALS: BP 134/63
[2021-11-17 03:26] LABS: BASO % 1 % (0-3); EOS # 0.1 x10^3/uL (0.0-0.7); EOS % 2 % (0-3); HEMATOCRIT 47.1 % (39.0-53.0); HEMOGLOBIN 15.5 g/dL (13.0-17.5); LYMPH # 1.9 x10^3/uL (1.0-4.8); LYMPH % 41 % (24-48); MEAN CORPUSCULAR HEMOGLOBIN 28 pg (25-35); MEAN CORPUSCULAR HGB CONC 33 g/dL (31-37); MEAN CORPUSCULAR VOLUME 86 fL (79-100); MONO # 0.5 x10^3/uL (0.0-1.1); MONO % 11 % (0-9); NEUT # 2.2 x10^3/uL (1.8-7.7); NEUT % 46 % (31-73); PLATELET COUNT 167 x10^3/uL (140-400); RED BLOOD COUNT 5.49 x10^6/uL (4.30-5.70); RED CELL DISTRIBUTION WIDTH 13.9 % (11.5-14.5); WHITE BLOOD COUNT 4.8 x10^3/uL (4.0-11.0)
[2021-11-17 03:54] LABS: CALCIUM 8.6 mg/dL (8.5-10.1); CREATININE 1.3 mg/dL (0.7-1.3); GFR 64.3; POTASSIUM 3.9 mmol/L (3.5-5.1)
[2021-11-17 04:28] LABS: CHOLESTEROL/HDL RATIO 3.2
[2021-11-17 07:00] VITALS: BP 157/77
[2021-11-17] MEDS: ENOXAPARIN 40 MG/0.4 ML SYRINGE. SQ SCH (09:22)
--- NOTE | 2021-11-17 09:31 | PDOC1 ---
History and Physical Date of Admission Date of Admission DATE: 11/17/21 TIME: 09:20 Identification/Chief Complaint Chief Complaint Dizziness Source Source: Patient History of Present Illness History of Present Illness Patient is an 80-year-old male with past medical history HTN, CAD, [place] with stent, who presents to the ED with complaint of dizziness for the past 2 days. He reports dizziness as if the room is spinning. He does note a history of vertigo, but states his vertigo symptoms usually resolve spontaneously. At the time of my evaluation patient still complains of dizziness at rest. He denies any nausea or vomiting. He does report some pain on urination. Labs on admission were quite unremarkable except urinalysis showed positive nitrites, trace leukocyte esterase, many bacteria, and amorphous sediment. He will be admitted for further evaluation. Past Medical History Cardiovascular: CAD, HTN CENTRAL NERVOUS SYSTEM: CVA GI: GERD Psych: Addictions Musculoskeletal: Osteoarthritis Renal/: Chronic renal insuff Past Surgical History Past Surgical History: CABG Family History Family History: Asthma, High Cholestrol, Hypertension Family History: Parent Social History Smoke: No ALCOHOL: occassional Drugs: Cocaine Current Problem List Problem List Problems Medical Problems: (1) Light-headed Status: Acute Current Medications Current Medications Current Medications Meclizine HCl (Antivert) 12.5 mg 1X ONCE PO Last administered on 11/16/21at 16:01; Start 11/16/21 at 14:15; Stop 11/16/21 at 14:26; Status DC Ondansetron HCl (Zofran) 4 mg PRN Q8HRS PRN IVP NAUSEA/VOMITING; Start 11/16/21 at 18:00; Stop 11/17/21 at 17:59 Morphine Sulfate (Morphine Sulfate) 2 mg PRN Q2HR PRN IVP PAIN Last administered on 11/17/21at 06:27; Start 11/16/21 at 18:00; Stop 11/17/21 at 17:59 Acetaminophen (Tylenol) 650 mg PRN Q4HRS PRN PO FEVER > 100.3'F Last administered on 11/16/21at 21:05; Start 11/16/21 at 18:00; Stop 11/17/21 at 17:59 Enoxaparin Sodium (Lovenox 40mg Syringe) 40 mg DAILY SQ ; Start 11/17/21 at 09:00 Atorvastatin Calcium (Lipitor) 40 mg HS PO ; Start 11/17/21 at 21:00 Active Scripts Active Nitrostat (Nitroglycerin) 0.4 Mg Tab.subl 0.4 Mg SL PRN Q5MIN PRN 30 Days Isosorbide Mononitrate Er (Isosorbide Mononitrate) 30 Mg Tab.er.24h 30 Mg PO DAILY 30 Days Proair Hfa Inhaler (Albuterol Sulfate) 8.5 Gm Hfa.aer.ad 2 Puff IH PRN Q4-6HRS PRN 21 Days Lisinopril 40 Mg Tablet 20 Mg PO DAILY 30 Days Proair Hfa (Albuterol Sulfate) 8.5 Gm Hfa.aer.ad 2.5 Mg NEB PRN Q4HRS PRN 30 Days Reported Atorvastatin Calcium 40 Mg Tablet 40 Mg PO HS Amlodipine Besylate 10 Mg Tablet 10 Mg PO DAILY Allergies Allergies: Coded Allergies: No Known Drug Allergies (Unverified , 09/30/14) ROS Review of System GENERAL: No history of weight change, weakness or fevers. SKIN: No bruising, hair changes or rashes. EYES: No blurred, double or loss of vision. NOSE AND THROAT: No history of nosebleeds, hoarseness or sore throat. HEART: Denies chest pain, denies palpitations. LUNGS: Denies cough, hemoptysis, wheezing or shortness of breath. GASTROINTESTINAL: Denies nausea, vomiting, abdominal pain. GENITOURINARY: Dysuria. Denies frequency, urgency, hematuria. NEUROLOGIC: Dizziness. Denies history of numbness, tingling, tremor or weakness. PSYCHIATRIC: Denies anxiety, denies depression. ENDOCRINE: No history of heat or cold intolerance, polyuria or polydipsia. EXTREMITIES: Denies muscle weakness, joint pain, pain on walking or stiffness. Physical Exam Physical Exam General: Alert, Oriented X3, Cooperative, No acute distress HEENT: Horizontal nystagmus. PERRLA, EOMI Lungs: Clear to auscultation, Normal air movement Heart: RRR, no murmurs Cardiovascular: S1, S2 Abdomen: Normal bowel sounds, Soft, No tenderness Extremities: No clubbing, No cyanosis Skin: No rashes, No significant lesion Neuro: Normal speech, Normal tone, Sensation intact Psych/Mental Status: Mental status NL, Mood NL Vitals Vitals Vital Signs Date Time Temp Pulse Resp B/P (MAP) Pulse Ox O2 Delivery O2 Flow Rate FiO2 11/17/21 07:00 97.8 71 18 157/77 (103) 96 Room Air 97.8 Labs Labs Laboratory Tests Test 11/16/21 14:35 11/16/21 17:45 11/16/21 19:45 11/17/21 03:00 White Blood Count 4.9 x10^3/uL (4.0-11.0) 4.8 x10^3/uL (4.0-11.0) Red Blood Count 5.69 x10^6/uL (4.30-5.70) 5.49 x10^6/uL (4.30-5.70) Hemoglobin 16.2 g/dL (13.0-17.5) 15.5 g/dL (13.0-17.5) Hematocrit 48.7 % (39.0-53.0) 47.1 % (39.0-53.0) Mean Corpuscular Volume 86 fL (79-100) 86 fL (79-100) Mean Corpuscular Hemoglobin 28 pg (25-35) 28 pg (25-35) Mean Corpuscular Hemoglobin Concent 33 g/dL (31-37) 33 g/dL (31-37) Red Cell Distribution Width 13.8 % (11.5-14.5) 13.9 % (11.5-14.5) Platelet Count 175 x10^3/uL (140-400) 167 x10^3/uL (140-400) Neutrophils (%) (Auto) 63 % (31-73) 46 % (31-73) Lymphocytes (%) (Auto) 26 % (24-48) 41 % (24-48) Monocytes (%) (Auto) 9 % (0-9) 11 % (0-9) Eosinophils (%) (Auto) 1 % (0-3) 2 % (0-3) Basophils (%) (Auto) 1 % (0-3) 1 % (0-3) Neutrophils # (Auto) 3.1 x10^3/uL (1.8-7.7) 2.2 x10^3/uL (1.8-7.7) Lymphocytes # (Auto) 1.3 x10^3/uL (1.0-4.8) 1.9 x10^3/uL (1.0-4.8) Monocytes # (Auto) 0.4 x10^3/uL (0.0-1.1) 0.5 x10^3/uL (0.0-1.1) Eosinophils # (Auto) 0.1 x10^3/uL (0.0-0.7) 0.1 x10^3/uL (0.0-0.7) Basophils # (Auto) 0.0 x10^3/uL (0.0-0.2) 0.0 x10^3/uL (0.0-0.2) Prothrombin Time 13.1 SEC (11.7-14.0) Prothromb Time International Ratio 1.0 (0.8-1.1) Activated Partial Thromboplast Time 27 SEC (24-38) Sodium Level 140 mmol/L (136-145) 142 mmol/L (136-145) Potassium Level 4.4 mmol/L (3.5-5.1) 3.9 mmol/L (3.5-5.1) Chloride Level 104 mmol/L (98-107) 107 mmol/L (98-107) Carbon Dioxide Level 26 mmol/L (21-32) 24 mmol/L (21-32) Anion Gap 10 (6-14) 11 (6-14) Blood Urea Nitrogen 21 mg/dL (8-26) 23 mg/dL (8-26) Creatinine 1.3 mg/dL (0.7-1.3) 1.3 mg/dL (0.7-1.3) Estimated GFR (Cockcroft-Gault) 64.3 64.3 BUN/Creatinine Ratio 16 (6-20) Glucose Level 104 mg/dL (70-99) 108 mg/dL (70-99) Calcium Level 8.7 mg/dL (8.5-10.1) 8.6 mg/dL (8.5-10.1) Magnesium Level 2.3 mg/dL (1.8-2.4) Total Bilirubin 0.3 mg/dL (0.2-1.0) Aspartate Amino Transf (AST/SGOT) 21 U/L (15-37) Alanine Aminotransferase (ALT/SGPT) 31 U/L (16-63) Alkaline Phosphatase 218 U/L (46-116) Troponin I High Sensitivity 15 ng/L (4-75) 30 ng/L (4-75) Total Protein 7.0 g/dL (6.4-8.2) Albumin 3.5 g/dL (3.4-5.0) Albumin/Globulin Ratio 1.0 (1.0-1.7) Urine Collection Type Unknown Urine Color Yellow Urine Clarity Clear Urine pH 7.0 (<5.0-8.0) Urine Specific [place] 1.025 (1.000-1.030) Urine Protein Negative mg/dL (NEG-TRACE) Urine Glucose (UA) Negative mg/dL (NEG) Urine Ketones (Stick) Negative mg/dL (NEG) Urine Blood Negative (NEG) Urine Nitrite Positive (NEG) Urine Bilirubin Negative (NEG) Urine Urobilinogen Dipstick 0.2 mg/dL (0.2 mg/dL) Urine Leukocyte Esterase Trace (NEG) Urine RBC 0 /HPF (0-2) Urine WBC 11-20 /HPF (0-4) Urine Squamous Epithelial Cells Mod /LPF Urine Amorphous Sediment Present /HPF Urine Bacteria Many /HPF (0-FEW) Urine Mucus Mod /LPF Triglycerides Level 71 mg/dL (0-150) Cholesterol Level 136 mg/dL (0-200) LDL Cholesterol, Calculated 79 mg/dL (0-100) VLDL Cholesterol, Calculated 14 mg/dL (0-40) Non-HDL Cholesterol Calculated 93 mg/dL (0-129) HDL Cholesterol 43 mg/dL (40-60) Cholesterol/HDL Ratio 3.2 Test 11/17/21 06:20 SARS-CoV-2 Antigen (Rapid) Negative (NEGATIVE) Laboratory Tests Test 11/16/21 14:35 11/16/21 17:45 11/16/21 19:45 11/17/21 03:00 White Blood Count 4.9 x10^3/uL (4.0-11.0) 4.8 x10^3/uL (4.0-11.0) Red Blood Count 5.69 x10^6/uL (4.30-5.70) 5.49 x10^6/uL (4.30-5.70) Hemoglobin 16.2 g/dL (13.0-17.5) 15.5 g/dL (13.0-17.5) Hematocrit 48.7 % (39.0-53.0) 47.1 % (39.0-53.0) Mean Corpuscular Volume 86 fL (79-100) 86 fL (79-100) Mean Corpuscular Hemoglobin 28 pg (25-35) 28 pg (25-35) Mean Corpuscular Hemoglobin Concent 33 g/dL (31-37) 33 g/dL (31-37) Red Cell Distribution Width 13.8 % (11.5-14.5) 13.9 % (11.5-14.5) Platelet Count 175 x10^3/uL (140-400) 167 x10^3/uL (140-400) Neutrophils (%) (Auto) 63 % (31-73) 46 % (31-73) Lymphocytes (%) (Auto) 26 % (24-48) 41 % (24-48) Monocytes (%) (Auto) 9 % (0-9) 11 % (0-9) Eosinophils (%) (Auto) 1 % (0-3) 2 % (0-3) Basophils (%) (Auto) 1 % (0-3) 1 % (0-3) Neutrophils # (Auto) 3.1 x10^3/uL (1.8-7.7) 2.2 x10^3/uL (1.8-7.7) Lymphocytes # (Auto) 1.3 x10^3/uL (1.0-4.8) 1.9 x10^3/uL (1.0-4.8) Monocytes # (Auto) 0.4 x10^3/uL (0.0-1.1) 0.5 x10^3/uL (0.0-1.1) Eosinophils # (Auto) 0.1 x10^3/uL (0.0-0.7) 0.1 x10^3/uL (0.0-0.7) Basophils # (Auto) 0.0 x10^3/uL (0.0-0.2) 0.0 x10^3/uL (0.0-0.2) Prothrombin Time 13.1 SEC (11.7-14.0) Prothromb Time International Ratio 1.0 (0.8-1.1) Activated Partial Thromboplast Time 27 SEC (24-38) Sodium Level 140 mmol/L (136-145) 142 mmol/L (136-145) Potassium Level 4.4 mmol/L (3.5-5.1) 3.9 mmol/L (3.5-5.1) Chloride Level 104 mmol/L (98-107) 107 mmol/L (98-107) Carbon Dioxide Level 26 mmol/L (21-32) 24 mmol/L (21-32) Anion Gap 10 (6-14) 11 (6-14) Blood Urea Nitrogen 21 mg/dL (8-26) 23 mg/dL (8-26) Creatinine 1.3 mg/dL (0.7-1.3) 1.3 mg/dL (0.7-1.3) Estimated GFR (Cockcroft-Gault) 64.3 64.3 BUN/Creatinine Ratio 16 (6-20) Glucose Level 104 mg/dL (70-99) 108 mg/dL (70-99) Calcium Level 8.7 mg/dL (8.5-10.1) 8.6 mg/dL (8.5-10.1) Magnesium Level 2.3 mg/dL (1.8-2.4) Total Bilirubin 0.3 mg/dL (0.2-1.0) Aspartate Amino Transf (AST/SGOT) 21 U/L (15-37) Alanine Aminotransferase (ALT/SGPT) 31 U/L (16-63) Alkaline Phosphatase 218 U/L (46-116) Troponin I High Sensitivity 15 ng/L (4-75) 30 ng/L (4-75) Total Protein 7.0 g/dL (6.4-8.2) Albumin 3.5 g/dL (3.4-5.0) Albumin/Globulin Ratio 1.0 (1.0-1.7) Urine Collection Type Unknown Urine Color Yellow Urine Clarity Clear Urine pH 7.0 (<5.0-8.0) Urine Specific [place] 1.025 (1.000-1.030) Urine Protein Negative mg/dL (NEG-TRACE) Urine Glucose (UA) Negative mg/dL (NEG) Urine Ketones (Stick) Negative mg/dL (NEG) Urine Blood Negative (NEG) Urine Nitrite Positive (NEG) Urine Bilirubin Negative (NEG) Urine Urobilinogen Dipstick 0.2 mg/dL (0.2 mg/dL) Urine Leukocyte Esterase Trace (NEG) Urine RBC 0 /HPF (0-2) Urine WBC 11-20 /HPF (0-4) Urine Squamous Epithelial Cells Mod /LPF Urine Amorphous Sediment Present /HPF Urine Bacteria Many /HPF (0-FEW) Urine Mucus Mod /LPF Triglycerides Level 71 mg/dL (0-150) Cholesterol Level 136 mg/dL (0-200) LDL Cholesterol, Calculated 79 mg/dL (0-100) VLDL Cholesterol, Calculated 14 mg/dL (0-40) Non-HDL Cholesterol Calculated 93 mg/dL (0-129) HDL Cholesterol 43 mg/dL (40-60) Cholesterol/HDL Ratio 3.2 Test 11/17/21 06:20 SARS-CoV-2 Antigen (Rapid) Negative (NEGATIVE) Images Images PATIENT: GLEN MENDEZ DACCOUNT: [id number] : 1940 LOCATION: ER AGE: 80 SEX: M EXAM STATUS: REG ER ORD. PHYSICIAN: NAHUM DEE APRN REASON: dizziness PROCEDURE: CT HEAD WO CONTRAST CT Head without contrast 11/16/2021 2:43 PM Indication: Dizziness Comparison: CT head without contrast November 30, 2019 Findings: Area of right occipital and temporal encephalomalacia is similar. No evidence of subacute territorial infarct is seen. Note that CT is limited in sensitivity for acute ischemia. Age-related atrophic changes are noted. There is patchy periventricular and deep white matter hypoattenuation which is nonspecific, but most commonly relates to chronic small vessel disease. No abnormal extra axial fluid collection is identified. No mass effect or midline shift is seen. No acute osseous abnormalities are seen. Impression: 1. No acute intracranial process identified 2. Right occipital and temporal encephalomalacia, similar to comparison exam. Similar senescent atrophic changes and changes of chronic small vessel disease VTE Prophylaxis Ordered VTE Prophylaxis Devices: No VTE Pharmacological Prophylaxi: Yes Assessment/Plan Assessment/Plan Dizziness UTI HTN CAD History [place] Plan: Place consult to neurology for evaluation of possible posterior CVA Will provide single dose of Rocephin, and continue treatment with oral Bactrim if symptoms persist. Resume home medications FEN - Cardiac diet PPX - Lovenox DNR Dispo - inpatient for above Justifications for Admission Other Justification MARK BRANDON MD Nov 17, 2021 09:31
[2021-11-17] MEDS ORDERED: MORPHINE SULFATE 2 MG/ML INJ. IV PRN (09:45)
[2021-11-17] MEDS ORDERED: ALBUTEROL SULFATE 2.5 MG/3 ML NEBU. NEB PRN (09:45)
[2021-11-17] MEDS ORDERED: ACETAMINOPHEN 325 MG TABLET. PO PRN (09:45)
[2021-11-17] MEDS ORDERED: IBUPROFEN 400 MG TABLET. PO PRN (09:45)
[2021-11-17] MEDS ORDERED: MAG HYDROX/ALUMINUM HYD/SIMETH 30 ML ORAL.SUSP PO PRN (09:45)
[2021-11-17] MEDS ORDERED: CALCIUM CARBONATE 500 MG TAB.CHEW PO PRN (09:45)
[2021-11-17] MEDS ORDERED: ZOLPIDEM 5 MG TABLET. PO PRN (09:45)
[2021-11-17] MEDS ORDERED: ONDANSETRON PF 4 MG/2 ML VIAL. IVP PRN (09:45)
[2021-11-17 10:30] VITALS: BP 165/71
[2021-11-17] MEDS ORDERED: cefTRIAXone IV Push 1 GM VIAL. IVP ONE (10:30)
--- NOTE | 2021-11-17 10:56 | PDOC2 ---
CARDIAC CONSULT DATE OF CONSULT Date of Consult DATE: 11/17/21 TIME: 10:54 REASON FOR CONSULT Reason for Consult: Dizziness REFERRING PHYSICIAN Referring Physician: Nilam Garcia APRN SOURCE Source: Chart review, Patient HISTORY OF PRESENT ILLNESS HISTORY OF PRESENT ILLNESS This is an 80 yo male who presented secondary to dizziness over the last couple of days. Due to heart history, cardiology consult was obtained. Patient reports dizziness as mostly constant. Has a history of vertigo, but reports this feeling to be very different from what he has previously experienced with vertigo. He denies any chest pain, palpitations, diaphoresis, or nausea/vomiting. AMI has been ruled out. UA was notable for UTI. PAST MEDICAL HISTORY Past Medical History Cardiovascular: CAD, HTN CENTRAL NERVOUS SYSTEM: CVA GI: GERD Musculoskeletal: Osteoarthritis Renal/: Chronic renal insuff PAST SURGICAL HISTORY Past Surgical History CABG, Tonsillectomy FAMILY HISTORY Family History: Asthma SOCIAL HISTORY Social History Smoke: Quit ALCOHOL: occasional Drugs: H/o Cocaine use- has not used for "months" Lives: Friends CURRENT MEDICATIONS CURRENT MEDICATIONS Current Medications Medications (Trade) Dose Ordered Sig/[place] Route PRN Reason Start Time Stop Time Status Last Admin Dose Admin Meclizine HCl (Antivert) 12.5 mg 1X ONCE PO 11/16/21 14:15 11/16/21 14:26 DC 11/16/21 16:01 Morphine Sulfate (Morphine Sulfate) 2 mg PRN Q2HR PRN IVP PAIN 11/16/21 18:00 11/17/21 17:59 11/17/21 06:27 Acetaminophen (Tylenol) 650 mg PRN Q4HRS PRN PO FEVER > 100.3'F 11/16/21 18:00 11/17/21 17:59 11/16/21 21:05 Enoxaparin Sodium (Lovenox 40mg Syringe) 40 mg DAILY SQ 11/17/21 09:00 11/17/21 09:22 ALLERGIES ALLERGIES: Coded Allergies: No Known Drug Allergies (Unverified , 09/30/14) ROS Review of System 14 point ROS conducted with pertinent positives noted above in hPI PHYSICAL EXAM PHYSICAL EXAM General: Alert, Oriented X3, Cooperative, No acute distress HEENT: Atraumatic, Mucous membr. moist/pink Lungs: Clear to auscultation Heart: Regular rate, Other (2/6 systolic murmur) Abdomen: Soft, No tenderness Extremities: No edema, Normal pulses Skin: No significant lesion Neuro: Normal speech, Sensation intact Psych/Mental Status: Mental status NL, Mood NL MUSCULOSKELETAL: Osteoarthritic changes both hands VITALS/I&O VITALS/I&O: Vital Signs Date Time Temp Pulse Resp B/P (MAP) Pulse Ox O2 Delivery O2 Flow Rate FiO2 11/17/21 10:05 Room Air 11/17/21 07:00 97.8 71 18 157/77 (103) 96 97.8 I & O 11/16/21 11/16/21 11/17/21 15:00 23:00 07:00 Intake Total 1000 ml Output Total 450 ml Balance 550 ml LABS Lab: Laboratory Tests Test 11/16/21 14:35 11/16/21 17:45 11/16/21 19:45 11/17/21 03:00 White Blood Count 4.9 x10^3/uL (4.0-11.0) 4.8 x10^3/uL (4.0-11.0) Red Blood Count 5.69 x10^6/uL (4.30-5.70) 5.49 x10^6/uL (4.30-5.70) Hemoglobin 16.2 g/dL (13.0-17.5) 15.5 g/dL (13.0-17.5) Hematocrit 48.7 % (39.0-53.0) 47.1 % (39.0-53.0) Mean Corpuscular Volume 86 fL (79-100) 86 fL (79-100) Mean Corpuscular Hemoglobin 28 pg (25-35) 28 pg (25-35) Mean Corpuscular Hemoglobin Concent 33 g/dL (31-37) 33 g/dL (31-37) Red Cell Distribution Width 13.8 % (11.5-14.5) 13.9 % (11.5-14.5) Platelet Count 175 x10^3/uL (140-400) 167 x10^3/uL (140-400) Neutrophils (%) (Auto) 63 % (31-73) 46 % (31-73) Lymphocytes (%) (Auto) 26 % (24-48) 41 % (24-48) Monocytes (%) (Auto) 9 % (0-9) 11 % (0-9) H Eosinophils (%) (Auto) 1 % (0-3) 2 % (0-3) Basophils (%) (Auto) 1 % (0-3) 1 % (0-3) Neutrophils # (Auto) 3.1 x10^3/uL (1.8-7.7) 2.2 x10^3/uL (1.8-7.7) Lymphocytes # (Auto) 1.3 x10^3/uL (1.0-4.8) 1.9 x10^3/uL (1.0-4.8) Monocytes # (Auto) 0.4 x10^3/uL (0.0-1.1) 0.5 x10^3/uL (0.0-1.1) Eosinophils # (Auto) 0.1 x10^3/uL (0.0-0.7) 0.1 x10^3/uL (0.0-0.7) Basophils # (Auto) 0.0 x10^3/uL (0.0-0.2) 0.0 x10^3/uL (0.0-0.2) Prothrombin Time 13.1 SEC (11.7-14.0) Prothrombin Time INR 1.0 (0.8-1.1) Activated Partial Thromboplast Time 27 SEC (24-38) Sodium Level 140 mmol/L (136-145) 142 mmol/L (136-145) Potassium Level 4.4 mmol/L (3.5-5.1) 3.9 mmol/L (3.5-5.1) Chloride Level 104 mmol/L (98-107) 107 mmol/L (98-107) Carbon Dioxide Level 26 mmol/L (21-32) 24 mmol/L (21-32) Anion Gap 10 (6-14) 11 (6-14) Blood Urea Nitrogen 21 mg/dL (8-26) 23 mg/dL (8-26) Creatinine 1.3 mg/dL (0.7-1.3) 1.3 mg/dL (0.7-1.3) Estimated GFR (Cockcroft-Gault) 64.3 64.3 BUN/Creatinine Ratio 16 (6-20) Glucose Level 104 mg/dL (70-99) H 108 mg/dL (70-99) H Calcium Level 8.7 mg/dL (8.5-10.1) 8.6 mg/dL (8.5-10.1) Magnesium Level 2.3 mg/dL (1.8-2.4) Total Bilirubin 0.3 mg/dL (0.2-1.0) Aspartate Amino Transferase (AST) 21 U/L (15-37) Alanine Aminotransferase (ALT) 31 U/L (16-63) Alkaline Phosphatase 218 U/L (46-116) H Troponin I High Sensitivity 15 ng/L (4-75) 30 ng/L (4-75) Total Protein 7.0 g/dL (6.4-8.2) Albumin 3.5 g/dL (3.4-5.0) Albumin/Globulin Ratio 1.0 (1.0-1.7) Urine Collection Type Unknown Urine Color Yellow Urine Clarity Clear Urine pH 7.0 (<5.0-8.0) Urine Specific [place] 1.025 (1.000-1.030) Urine Protein Negative mg/dL (NEG-TRACE) Urine Glucose (UA) Negative mg/dL (NEG) Urine Ketones (Stick) Negative mg/dL (NEG) Urine Blood Negative (NEG) Urine Nitrite Positive (NEG) Urine Bilirubin Negative (NEG) Urine Urobilinogen Dipstick 0.2 mg/dL (0.2 mg/dL) Urine Leukocyte Esterase Trace (NEG) Urine RBC 0 /HPF (0-2) Urine WBC 11-20 /HPF (0-4) Urine Squamous Epithelial Cells Mod /LPF Urine Amorphous Sediment Present /HPF Urine Bacteria Many /HPF (0-FEW) Urine Mucus Mod /LPF Triglycerides Level 71 mg/dL (0-150) Cholesterol Level 136 mg/dL (0-200) LDL Cholesterol, Calculated 79 mg/dL (0-100) VLDL Cholesterol, Calculated 14 mg/dL (0-40) Non-HDL Cholesterol Calculated 93 mg/dL (0-129) HDL Cholesterol 43 mg/dL (40-60) Cholesterol/HDL Ratio 3.2 Test 11/17/21 06:20 SARS-CoV-2 Antigen (Rapid) Negative (NEGATIVE) Laboratory Tests 11/16/21 14:35 11/17/21 03:00 Laboratory Tests 11/16/21 17:45 11/17/21 03:00 ECHOCARDIOGRAM ECHOCARDIOGRAM <Conclusion> There is mild to modeate concentric left ventricular hypertrophy. The left ventricular systolic function is normal and the ejection fraction is within normal range. The Ejection Fraction is 60-65%. Doppler and Color Flow revealed moderate aortic regurgitation. Doppler and Color Flow revealed mild to moderate pulmonic valvular regurgitation. The ascending aorta is mildly dilated at 3.6 cm. DATE: 12/02/19 1025 <Conclusion> Limited study for LV systolic function. The left ventricle is normal size. The left ventricular systolic function is normal and the ejection fraction is within normal range. The Ejection Fraction is 50-55%. There is normal LV segmental wall motion. There is mild concentric left ventricular hypertrophy. DATE: 05/14/20 1147 HEART CATH HEART CATH CORONARY ANGIOGRAPHY: LM is a large caliber vessel with normal angiographic appearance. LAD is a large caliber vessel with a proximal subtotal occlusion. Ramus is a moderate caliber vessel with normal angiographic appearance. LCx is a moderate caliber non-dominant vessel with proximal 50% stenosis. OM1 is a moderate caliber vessel with a proximal 95% stenosis. RCA is a large caliber dominant vessel with a 50% ISR of the proximal to mid overlapping stents, cannot rule out stent fracture in the midsegment. RPDA is a moderate caliber vessels with normal angiographic appearance. BYPASS ANGIOGRAPHY: CERDA to LAD is widely patent without anastomotic stenosis. SVG to OM1 is patent without anastomotic stenosis. RCA graft is known occluded from cardiac cath in 2009 and not injected. Conclusion 1. Normal left sided filling pressures. 2. Three vessel coronary disease. 3. 2/3 grafts patent. Recommendations Likely Type 2 NSTEMI in the setting of cocaine use, continue aggressive medical therapy with BP control. DATE: 05/14/20 1308 ASSESSMENT/PLAN ASSESSMENT/PLAN 1. Dizziness, h/o vertigo; CT head with right occipital and temporal encepha lomalacia. No evidence of acute stroke. Neuro following- MRI planned. No acute event on tele. ? UTI contributing 2. UTI; as per IM 3. CAD s/p CABG 2004. [facility] 05/14/2020 revealed 3VD with 2/3 grafts patent, no intervenable lesion EF and WM nml 4. Accelerated hypertension; remains elevated 5. Hyperlipidemia; statin 6. H/o substance abuse; Cocaine/marijuana use. presently denies 7. Tobaccoism Recommendations Continue secondary prevention measures Add ASA, continue stating Add low-dose BB therapy Home BP meds resumed. Monitor BP and titrate therapy as warranted Consider out patient ischemic evaluation Follow neurology recs Supportive care SANGEETA PACE APRN Nov 17, 2021 10:56
[2021-11-17] MEDS: ISOSORBIDE MONONITRATE ER 30 MG TAB.ER.24H PO SCH (10:59)
[2021-11-17] MEDS: LISINOPRIL 20 MG TABLET PO SCH (11:00)
--- NOTE | 2021-11-17 12:06 | PDOC2 ---
NEUROLOGY CONSULT Date of Service DOS: DATE: 11/17/21 TIME: 12:01 Reason for Consult Reason for Consult: Dizziness Referring Physician Referring Physician: Dr. Barnes Source Source: Chart review, Patient History of Present Illness History of Present Illness The patient is an 80-year-old right-handed male who came to the emergency de partment yesterday with dizziness. He has a long history of intermittent vertigo. He says that he felt dizzy and lightheaded yesterday, somewhat different from his usual vertigo. He does have chronic tinnitus. There is no history of hearing loss. There is no dysarthria, dysphagia, diplopia, numbness, weakness, cognitive change, or headache. He is feeling somewhat better this morning. There is no history of clear-cut stroke, he says that he has had mini strokes but does not have much details. Past Medical History Cardiovascular: CAD, HTN, [place], Hyperlipidemia Pulmonary: Other (Tuberculosis) CENTRAL NERVOUS SYSTEM: TIA (?), Other (vertigo) GI: GERD, Other (Diarrhea) Musculoskeletal: low back pain (Bilateral sciatica), Osteoarthritis Renal/: Benign prostatic enlarg. Past Surgical History Past Surgical History: CABG, Other (Coronary stents) Family History Family History: Other (Asthma) Social History Social History , rare alcohol, no tobacco, crack cocaine remotely. He lives alone Current Medications Current Medications Current Medications Meclizine HCl (Antivert) 12.5 mg 1X ONCE PO Last administered on 11/16/21at 16:01; Start 11/16/21 at 14:15; Stop 11/16/21 at 14:26; Status DC Ondansetron HCl (Zofran) 4 mg PRN Q8HRS PRN IVP NAUSEA/VOMITING; Start 11/16/21 at 18:00; Stop 11/17/21 at 17:59 Morphine Sulfate (Morphine Sulfate) 2 mg PRN Q2HR PRN IVP PAIN Last administered on 11/17/21at 06:27; Start 11/16/21 at 18:00; Stop 11/17/21 at 17:59 Acetaminophen (Tylenol) 650 mg PRN Q4HRS PRN PO FEVER > 100.3'F Last administered on 11/16/21at 21:05; Start 11/16/21 at 18:00; Stop 11/17/21 at 17:59 Enoxaparin Sodium (Lovenox 40mg Syringe) 40 mg DAILY SQ Last administered on 11/17/21at 09:22; Start 11/17/21 at 09:00 Atorvastatin Calcium (Lipitor) 40 mg HS PO ; Start 11/17/21 at 21:00 Ceftriaxone Sodium (Rocephin) 1 gm 1X ONCE IVP Last administered on 11/17/21at 10:56; Start 11/17/21 at 10:30; Stop 11/17/21 at 10:31; Status DC Albuterol Sulfate (Ventolin Neb Soln) 2.5 mg PRN Q4HRS PRN NEB SHORTNESS OF BREATH; Start 11/17/21 at 09:45 Amlodipine Besylate (Norvasc) 10 mg DAILY PO Last administered on 11/17/21at 10 :57; Start 11/17/21 at 10:00 Isosorbide Mononitrate (Imdur) 30 mg DAILY PO Last administered on 11/17/21at 10:59; Start 11/17/21 at 10:00 Lisinopril (Prinivil) 20 mg DAILY PO Last administered on 11/17/21at 11:00; Start 11/17/21 at 10:00 Ondansetron HCl (Zofran) 4 mg PRN Q6HRS PRN IVP NAUSEA/VOMITING; Start 11/17/21 at 09:45 Al Hydroxide/Mg Hydroxide (Mylanta Plus Xs) 30 ml PRN Q3HRS PRN PO HEARTBURN / GAS; Start 11/17/21 at 09:45 Calcium Carbonate/ Glycine (Tums) 500 mg PRN Q3HRS PRN PO UPSET STOMACH; Start 11/17/21 at 09:45 Zolpidem Tartrate (Ambien) 5 mg PRN QHS PRN PO INSOMNIA, MAY REPEAT IN 1HR; Start 11/17/21 at 09:45 Morphine Sulfate (Morphine Sulfate) 2 mg PRN Q1HR PRN IV PAIN-SEE COMMENTS; Start 11/17/21 at 09:45 Acetaminophen/ Hydrocodone Bitart (Lortab 5/325) 1 tab PRN Q4HRS PRN PO MILD PAIN 1-3; Start 11/17/21 at 09:45 Acetaminophen (Tylenol) 650 mg PRN Q6HRS PRN PO Headaches, Temp > 101.5F; Start 11/17/21 at 09:45 Ibuprofen (Motrin) 400 mg PRN Q6HRS PRN PO MILD PAIN 1-3; Start 11/17/21 at 09:45 Active Scripts Active Nitrostat (Nitroglycerin) 0.4 Mg Tab.subl 0.4 Mg SL PRN Q5MIN PRN 30 Days Isosorbide Mononitrate Er (Isosorbide Mononitrate) 30 Mg Tab.er.24h 30 Mg PO DAILY 30 Days Proair Hfa Inhaler (Albuterol Sulfate) 8.5 Gm Hfa.aer.ad 2 Puff IH PRN Q4-6HRS PRN 21 Days Lisinopril 40 Mg Tablet 20 Mg PO DAILY 30 Days Reported Atorvastatin Calcium 40 Mg Tablet 40 Mg PO HS Amlodipine Besylate 10 Mg Tablet 10 Mg PO DAILY Allergies Allergies: Coded Allergies: No Known Drug Allergies (Unverified , 09/30/14) ROS Review of System Negative for fever, chills, weight loss, shortness of breath, chest pain, indigestion, hematochezia, melena, and dysuria. Full 14-point review of systems is negative. Physical Exam Physical Examination General: Well-developed, well-nourished black male in no acute distress HEENT: Normocephalic andatraumatic. Tympanic membranes clear.Temporal arteriespulsatile and nontender. Neck: Supple without bruit, no meningismus Musculoskeletal: Stability:see neurologic. Gait exam:see neurologic. Tone:see neurologic.Strength:see neurologic. Neurological: Mental Status:intact, orientation, memory, attention span/concentration, language, fund of knowledge normal. Cranial Nerves:Pupils equal and reactive to light, extraocular movements areintact, visual murphy are full to confrontation. Facial sensation is normal. There is no facial asymmetry. Vestibulo-ocular reflex is intact. Palate elevates and tongue protrudes in midline. All other cranial related problems are negative except as mentioned before.Reflexes:2+ and symmetric with flexor plantar responses. Motor:5/5 strength with normal tone and bulk. Coordination:Finger-nose finger and [id number] testing are normal. Rapid alternating movements and fine finger movements are intact. Gait:Ataxic. Sensory:Normal pinprick, vibration, light touch, proprioception. Vitals VITALS Vital Signs Date Time Temp Pulse Resp B/P (MAP) Pulse Ox O2 Delivery O2 Flow Rate FiO2 11/17/21 11:40 94 Room Air 11/17/21 11:00 80 165/71 11/17/21 07:00 97.8 18 97.8 Labs Labs Laboratory Tests Test 11/16/21 14:35 11/16/21 17:45 11/16/21 19:45 11/17/21 03:00 White Blood Count 4.9 x10^3/uL (4.0-11.0) 4.8 x10^3/uL (4.0-11.0) Red Blood Count 5.69 x10^6/uL (4.30-5.70) 5.49 x10^6/uL (4.30-5.70) Hemoglobin 16.2 g/dL (13.0-17.5) 15.5 g/dL (13.0-17.5) Hematocrit 48.7 % (39.0-53.0) 47.1 % (39.0-53.0) Mean Corpuscular Volume 86 fL (79-100) 86 fL (79-100) Mean Corpuscular Hemoglobin 28 pg (25-35) 28 pg (25-35) Mean Corpuscular Hemoglobin Concent 33 g/dL (31-37) 33 g/dL (31-37) Red Cell Distribution Width 13.8 % (11.5-14.5) 13.9 % (11.5-14.5) Platelet Count 175 x10^3/uL (140-400) 167 x10^3/uL (140-400) Neutrophils (%) (Auto) 63 % (31-73) 46 % (31-73) Lymphocytes (%) (Auto) 26 % (24-48) 41 % (24-48) Monocytes (%) (Auto) 9 % (0-9) 11 % (0-9) Eosinophils (%) (Auto) 1 % (0-3) 2 % (0-3) Basophils (%) (Auto) 1 % (0-3) 1 % (0-3) Neutrophils # (Auto) 3.1 x10^3/uL (1.8-7.7) 2.2 x10^3/uL (1.8-7.7) Lymphocytes # (Auto) 1.3 x10^3/uL (1.0-4.8) 1.9 x10^3/uL (1.0-4.8) Monocytes # (Auto) 0.4 x10^3/uL (0.0-1.1) 0.5 x10^3/uL (0.0-1.1) Eosinophils # (Auto) 0.1 x10^3/uL (0.0-0.7) 0.1 x10^3/uL (0.0-0.7) Basophils # (Auto) 0.0 x10^3/uL (0.0-0.2) 0.0 x10^3/uL (0.0-0.2) Prothrombin Time 13.1 SEC (11.7-14.0) Prothromb Time International Ratio 1.0 (0.8-1.1) Activated Partial Thromboplast Time 27 SEC (24-38) Sodium Level 140 mmol/L (136-145) 142 mmol/L (136-145) Potassium Level 4.4 mmol/L (3.5-5.1) 3.9 mmol/L (3.5-5.1) Chloride Level 104 mmol/L (98-107) 107 mmol/L (98-107) Carbon Dioxide Level 26 mmol/L (21-32) 24 mmol/L (21-32) Anion Gap 10 (6-14) 11 (6-14) Blood Urea Nitrogen 21 mg/dL (8-26) 23 mg/dL (8-26) Creatinine 1.3 mg/dL (0.7-1.3) 1.3 mg/dL (0.7-1.3) Estimated GFR (Cockcroft-Gault) 64.3 64.3 BUN/Creatinine Ratio 16 (6-20) Glucose Level 104 mg/dL (70-99) 108 mg/dL (70-99) Calcium Level 8.7 mg/dL (8.5-10.1) 8.6 mg/dL (8.5-10.1) Magnesium Level 2.3 mg/dL (1.8-2.4) Total Bilirubin 0.3 mg/dL (0.2-1.0) Aspartate Amino Transf (AST/SGOT) 21 U/L (15-37) Alanine Aminotransferase (ALT/SGPT) 31 U/L (16-63) Alkaline Phosphatase 218 U/L (46-116) Troponin I High Sensitivity 15 ng/L (4-75) 30 ng/L (4-75) Total Protein 7.0 g/dL (6.4-8.2) Albumin 3.5 g/dL (3.4-5.0) Albumin/Globulin Ratio 1.0 (1.0-1.7) Urine Collection Type Unknown Urine Color Yellow Urine Clarity Clear Urine pH 7.0 (<5.0-8.0) Urine Specific [place] 1.025 (1.000-1.030) Urine Protein Negative mg/dL (NEG-TRACE) Urine Glucose (UA) Negative mg/dL (NEG) Urine Ketones (Stick) Negative mg/dL (NEG) Urine Blood Negative (NEG) Urine Nitrite Positive (NEG) Urine Bilirubin Negative (NEG) Urine Urobilinogen Dipstick 0.2 mg/dL (0.2 mg/dL) Urine Leukocyte Esterase Trace (NEG) Urine RBC 0 /HPF (0-2) Urine WBC 11-20 /HPF (0-4) Urine Squamous Epithelial Cells Mod /LPF Urine Amorphous Sediment Present /HPF Urine Bacteria Many /HPF (0-FEW) Urine Mucus Mod /LPF Triglycerides Level 71 mg/dL (0-150) Cholesterol Level 136 mg/dL (0-200) LDL Cholesterol, Calculated 79 mg/dL (0-100) VLDL Cholesterol, Calculated 14 mg/dL (0-40) Non-HDL Cholesterol Calculated 93 mg/dL (0-129) HDL Cholesterol 43 mg/dL (40-60) Cholesterol/HDL Ratio 3.2 Test 11/17/21 06:20 SARS-CoV-2 Antigen (Rapid) Negative (NEGATIVE) Laboratory Tests Test 11/16/21 14:35 11/16/21 17:45 11/16/21 19:45 11/17/21 03:00 White Blood Count 4.9 x10^3/uL (4.0-11.0) 4.8 x10^3/uL (4.0-11.0) Red Blood Count 5.69 x10^6/uL (4.30-5.70) 5.49 x10^6/uL (4.30-5.70) Hemoglobin 16.2 g/dL (13.0-17.5) 15.5 g/dL (13.0-17.5) Hematocrit 48.7 % (39.0-53.0) 47.1 % (39.0-53.0) Mean Corpuscular Volume 86 fL (79-100) 86 fL (79-100) Mean Corpuscular Hemoglobin 28 pg (25-35) 28 pg (25-35) Mean Corpuscular Hemoglobin Concent 33 g/dL (31-37) 33 g/dL (31-37) Red Cell Distribution Width 13.8 % (11.5-14.5) 13.9 % (11.5-14.5) Platelet Count 175 x10^3/uL (140-400) 167 x10^3/uL (140-400) Neutrophils (%) (Auto) 63 % (31-73) 46 % (31-73) Lymphocytes (%) (Auto) 26 % (24-48) 41 % (24-48) Monocytes (%) (Auto) 9 % (0-9) 11 % (0-9) Eosinophils (%) (Auto) 1 % (0-3) 2 % (0-3) Basophils (%) (Auto) 1 % (0-3) 1 % (0-3) Neutrophils # (Auto) 3.1 x10^3/uL (1.8-7.7) 2.2 x10^3/uL (1.8-7.7) Lymphocytes # (Auto) 1.3 x10^3/uL (1.0-4.8) 1.9 x10^3/uL (1.0-4.8) Monocytes # (Auto) 0.4 x10^3/uL (0.0-1.1) 0.5 x10^3/uL (0.0-1.1) Eosinophils # (Auto) 0.1 x10^3/uL (0.0-0.7) 0.1 x10^3/uL (0.0-0.7) Basophils # (Auto) 0.0 x10^3/uL (0.0-0.2) 0.0 x10^3/uL (0.0-0.2) Prothrombin Time 13.1 SEC (11.7-14.0) Prothromb Time International Ratio 1.0 (0.8-1.1) Activated Partial Thromboplast Time 27 SEC (24-38) Sodium Level 140 mmol/L (136-145) 142 mmol/L (136-145) Potassium Level 4.4 mmol/L (3.5-5.1) 3.9 mmol/L (3.5-5.1) Chloride Level 104 mmol/L (98-107) 107 mmol/L (98-107) Carbon Dioxide Level 26 mmol/L (21-32) 24 mmol/L (21-32) Anion Gap 10 (6-14) 11 (6-14) Blood Urea Nitrogen 21 mg/dL (8-26) 23 mg/dL (8-26) Creatinine 1.3 mg/dL (0.7-1.3) 1.3 mg/dL (0.7-1.3) Estimated GFR (Cockcroft-Gault) 64.3 64.3 BUN/Creatinine Ratio 16 (6-20) Glucose Level 104 mg/dL (70-99) 108 mg/dL (70-99) Calcium Level 8.7 mg/dL (8.5-10.1) 8.6 mg/dL (8.5-10.1) Magnesium Level 2.3 mg/dL (1.8-2.4) Total Bilirubin 0.3 mg/dL (0.2-1.0) Aspartate Amino Transf (AST/SGOT) 21 U/L (15-37) Alanine Aminotransferase (ALT/SGPT) 31 U/L (16-63) Alkaline Phosphatase 218 U/L (46-116) Troponin I High Sensitivity 15 ng/L (4-75) 30 ng/L (4-75) Total Protein 7.0 g/dL (6.4-8.2) Albumin 3.5 g/dL (3.4-5.0) Albumin/Globulin Ratio 1.0 (1.0-1.7) Urine Collection Type Unknown Urine Color Yellow Urine Clarity Clear Urine pH 7.0 (<5.0-8.0) Urine Specific [place] 1.025 (1.000-1.030) Urine Protein Negative mg/dL (NEG-TRACE) Urine Glucose (UA) Negative mg/dL (NEG) Urine Ketones (Stick) Negative mg/dL (NEG) Urine Blood Negative (NEG) Urine Nitrite Positive (NEG) Urine Bilirubin Negative (NEG) Urine Urobilinogen Dipstick 0.2 mg/dL (0.2 mg/dL) Urine Leukocyte Esterase Trace (NEG) Urine RBC 0 /HPF (0-2) Urine WBC 11-20 /HPF (0-4) Urine Squamous Epithelial Cells Mod /LPF Urine Amorphous Sediment Present /HPF Urine Bacteria Many /HPF (0-FEW) Urine Mucus Mod /LPF Triglycerides Level 71 mg/dL (0-150) Cholesterol Level 136 mg/dL (0-200) LDL Cholesterol, Calculated 79 mg/dL (0-100) VLDL Cholesterol, Calculated 14 mg/dL (0-40) Non-HDL Cholesterol Calculated 93 mg/dL (0-129) HDL Cholesterol 43 mg/dL (40-60) Cholesterol/HDL Ratio 3.2 Test 11/17/21 06:20 SARS-CoV-2 Antigen (Rapid) Negative (NEGATIVE) Images Images CT Head without contrast 11/16/2021 2:43 PM Indication: Dizziness Comparison: CT head without contrast November 30, 2019 Findings: Area of right occipital and temporal encephalomalacia is similar. No evidence of subacute territorial infarct is seen. Note that CT is limited in sensitivity for acute ischemia. Age-related atrophic changes are noted. There is patchy periventricular and deep white matter hypoattenuation which is nonspecific, but most commonly relates to chronic small vessel disease. No abnormal extra axial fluid collection is identified. No mass effect or midline shift is seen. No acute osseous abnormalities are seen. Impression: 1. No acute intracranial process identified 2. Right occipital and temporal encephalomalacia, similar to comparison exam. Similar senescent atrophic changes and changes of chronic small vessel diseas Assessment/Plan Assessment/Plan Impression: Vertigo, chronic, I cannot rule in peripheral issues on bedside examination, therefore we need to rule out brainstem stroke. Otherwise, it sounds like he does have chronic peripheral vertigo with tinnitus, evoking the possibility of Mnire's disease, but more likely positional vertigo. Right occipital and temporal encephalomalacia Recommendations: MRI of the brain Therapies Further stroke orders if the MRI shows acute stroke Otherwise supportive care and discharge when stable, but he does live alone so if gait disorder persists, he will need to go to group home Thank you for letting me help with the patient's care. CLARISSA WARNER MD Nov 17, 2021 12:06
[2021-11-17] MEDS: ASPIRIN ENTERIC COATED 81 MG TABLET.DR. PO SCH (13:51)
[2021-11-17] MEDS: METOPROLOL TART IMMED RELEASE 25 MG TABLET. PO SCH ×2 (13:52→20:54)
[2021-11-17 14:08] VITALS: BP 133/60
[2021-11-17] MEDS ORDERED: hydrALAZINE 20 MG/ML VIAL. IVP PRN (18:15)
[2021-11-17 18:40] VITALS: BP 144/64
[2021-11-17 18:51] LABS: BARBITURATES NEG (NEG); BENZODIAZEPINES NEG (NEG); CANNABINOIDS NEG (NEG); COCAINE POS (NEG); METHADONE NEG (NEG); OPIATES POS (NEG); PHENCYCLIDINE NEG (NEG)
[2021-11-17 19:02] LABS: AMPHETAMINE/METHAMPHETAMINE NEG (NEG)
[2021-11-17] MEDS: ATORVASTATIN CALCIUM 40 MG TABLET. PO SCH (20:53)
[2021-11-17 22:43] VITALS: BP 132/90
[2021-11-18] VITALS (7 sets, daily range): BP systolic 129–195; BP diastolic 58–85
[2021-11-18] MEDS: HYDROcodone/APAP 5/325MG 1 TAB TABLET PO PRN ×2 (09:10→22:23)
[2021-11-18] MEDS: LISINOPRIL 20 MG TABLET PO SCH (09:11)
[2021-11-18] MEDS: ASPIRIN ENTERIC COATED 81 MG TABLET.DR. PO SCH (09:11)
[2021-11-18] MEDS: ENOXAPARIN 40 MG/0.4 ML SYRINGE. SQ SCH (09:11)
[2021-11-18] MEDS: METOPROLOL TART IMMED RELEASE 25 MG TABLET. PO SCH ×2 (09:12→20:59)
[2021-11-18] MEDS: ISOSORBIDE MONONITRATE ER 30 MG TAB.ER.24H PO SCH (09:12)
--- NOTE | 2021-11-18 10:46 | PDOC ---
[facility] PROGRESS NOTE Date of Service DOS: DATE: 11/18/21 TIME: 10:45 Chief Complaint Chief Complaint Dizziness UTI HTN CAD History MO History of Present Illness History of Present Illness 11/18/2021 Patient seen and examined He states he still little dizzy Complains of a little headache Apparently refused his MRI yesterday Discussed with case management Chart reviewed Vitals/I&O Vitals/I&O: Vital Signs Date Time Temp Pulse Resp B/P (MAP) Pulse Ox O2 Delivery O2 Flow Rate FiO2 11/18/21 09:12 65 177/77 11/18/21 08:00 Room Air 11/18/21 07:00 97.8 16 97 97.8 I & O 11/17/21 11/17/21 11/18/21 15:00 23:00 07:00 Intake Total 1080 ml 500 ml 520 ml Output Total 100 ml 100 ml 500 ml Balance 980 ml 400 ml 20 ml Physical Exam General: Alert Heart: Regular rate Lungs: Clear, Other Abdomen: Normal bowel sounds Extremities: No clubbing Skin: No rashes Labs Labs: Laboratory Tests Test 11/17/21 18:20 Urine Opiates Screen Pos (NEG) Urine Methadone Screen Neg (NEG) Urine Barbiturates Neg (NEG) Urine Phencyclidine Screen Neg (NEG) Urine Amphetamine/Methamphetamine Neg (NEG) Urine Benzodiazepines Screen Neg (NEG) Urine Cocaine Screen Pos (NEG) Urine Cannabinoids Screen Neg (NEG) Urine Ethyl Alcohol Neg (NEG) Assessment and Plan Assessmemt and Plan Problems Medical Problems: (1) Light-headed Status: Acute Dizziness UTI HTN CAD History MO Plan Were hoping to get an MRI if he will cooperate Continue antibiotics Home meds DVT prophylaxis Full code Hope to discharge when okay with neurology Comment Review of Relevant I have reviewed the following items stormy (where applicable) has been applied. Medications: Current Medications Medications (Trade) Dose Ordered Sig/[place] Route PRN Reason Start Time Stop Time Status Last Admin Dose Admin Atorvastatin Calcium (Lipitor) 40 mg HS PO 11/17/21 21:00 11/17/21 20:53 Aspirin (Ecotrin) 81 mg [id number] PO 11/17/21 13:30 11/18/21 09:11 Metoprolol Tartrate (Lopressor) 25 mg BID PO 11/17/21 13:00 11/18/21 09:12 Justifications for Admission Other Justification Dizziness, UTI CASTLE,NIAL K III DO Nov 18, 2021 10:46
[2021-11-18] MEDS ORDERED: diazePAM 5 MG TABLET PO ONE (11:00)
[2021-11-18] MEDS: AMOXICILLIN/K CLAV 875/125MG TABLET. PO SCH ×2 (11:00→20:59)
[2021-11-18] MEDS ORDERED: METO25TA4 PO (11:58)
[2021-11-18] MEDS ORDERED: MECL50TA3 PO (11:58)
[2021-11-18] MEDS ORDERED: HYDR-2761 PO (11:58)
[2021-11-18] MEDS ORDERED: AMOX1TAB11 PO (11:58)
--- NOTE | 2021-11-18 12:23 | PDOC ---
PROGRESS NOTES Date of Service DATE: 11/18/21 TIME: 12:19 Assessment Problems Medical Problems: (1) Light-headed Status: Acute Vertigo, chronic, I cannot rule in peripheral issues on bedside examination, therefore we need to rule out brainstem stroke. Otherwise, it sounds like he does have chronic peripheral vertigo with tinnitus, evoking the possibility of Mnire's disease, but more likely positional vertigo. He states that the symptoms are different from his previous vertigo. Describes symptoms of peripheral neuropathy for several weeks or months. Right occipital and temporal encephalomalacia Plan MRI of the brain, was first on hold because of Covid status pending, then he went down and had some claustrophobia, I have ordered some Valium Laboratory studies for reversible causes of neuropathy. Note that glucose has been borderline high. Therapies Further stroke orders if the MRI shows acute stroke Otherwise supportive care and discharge when stable, but he does live alone so if gait disorder persists, he will need to go to half-way Subjective Still feels dizzy, says he's had foot numbness for several weeks Objective Vital Signs Date Time Temp Pulse Resp B/P (MAP) Pulse Ox O2 Delivery O2 Flow Rate FiO2 11/18/21 11:01 97.5 57 16 143/65 (91) 96 Room Air 97.5 Intake and Output 11/18/21 07:00 Intake Total 2100 ml Output Total 700 ml Balance 1400 ml Intake Oral 2100 ml Output Urine Total 700 ml PHYSICAL EXAM Alert. Oriented to time, place and person. PERRL. EOMI. CN: no focal findings. Muscle tone: normal. Muscle strength: 5/5 DTR: 2+ Plantar reflex: Flexor Gait: not examined in bed. Normal pinprick, decreased vibratory appreciation in feet No cerebellar signs elicited. Review of Relevant I have reviewed the following items stormy (where applicable) has been applied. Labs Laboratory Tests Test 11/16/21 14:35 11/16/21 17:45 11/16/21 19:45 11/17/21 03:00 White Blood Count 4.9 x10^3/uL (4.0-11.0) 4.8 x10^3/uL (4.0-11.0) Red Blood Count 5.69 x10^6/uL (4.30-5.70) 5.49 x10^6/uL (4.30-5.70) Hemoglobin 16.2 g/dL (13.0-17.5) 15.5 g/dL (13.0-17.5) Hematocrit 48.7 % (39.0-53.0) 47.1 % (39.0-53.0) Mean Corpuscular Volume 86 fL (79-100) 86 fL (79-100) Mean Corpuscular Hemoglobin 28 pg (25-35) 28 pg (25-35) Mean Corpuscular Hemoglobin Concent 33 g/dL (31-37) 33 g/dL (31-37) Red Cell Distribution Width 13.8 % (11.5-14.5) 13.9 % (11.5-14.5) Platelet Count 175 x10^3/uL (140-400) 167 x10^3/uL (140-400) Neutrophils (%) (Auto) 63 % (31-73) 46 % (31-73) Lymphocytes (%) (Auto) 26 % (24-48) 41 % (24-48) Monocytes (%) (Auto) 9 % (0-9) 11 % (0-9) Eosinophils (%) (Auto) 1 % (0-3) 2 % (0-3) Basophils (%) (Auto) 1 % (0-3) 1 % (0-3) Neutrophils # (Auto) 3.1 x10^3/uL (1.8-7.7) 2.2 x10^3/uL (1.8-7.7) Lymphocytes # (Auto) 1.3 x10^3/uL (1.0-4.8) 1.9 x10^3/uL (1.0-4.8) Monocytes # (Auto) 0.4 x10^3/uL (0.0-1.1) 0.5 x10^3/uL (0.0-1.1) Eosinophils # (Auto) 0.1 x10^3/uL (0.0-0.7) 0.1 x10^3/uL (0.0-0.7) Basophils # (Auto) 0.0 x10^3/uL (0.0-0.2) 0.0 x10^3/uL (0.0-0.2) Prothrombin Time 13.1 SEC (11.7-14.0) Prothromb Time International Ratio 1.0 (0.8-1.1) Activated Partial Thromboplast Time 27 SEC (24-38) Sodium Level 140 mmol/L (136-145) 142 mmol/L (136-145) Potassium Level 4.4 mmol/L (3.5-5.1) 3.9 mmol/L (3.5-5.1) Chloride Level 104 mmol/L (98-107) 107 mmol/L (98-107) Carbon Dioxide Level 26 mmol/L (21-32) 24 mmol/L (21-32) Anion Gap 10 (6-14) 11 (6-14) Blood Urea Nitrogen 21 mg/dL (8-26) 23 mg/dL (8-26) Creatinine 1.3 mg/dL (0.7-1.3) 1.3 mg/dL (0.7-1.3) Estimated GFR (Cockcroft-Gault) 64.3 64.3 BUN/Creatinine Ratio 16 (6-20) Glucose Level 104 mg/dL (70-99) 108 mg/dL (70-99) Calcium Level 8.7 mg/dL (8.5-10.1) 8.6 mg/dL (8.5-10.1) Magnesium Level 2.3 mg/dL (1.8-2.4) Total Bilirubin 0.3 mg/dL (0.2-1.0) Aspartate Amino Transf (AST/SGOT) 21 U/L (15-37) Alanine Aminotransferase (ALT/SGPT) 31 U/L (16-63) Alkaline Phosphatase 218 U/L (46-116) Troponin I High Sensitivity 15 ng/L (4-75) 30 ng/L (4-75) Total Protein 7.0 g/dL (6.4-8.2) Albumin 3.5 g/dL (3.4-5.0) Albumin/Globulin Ratio 1.0 (1.0-1.7) Urine Collection Type Unknown Urine Color Yellow Urine Clarity Clear Urine pH 7.0 (<5.0-8.0) Urine Specific [place] 1.025 (1.000-1.030) Urine Protein Negative mg/dL (NEG-TRACE) Urine Glucose (UA) Negative mg/dL (NEG) Urine Ketones (Stick) Negative mg/dL (NEG) Urine Blood Negative (NEG) Urine Nitrite Positive (NEG) Urine Bilirubin Negative (NEG) Urine Urobilinogen Dipstick 0.2 mg/dL (0.2 mg/dL) Urine Leukocyte Esterase Trace (NEG) Urine RBC 0 /HPF (0-2) Urine WBC 11-20 /HPF (0-4) Urine Squamous Epithelial Cells Mod /LPF Urine Amorphous Sediment Present /HPF Urine Bacteria Many /HPF (0-FEW) Urine Mucus Mod /LPF Triglycerides Level 71 mg/dL (0-150) Cholesterol Level 136 mg/dL (0-200) LDL Cholesterol, Calculated 79 mg/dL (0-100) VLDL Cholesterol, Calculated 14 mg/dL (0-40) Non-HDL Cholesterol Calculated 93 mg/dL (0-129) HDL Cholesterol 43 mg/dL (40-60) Cholesterol/HDL Ratio 3.2 Test 11/17/21 06:20 11/17/21 18:20 Coronavirus (COVID-19)(PCR) Not detected (NOT DETECTD) SARS-CoV-2 Antigen (Rapid) Negative (NEGATIVE) Urine Opiates Screen Pos (NEG) Urine Methadone Screen Neg (NEG) Urine Barbiturates Neg (NEG) Urine Phencyclidine Screen Neg (NEG) Urine Amphetamine/Methamphetamine Neg (NEG) Urine Benzodiazepines Screen Neg (NEG) Urine Cocaine Screen Pos (NEG) Urine Cannabinoids Screen Neg (NEG) Urine Ethyl Alcohol Neg (NEG) Laboratory Tests Test 11/17/21 18:20 Urine Opiates Screen Pos (NEG) Urine Methadone Screen Neg (NEG) Urine Barbiturates Neg (NEG) Urine Phencyclidine Screen Neg (NEG) Urine Amphetamine/Methamphetamine Neg (NEG) Urine Benzodiazepines Screen Neg (NEG) Urine Cocaine Screen Pos (NEG) Urine Cannabinoids Screen Neg (NEG) Urine Ethyl Alcohol Neg (NEG) Microbiology 11/16/21 Urine Culture - Final, Complete Medications Current Medications Meclizine HCl (Antivert) 12.5 mg 1X ONCE PO Last administered on 11/16/21at 16:01; Start 11/16/21 at 14:15; Stop 11/16/21 at 14:26; Status DC Ondansetron HCl (Zofran) 4 mg PRN Q8HRS PRN IVP NAUSEA/VOMITING; Start 11/16/21 at 18:00; Stop 11/17/21 at 17:59; Status DC Morphine Sulfate (Morphine Sulfate) 2 mg PRN Q2HR PRN IVP PAIN Last administered on 11/17/21at 06:27; Start 11/16/21 at 18:00; Stop 11/17/21 at 17:59; Status DC Acetaminophen (Tylenol) 650 mg PRN Q4HRS PRN PO FEVER > 100.3'F Last administered on 11/16/21at 21:05; Start 11/16/21 at 18:00; Stop 11/17/21 at 17:59; Status DC Enoxaparin Sodium (Lovenox 40mg Syringe) 40 mg DAILY SQ Last administered on 11/18/21at 09:11; Start 11/17/21 at 09:00 Atorvastatin Calcium (Lipitor) 40 mg HS PO Last administered on 11/17/21at 20:53; Start 11/17/21 at 21:00 Ceftriaxone Sodium (Rocephin) 1 gm 1X ONCE IVP Last administered on 11/17/21at 10:56; Start 11/17/21 at 10:30; Stop 11/17/21 at 10:31; Status DC Albuterol Sulfate (Ventolin Neb Soln) 2.5 mg PRN Q4HRS PRN NEB SHORTNESS OF BREATH; Start 11/17/21 at 09:45 Amlodipine Besylate (Norvasc) 10 mg DAILY PO Last administered on 11/18/21at 09:11; Start 11/17/21 at 10:00 Isosorbide Mononitrate (Imdur) 30 mg DAILY PO Last administered on 11/18/21at 09:12; Start 11/17/21 at 10:00 Lisinopril (Prinivil) 20 mg DAILY PO Last administered on 11/18/21at 09:11; Start 11/17/21 at 10:00 Ondansetron HCl (Zofran) 4 mg PRN Q6HRS PRN IVP NAUSEA/VOMITING; Start 11/17/21 at 09:45 Al Hydroxide/Mg Hydroxide (Mylanta Plus Xs) 30 ml PRN Q3HRS PRN PO HEARTBURN / GAS; Start 11/17/21 at 09:45 Calcium Carbonate/ Glycine (Tums) 500 mg PRN Q3HRS PRN PO UPSET STOMACH; Start 11/17/21 at 09:45 Zolpidem Tartrate (Ambien) 5 mg PRN QHS PRN PO INSOMNIA, MAY REPEAT IN 1HR; Start 11/17/21 at 09:45 Morphine Sulfate (Morphine Sulfate) 2 mg PRN Q1HR PRN IV PAIN-SEE COMMENTS Last administered on 11/17/21at 19:39; Start 11/17/21 at 09:45 Acetaminophen/ Hydrocodone Bitart (Lortab 5/325) 1 tab PRN Q4HRS PRN PO MILD PAIN 1-3; Start 11/17/21 at 09:45 Acetaminophen (Tylenol) 650 mg PRN Q6HRS PRN PO Headaches, Temp > 101.5F Last administered on 11/18/21at 09:14; Start 11/17/21 at 09:45 Ibuprofen (Motrin) 400 mg PRN Q6HRS PRN PO MILD PAIN 1-3; Start 11/17/21 at 09:45 Aspirin (Ecotrin) 81 mg DAILYWBKFT PO Last administered on 11/18/21at 09:11; Start 11/17/21 at 13:30 Metoprolol Tartrate (Lopressor) 25 mg BID PO Last administered on 11/18/21at 09:12; Start 11/17/21 at 13:00 Hydralazine HCl (Apresoline Inj) 10 mg PRN Q4HRS PRN IVP ELEVATED BP, SEE COMMENTS; Start 11/17/21 at 18:15 Amoxicillin/ Clavulanate Potassium (Augmentin 875/ 125mg) 1 tab BID PO ; Start 11/18/21 at 11:00 Diazepam (Valium) 10 mg 1X ONCE PO ; Start 11/18/21 at 11:00; Stop 11/18/21 at 11:01; Status DC Active Scripts Active Antivert (Meclizine HCl) 50 Mg Tablet 50 Mg PO TID PRN PRN 7 Days Hydrocodone-Apap 5-325 (Hydrocodone Bit/Acetaminophen) 1 Tab Tablet 1 Tab PO PRN Q4HRS PRN 7 Days Metoprolol Tartrate 25 Mg Tablet 25 Mg PO BID 30 Days Amox Tr-K Clv 875-125 Mg Tab (Amoxicillin/Potassium Clav) 1 Each Tablet 875 Tab PO BID 7 Days Nitrostat (Nitroglycerin) 0.4 Mg Tab.subl 0.4 Mg SL PRN Q5MIN PRN 30 Days Isosorbide Mononitrate Er (Isosorbide Mononitrate) 30 Mg Tab.er.24h 30 Mg PO DAILY 30 Days Proair Hfa Inhaler (Albuterol Sulfate) 8.5 Gm Hfa.aer.ad 2 Puff IH PRN Q4-6HRS PRN 21 Days Lisinopril 40 Mg Tablet 20 Mg PO DAILY 30 Days Proair Hfa (Albuterol Sulfate) 8.5 Gm Hfa.aer.ad 2.5 Mg NEB PRN Q4HRS PRN 30 Days Reported Atorvastatin Calcium 40 Mg Tablet 40 Mg PO HS Amlodipine Besylate 10 Mg Tablet 10 Mg PO DAILY Vitals/I & O Vital Sign - Last 24 Hours 11/17/21 11/17/21 11/17/21 11/17/21 13:52 14:08 18:40 19:35 Temp 97.8 97.8 97.8 97.8 Pulse 68 68 54 Resp 16 16 B/P (MAP) 133/60 133/60 (84) 144/64 (90) Pulse Ox 96 96 O2 Delivery Room Air Room Air Room Air 11/17/21 11/17/21 11/17/21 11/17/21 19:39 20:09 20:54 22:43 Pulse 61 65 Resp 18 18 16 B/P (MAP) 144/64 132/90 (104) Pulse Ox 96 96 98 O2 Delivery Room Air Room Air Room Air 11/18/21 11/18/21 11/18/21 11/18/21 02:51 07:00 08:00 09:11 Temp 98.1 97.8 98.1 97.8 Pulse 53 65 65 Resp 16 16 B/P (MAP) 129/58 (81) 177/77 (110) 177/77 Pulse Ox 96 97 O2 Delivery Room Air Room Air Room Air 11/18/21 11/18/21 11/18/21 11/18/21 09:11 09:12 09:12 11:01 Temp 97.5 97.5 Pulse 65 65 65 57 Resp 16 B/P (MAP) 177/77 177/77 177/77 143/65 (91) Pulse Ox 96 O2 Delivery Room Air Intake and Output 11/17/21 11/17/21 11/18/21 15:00 23:00 07:00 Intake Total 1080 ml 500 ml 520 ml Output Total 100 ml 100 ml 500 ml Balance 980 ml 400 ml 20 ml Justicifation of Admission Dx: Justifications for Admission: Justification of Admission Dx: Yes CLARISSA WARNER MD Nov 18, 2021 12:23
--- NOTE | 2021-11-18 13:00 | DS ---
DATE OF DISCHARGE: 11/18/2021 ADMISSION DIAGNOSES: Vertigo, urinary tract infection, and headache. DISCHARGE DIAGNOSES: Resolving urinary tract infection, resolving headache, chronic vertigo, asthma, hypertension, hyperlipidemia, coronary artery disease. CONSULTS: Cardiology and Neurology. PROCEDURES: None. HOSPITAL COURSE: The patient is a pleasant middle-aged male who presented with vertigo. He has chronic vertigo, but states it was worse. We consulted Dr. Haro and Cardiology. The plan was to get an MRI yesterday, but he refused it. I saw and examined him today. He is doing better and still refusing to get an MRI. We plan to discharge. DISPOSITION: Home. ACTIVITY: As tolerated. DIET: Low sodium. DISCHARGE MEDICATIONS: Please see the MRAD. Augmentin 875 b.i.d., hydrocodone 5 q. 6 p.r.n., meclizine 50 t.i.d. p.r.n., metoprolol 25 b.i.d., albuterol, amlodipine 10 a day, atorvastatin 40 a day, Imdur 30 a day, lisinopril 20 a day, and nitro 0.4 q. 15 minutes p.r.n. TOTAL TIME: 32 minutes. HARSH/JOEL/[facility] [place]: HARSH/randa TID: [id number]
--- NOTE | 2021-11-18 15:04 | RAD ---
MRI BRAIN WITHOUT CONTRAST History: Vertigo, persistent ataxia. Comparison: CT head without contrast, 2 days ago. Technique: Multiplanar multiple pulse sequence images of the brain were obtained without contrast. Findings: There is no restricted diffusion. There is generalized cerebral atrophy. There are minimal T2 and FLAIR hyperintensities in the periven tricular white matter. Finding is nonspecific but is commonly due to chronic small vessel ischemic di sease in a patient of this age. There is posterior right temporal and occipital lobe encephalomalacia and surrounding gliosis. There is no midline shift or mass effect. No extra-axial fluid collection or evidence of intraparench ymal hemorrhage. Visualized vascular flow voids are intact. Globes and orbits are normal. There is mucus retention cy st inferiorly in the left maxillary sinus. There is minimal mucosal thickening of the right maxillary sinus. There is no air-fluid level. The mastoid air cells are clear. No cerebellar tonsillar ectopia . IMPRESSION: 1. No acute infarct or hemorrhage. 2. Generalized cerebral atrophy. 3. 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 Electronically signed by: Walker Raymundo MD (11/18/2021 3:02 PM) [id number]
[2021-11-18] MEDS: ATORVASTATIN CALCIUM 40 MG TABLET. PO SCH (20:59)
[2021-11-19 02:39] VITALS: BP 161/72
[2021-11-19 07:00] VITALS: BP 157/88
[2021-11-19] MEDS: LISINOPRIL 20 MG TABLET PO SCH (08:58)
[2021-11-19] MEDS: AMOXICILLIN/K CLAV 875/125MG TABLET. PO SCH (08:58)
[2021-11-19] MEDS: ISOSORBIDE MONONITRATE ER 30 MG TAB.ER.24H PO SCH (08:58)
[2021-11-19] MEDS: METOPROLOL TART IMMED RELEASE 25 MG TABLET. PO SCH (08:58)
[2021-11-19] MEDS: ASPIRIN ENTERIC COATED 81 MG TABLET.DR. PO SCH (08:59)
[2021-11-19] MEDS: ENOXAPARIN 40 MG/0.4 ML SYRINGE. SQ SCH ×2 (08:59→09:00)
--- NOTE | 2021-11-19 09:11 | PDOC ---
PROGRESS NOTES Date of Service DATE: 11/19/21 TIME: 09:08 Assessment Problems Medical Problems: (1) Light-headed Status: Acute Vertigo, chronic, consider Mnire's disease, but more likely positional vertigo. Peripheral neuropathy Multifactorial Gait disorder MRI negative for stroke. Right occipital and temporal encephalomalacia Plan He complains that he has a long flight of stairs that is home, he does not think he is safe at home because of his walking problems, he would like to go to [place] rehab if possible Await rest of laboratory studies for reversible causes of neuropathy. Note that glucose has been borderline high. Therapies No further stroke workup needed Subjective Still complains of dizziness Objective Vital Signs Date Time Temp Pulse Resp B/P (MAP) Pulse Ox O2 Delivery O2 Flow Rate FiO2 11/19/21 08:59 61 157/88 11/19/21 07:00 98.5 20 96 Room Air 98.5 Intake and Output 11/19/21 07:00 Intake Total 590 ml Output Total 1025 ml Balance -435 ml Intake Oral 590 ml Output Urine Total 1025 ml # Voids 1 # Bowel Movements 1 PHYSICAL EXAM Alert. Oriented to time, place and person. PERRL. EOMI. CN: no focal findings. Muscle tone: normal. Muscle strength: 5/5 DTR: 2+ Plantar reflex: Flexor Gait: not examined in bed. Normal pinprick, decreased vibratory appreciation in feet No cerebellar signs elicited. Review of Relevant I have reviewed the following items stormy (where applicable) has been applied. Labs Laboratory Tests Test 11/17/21 18:20 11/19/21 06:35 Urine Opiates Screen Pos (NEG) Urine Methadone Screen Neg (NEG) Urine Barbiturates Neg (NEG) Urine Phencyclidine Screen Neg (NEG) Urine Amphetamine/Methamphetamine Neg (NEG) Urine Benzodiazepines Screen Neg (NEG) Urine Cocaine Screen Pos (NEG) Urine Cannabinoids Screen Neg (NEG) Urine Ethyl Alcohol Neg (NEG) Erythrocyte Sedimentation Rate 2 (0-15) Thyroid Stimulating Hormone (TSH) 2.440 uIU/mL (0.358-3.74) Laboratory Tests Test 11/19/21 06:35 Erythrocyte Sedimentation Rate 2 (0-15) Thyroid Stimulating Hormone (TSH) 2.440 uIU/mL (0.358-3.74) Microbiology 11/16/21 Urine Culture - Final, Complete Medications Current Medications Meclizine HCl (Antivert) 12.5 mg 1X ONCE PO Last administered on 11/16/21at 16:01; Start 11/16/21 at 14:15; Stop 11/16/21 at 14:26; Status DC Ondansetron HCl (Zofran) 4 mg PRN Q8HRS PRN IVP NAUSEA/VOMITING; Start 11/16/21 at 18:00; Stop 11/17/21 at 17:59; Status DC Morphine Sulfate (Morphine Sulfate) 2 mg PRN Q2HR PRN IVP PAIN Last administered on 11/17/21at 06:27; Start 11/16/21 at 18:00; Stop 11/17/21 at 17:59; Status DC Acetaminophen (Tylenol) 650 mg PRN Q4HRS PRN PO FEVER > 100.3'F Last administered on 11/16/21at 21:05; Start 11/16/21 at 18:00; Stop 11/17/21 at 17:59; Status DC Enoxaparin Sodium (Lovenox 40mg Syringe) 40 mg DAILY SQ Last administered on 11/18/21at 09:11; Start 11/17/21 at 09:00 Atorvastatin Calcium (Lipitor) 40 mg HS PO Last administered on 11/18/21at 20:59; Start 11/17/21 at 21:00 Ceftriaxone Sodium (Rocephin) 1 gm 1X ONCE IVP Last administered on 11/17/21at 10:56; Start 11/17/21 at 10:30; Stop 11/17/21 at 10:31; Status DC Albuterol Sulfate (Ventolin Neb Soln) 2.5 mg PRN Q4HRS PRN NEB SHORTNESS OF BREATH; Start 11/17/21 at 09:45 Amlodipine Besylate (Norvasc) 10 mg DAILY PO Last administered on 11/19/21at 08:59; Start 11/17/21 at 10:00 Isosorbide Mononitrate (Imdur) 30 mg DAILY PO Last administered on 11/19/21at 08:58; Start 11/17/21 at 10:00 Lisinopril (Prinivil) 20 mg DAILY PO Last administered on 11/19/21at 08:58; Start 11/17/21 at 10:00 Ondansetron HCl (Zofran) 4 mg PRN Q6HRS PRN IVP NAUSEA/VOMITING; Start 11/17/21 at 09:45 Al Hydroxide/Mg Hydroxide (Mylanta Plus Xs) 30 ml PRN Q3HRS PRN PO HEARTBURN / GAS; Start 11/17/21 at 09:45 Calcium Carbonate/ Glycine (Tums) 500 mg PRN Q3HRS PRN PO UPSET STOMACH; Start 11/17/21 at 09:45 Zolpidem Tartrate (Ambien) 5 mg PRN QHS PRN PO INSOMNIA, MAY REPEAT IN 1HR; Start 11/17/21 at 09:45 Morphine Sulfate (Morphine Sulfate) 2 mg PRN Q1HR PRN IV PAIN-SEE COMMENTS Last administered on 11/17/21at 19:39; Start 11/17/21 at 09:45 Acetaminophen/ Hydrocodone Bitart (Lortab 5/325) 1 tab PRN Q4HRS PRN PO MILD PAIN 1-3 Last administered on 11/18/21at 22:23; Start 11/17/21 at 09:45 Acetaminophen (Tylenol) 650 mg PRN Q6HRS PRN PO Headaches, Temp > 101.5F Last administered on 11/18/21at 09:14; Start 11/17/21 at 09:45 Ibuprofen (Motrin) 400 mg PRN Q6HRS PRN PO INFLAMMATION; Start 11/17/21 at 09:45 Aspirin (Ecotrin) 81 mg DAILYWBKFT PO Last administered on 11/19/21at 08:59; Start 11/17/21 at 13:30 Metoprolol Tartrate (Lopressor) 25 mg BID PO Last administered on 11/19/21at 08:58; Start 11/17/21 at 13:00 Hydralazine HCl (Apresoline Inj) 10 mg PRN Q4HRS PRN IVP ELEVATED BP, SEE COMMENTS Last administered on 11/18/21at 19:41; Start 11/17/21 at 18:15 Amoxicillin/ Clavulanate Potassium (Augmentin 875/ 125mg) 1 tab BID PO Last administered on 11/19/21at 08:58; Start 11/18/21 at 11:00 Diazepam (Valium) 10 mg 1X ONCE PO Last administered on 11/18/21at 13:28; Sta rt 11/18/21 at 11:00; Stop 11/18/21 at 11:01; Status DC Active Scripts Active Antivert (Meclizine HCl) 50 Mg Tablet 50 Mg PO TID PRN PRN 7 Days Hydrocodone-Apap 5-325 (Hydrocodone Bit/Acetaminophen) 1 Tab Tablet 1 Tab PO PRN Q4HRS PRN 7 Days Metoprolol Tartrate 25 Mg Tablet 25 Mg PO BID 30 Days Amox Tr-K Clv 875-125 Mg Tab (Amoxicillin/Potassium Clav) 1 Each Tablet 875 Tab PO BID 7 Days Nitrostat (Nitroglycerin) 0.4 Mg Tab.subl 0.4 Mg SL PRN Q5MIN PRN 30 Days Isosorbide Mononitrate Er (Isosorbide Mononitrate) 30 Mg Tab.er.24h 30 Mg PO DAILY 30 Days Proair Hfa Inhaler (Albuterol Sulfate) 8.5 Gm Hfa.aer.ad 2 Puff IH PRN Q4-6HRS PRN 21 Days Lisinopril 40 Mg Tablet 20 Mg PO DAILY 30 Days Proair Hfa (Albuterol Sulfate) 8.5 Gm Hfa.aer.ad 2.5 Mg NEB PRN Q4HRS PRN 30 Days Reported Atorvastatin Calcium 40 Mg Tablet 40 Mg PO HS Amlodipine Besylate 10 Mg Tablet 10 Mg PO DAILY Vitals/I & O Vital Sign - Last 24 Hours 11/18/21 11/18/21 11/18/21 11/18/21 09:11 09:11 09:12 09:12 Pulse 65 65 65 65 B/P (MAP) 177/77 177/77 177/77 177/77 11/18/21 11/18/21 11/18/21 11/18/21 11:01 15:00 19:35 19:40 Temp 97.5 97.5 98.5 97.5 97.5 98.5 Pulse 57 57 66 Resp 16 18 18 B/P (MAP) 143/65 (91) 148/67 (94) 195/85 (121) Pulse Ox 96 95 96 O2 Delivery Room Air Room Air Room Air Room Air 11/18/21 11/18/21 11/18/21 11/18/21 19:41 20:59 21:03 22:23 Pulse 64 64 66 Resp 18 B/P (MAP) 196/86 196/86 182/77 (112) Pulse Ox 98 O2 Delivery Room Air 11/18/21 11/18/21 11/19/21 11/19/21 22:25 22:53 02:39 07:00 Temp 97.5 98.0 98.5 97.5 98.0 98.5 Pulse 64 62 61 Resp 18 18 18 20 B/P (MAP) 183/81 (115) 161/72 (101) 157/88 (111) Pulse Ox 96 96 96 96 O2 Delivery Room Air Room Air Room Air Room Air 11/19/21 11/19/21 11/19/21 11/19/21 08:58 08:58 08:58 08:59 Pulse 61 61 61 61 B/P (MAP) 157/88 157/88 157/88 157/88 Intake and Output 11/18/21 11/18/21 11/19/21 15:00 23:00 07:00 Intake Total 350 ml 240 ml Output Total 800 ml 225 ml Balance 350 ml -800 ml 15 ml Images MRI BRAIN WITHOUT CONTRAST, 11/18/2021 3:02 PM History: Vertigo, persistent ataxia. Comparison: CT head without contrast, 2 days ago. Technique: Multiplanar multiple pulse sequence images of the brain were obtained without contrast. Findings: There is no restricted diffusion. There is generalized cerebral atrophy. There are minimal T2 and FLAIR hyp erintensities in the periventricular white matter. Finding is nonspecific but is commonly due to chronic small vessel ischemic disease in a patient of this age. There is posterior right temporal and occipital lobe encephalomalacia and surrounding gliosis. There is no midline shift or mass effect. No extra-axial fluid collection or evidence of intraparenchymal hemorrhage. Visualized vascular flow voids are intact. Globes and orbits are normal. There is mucus retention cyst inferiorly in the left maxillary sinus. There is minimal mucosal thickening of the right maxillary sinus. There is no air-fluid level. The mastoid air cells are clear. No cerebellar tonsillar ectopia. IMPRESSION: 1. No acute infarct or hemorrhage. 2. Generalized cerebral atrophy. 3. 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 Justicifation of Admission Dx: Justifications for Admission: Justification of Admission Dx: Yes CLARISSA WARNER MD Nov 19, 2021 09:11
[2021-11-19 10:42] VITALS: BP 173/74
--- NOTE | 2021-11-19 12:36 | PDOC ---
CARDIO Progress Notes Date and Time Date of Service 11/19/2021 Time of Evaluation 1210 Subjective Subjective: No Chest Pain, No shortness of breath, No Palpitations Vitals Vitals Vital Signs Date Time Temp Pulse Resp B/P (MAP) Pulse Ox O2 Delivery O2 Flow Rate FiO2 11/19/21 10:42 98.9 59 18 173/74 (107) 97 Room Air 98.9 Weight Weight [ ] Input and Output Intake and Output Intake and Output 11/19/21 07:00 Intake Total 590 ml Output Total 1025 ml Balance -435 ml Intake Oral 590 ml Output Urine Total 1025 ml # Voids 1 # Bowel Movements 1 Laboratory Labs Laboratory Tests Test 11/19/21 06:35 Erythrocyte Sedimentation Rate 2 (0-15) Thyroid Stimulating Hormone (TSH) 2.440 uIU/mL (0.358-3.74) Microbiology Micro Microbiology 11/16/21 Urine Culture - Final, Complete Physical Exam HEENT: Neck Supple W Full Motion Chest: Symmetric LUNGS: Clear to Auscultation Heart: S1S2, RRR (SR) Abdomen: Soft N/T Extremities: No Edema, No Calf Tenderness Neurology: alert, oriented, follow commands Assessment Assessment 1. Dizziness, h/o vertigo; CT head with right occipital and temporal encephalomalacia. No evidence of acute stroke. Neuro following- Confusion possibly from UTI 2. UTI; as per IM 3. CAD s/p CABG 2004. C 05/14/2020 revealed 3VD with 2/3 grafts patent, no intervenable lesion EF and WM nml 4. Accelerated hypertension; better 5. Hyperlipidemia; statin 6. H/o substance abuse; Cocaine/marijuana use. presently denies 7. Tobaccoism Recommendations Continue secondary prevention measures ASA, statin, BB Consider out patient ischemic evaluation. Follow up in office Follow neurology recs Supportive care Justicifation of Admission Dx: Justifications for Admission: Justification of Admission Dx: Yes TREVOR CHAVARRIA APRN Nov 19, 2021 12:36
--- NOTE | 2021-11-19 13:12 | PDOC ---
[employer] PROGRESS NOTE Date of Service DOS: DATE: 11/19/21 TIME: 13:07 Chief Complaint Chief Complaint Dizziness UTI HTN CAD History LA History of Present Illness History of Present Illness 11/19/2021: Patient seen and evaluated. 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 Still reports dizziness. When I inquired as to why he is not ambulating with his walker, he states that he feels he walks better without it and refusing at this time. Will discharge patient home with home health vestibular rehab. Greater than 30 minutes spent managing the discharge of this patient. 11/18/2021 Patient seen and examined He states he still little dizzy Complains of a little headache Apparently refused his MRI yesterday Discussed with case management Chart reviewed Vitals/I&O Vitals/I&O: Vital Signs Date Time Temp Pulse Resp B/P (MAP) Pulse Ox O2 Delivery O2 Flow Rate FiO2 11/19/21 10:42 98.9 59 18 173/74 (107) 97 Room Air 98.9 I & O 11/18/21 11/18/21 11/19/21 15:00 23:00 07:00 Intake Total 350 ml 240 ml Output Total 800 ml 225 ml Balance 350 ml -800 ml 15 ml Physical Exam General: Alert, Cooperative, No acute distress Heart: Regular rate Lungs: Clear, Other Abdomen: Normal bowel sounds Extremities: No clubbing Skin: No rashes Labs Labs: Laboratory Tests Test 11/19/21 06:35 Erythrocyte Sedimentation Rate 2 (0-15) Thyroid Stimulating Hormone (TSH) 2.440 uIU/mL (0.358-3.74) Assessment and Plan Assessmemt and Plan Problems Medical Problems: (1) Light-headed Status: Acute Comment Review of Relevant I have reviewed the following items stormy (where applicable) has been applied. Justifications for Admission Other Justification Dizziness, UTI MARK BRANDON MD Nov 19, 2021 13:12
--- NOTE | 2021-11-19 13:17 | PDOC3 ---
Discharge Summary Visit Information Date of Admission: Nov 17, 2021 Date of Discharge: Nov 19, 2021 Final Diagnosis Problems Medical Problems: (1) Light-headed Status: Acute Brief Hospital Course Allergies Allergies Coded Allergies Type Severity Reaction Last Updated Verified No Known Drug Allergies 09/30/14 No Vital Signs Vital Signs Date Time Temp Pulse Resp B/P (MAP) Pulse Ox O2 Delivery O2 Flow Rate FiO2 11/19/21 10:42 98.9 59 18 173/74 (107) 97 Room Air 98.9 Lab Results Laboratory Tests Test 11/17/21 18:20 11/19/21 06:35 Urine Opiates Screen Pos (NEG) Urine Methadone Screen Neg (NEG) Urine Barbiturates Neg (NEG) Urine Phencyclidine Screen Neg (NEG) Urine Amphetamine/Methamphetamine Neg (NEG) Urine Benzodiazepines Screen Neg (NEG) Urine Cocaine Screen Pos (NEG) Urine Cannabinoids Screen Neg (NEG) Urine Ethyl Alcohol Neg (NEG) Erythrocyte Sedimentation Rate 2 (0-15) Thyroid Stimulating Hormone (TSH) 2.440 uIU/mL (0.358-3.74) Laboratory Tests Test 11/19/21 06:35 Erythrocyte Sedimentation Rate 2 (0-15) Thyroid Stimulating Hormone (TSH) 2.440 uIU/mL (0.358-3.74) Brief Hospital Course Mr. Egan is a 81 old male who presented with dizziness, concerning for posterior CVA. Consult placed to neurology and cardiology. He had MRI that showed no acute infarct or hemorrhage. He worked with PT/OT and recommended home with vestibular rehab. Discharge Information Condition at Discharge: Stable Disposition/Orders: D/C to Home Scheduled Amlodipine Besylate (Amlodipine Besylate) 10 Mg Tablet, 10 MG PO DAILY for HTN, (Reported) Entered as Reported by: ALICIA PORTER on 11/30/191826 Last Action: Continued on 11/17/21 0935 by MARK BRANDON MD Amoxicillin/Potassium Clav (Amox Tr-K Clv 875-125 Mg Tab) 1 Each Tablet, 875 TAB PO BID for . for 7 Days, #14 Prescribed by: LORIE CARBAJAL on 11/18/21 1158 Atorvastatin Calcium (Atorvastatin Calcium) 40 Mg Tablet, 40 MG PO HS for FOR CHOLESTEROL, #30 Ref 0 (Reported) Entered as Reported by: AMALIA CHAVEZ RN on 05/14/20 1539 Last Action: Continued on 11/17/21347 by SUE PICHARDO Isosorbide Mononitrate (Isosorbide Mononitrate Er) 30 Mg Tab.er.24h, 30 MG PO DAILY for angina for 30 Days, #30 Prescribed by: NIDHI RAYMOND MD on 05/19/201150 Last Action: Continued on 11/17/21934 by MARK BRANDON MD Lisinopril (Lisinopril) 40 Mg Tablet, 20 MG PO DAILY for BLOOD PRESSURE for 30 Days, #15 Prescribed by: NILTON HERNANDEZ MD on 12/04/191227 Last Action: Continued on 11/17/21934 by MARK BRANDON MD Metoprolol Tartrate (Metoprolol Tartrate) 25 Mg Tablet, 25 MG PO BID for . for 30 Days, #60 Prescribed by: LORIE CARBAJAL on 11/18/211157 Scheduled PRN Albuterol Sulfate (Proair Hfa) 8.5 Gm Hfa.aer.ad, 2.5 MG NEB PRN Q4HRS PRN for SHORTNESS OF BREATH for 30 Days, #1 Prescribed by: NILTON HERNANDEZ MD on 12/04/191227 Last Action: Continued on 11/17/21934 by MARK BRANDON MD Albuterol Sulfate (Proair Hfa Inhaler) 8.5 Gm Hfa.aer.ad, 2 PUFF IH PRN Q4-6HRS PRN for wheezing for 21 Days, #1 Ref 0 Prescribed by: GRECIA ZURITA MD on 12/19/19 1548 Last Action: Reviewed on 11/16/212047 by SUE PICHARDO Hydrocodone Bit/Acetaminophen (Hydrocodone-Apap 5-325 ) 1 Tab Tablet, 1 TAB PO PRN Q4HRS PRN for MILD PAIN 1-3 for 7 Days, #20 Prescribed by: LORIE CARBAJAL on 11/18/21 1159 Meclizine HCl (Antivert) 50 Mg Tablet, 50 MG PO TID PRN PRN for . for 7 Days, #20 Prescribed by: LORIE CARBAJAL on 11/18/21 1158 Nitroglycerin (Nitrostat) 0.4 Mg Tab.subl, 0.4 MG SL PRN Q5MIN PRN for CHEST PAIN for 30 Days, #25 Prescribed by: NIDHI RAYMOND MD on 05/19/20 1151 Last Action: Reviewed on 11/16/212047 by SUE PICHARDO Justicifation of Admission Dx: Justifications for Admission: Justification of Admission Dx: Yes MARK BRANDON MD Nov 19, 2021 13:17
--- NOTE | 2021-11-19 13:24 | SNU/HH DC ---
DISCHARGE WITH HOME HEALTH DISCHARGE INFORMATION: Discharge Date: Nov 19, 2021 Final Diagnosis: Problems Medical Problems: (1) Light-headed Status: Acute Condition on Discharge: Stable CODE STATUS: Code Status: DNR/DNI HOME HEALTH: Face to Face: I certify this patient is under my care and that I, or a nurse practitioner or physician's financial administrative assistant working with me, had a face to face encounter that meets the physician face to face encounter requirements with this patient on 11/19/2021. RN For Eval/Treatment: Yes Physical Therapy For: Evalulation/Treatment (Vestibular rehab) Occupational Therapy For: Evaluation/Treatment (Vestibular rehab) Home Health Aide For: Self-care Pt Meets Homebound Status: Unsteady balance w/ amb, POST DISCHARGE ORDERS: Activity Instructions for Disc: No restrictions Weight Bearing Status after Di: No restrictions Bathing Instructions: No Tub Bath until see Dr. STEPHENS AFTER DISCHARGE: Cardiac Wound/Incision Care: Keep wound/cast CDI CHECKS AFTER DISCHARGE: Checks after discharge: Check blood press - daily, Check your Temp as needed FOLLOW-UP: Follow up with: DR. SALAS ON 01/06/22 AT 11:00 AM Follow Up With: PRIMARY IN ONE WEEK TREATMENT/EQUIPMENT ORDERS: Adaptive Equipment Issued: None, Walker CERTIFICATION STATEMENT: Certification Statement: Certification Statement: Based on the above finding, I certify that this patient is confined to the home and needs intermittent correction care, physical therapy and/or speech therapy, or continues to need occupational therapy.~ This patient is under my care, and I have initiated the establishment of the plan of care.~ This patient will be followed by myself or a community physician who will periodically review the plan of care. Home Meds Active Scripts Meclizine HCl (Antivert) 50 Mg Tablet, 50 MG PO TID PRN PRN for . for 7 Days, #20 TAB Prov:CASTLE,NIAL K III DO 11/18/21 Hydrocodone Bit/Acetaminophen (HYDROCODONE-APAP 5-325 ) 1 Tab Tablet, 1 TAB PO PRN Q4HRS PRN for MILD PAIN 1-3 for 7 Days, #20 TAB Prov:CASTLE,NIAL K III DO 11/18/21 Metoprolol Tartrate (METOPROLOL TARTRATE) 25 Mg Tablet, 25 MG PO BID for . for 30 Days, #60 TAB Prov:CASTLE,NIAL K III DO 11/18/21 Amoxicillin/Potassium Clav (AMOX TR-K CLV 875-125 MG TAB) 1 Each Tablet, 875 TAB PO BID for . for 7 Days, #14 TAB Prov:RAVENNIAL K III DO 11/18/21 Nitroglycerin (NITROSTAT) 0.4 Mg Tab.subl, 0.4 MG SL PRN Q5MIN PRN for CHEST PAIN for 30 Days, #25 TAB Prov:NIDHI RAYMOND MD 05/19/20 Isosorbide Mononitrate (ISOSORBIDE MONONITRATE ER) 30 Mg Tab.er.24h, 30 MG PO DAILY for angina for 30 Days, #30 TAB.SR Prov:NIDHI RAYMOND MD 05/19/20 Albuterol Sulfate (PROAIR HFA INHALER) 8.5 Gm Hfa.aer.ad, 2 PUFF IH PRN Q4-6HRS PRN for wheezing for 21 Days, #1 INHALER 0 Refills Prov:GRECIA ZURITA MD 12/19/19 Lisinopril (LISINOPRIL) 40 Mg Tablet, 20 MG PO DAILY for BLOOD PRESSURE for 30 Days, #15 TAB Prov:NILTON HERNANDEZ MD 12/04/19 Albuterol Sulfate (Proair Hfa) 8.5 Gm Hfa.aer.ad, 2.5 MG NEB PRN Q4HRS PRN for SHORTNESS OF BREATH for 30 Days, #1 INHALER Prov:NILTON HERNANDEZ MD 12/04/19 Reported Medications Atorvastatin Calcium (ATORVASTATIN CALCIUM) 40 Mg Tablet, 40 MG PO HS for FOR CHOLESTEROL, #30 TAB 0 Refills 05/14/20 Amlodipine Besylate (AMLODIPINE BESYLATE) 10 Mg Tablet, 10 MG PO DAILY for HTN, TAB 11/30/19 MARK BRANDON MD Nov 19, 2021 13:24
[2021-11-20 02:11] LABS: HEMOGLOBIN A1C 5.2 % (4.8-5.6)
[2021-11-22 21:07] LABS: ALBUM 3.1 g/dL (2.9-4.4); ALPHA 1 0.2 g/dL (0.0-0.4); ALPHA 2 0.7 g/dL (0.4-1.0); ANA INTERP Negative (.); BETA 0.8 g/dL (0.7-1.3); GAMMA 1.2 g/dL (0.4-1.8); SPEP AG RATIO 1.1 (0.7-1.7)
== END 2021-11-19 14:35 | disposition home health service (06) | DRG 149 ==
LOC: ER 13:43 → 6 SOUTH 17:37
PROVIDERS: ADMIT Internal Medicine; ATTEND Internal Medicine
DX: R42 Dizziness and giddiness (principal); N39.0 Urinary tract infection, site not specified; G93.89 Other specified disorders of brain; I12.9 Hypertensive chronic kidney disease with stage 1 through stage 4 chronic kidney disease, or unspecified chronic kidney disease; E78.5 Hyperlipidemia, unspecified; F17.200 Nicotine dependence, unspecified, uncomplicated; G62.9 Polyneuropathy, unspecified; I25.119 Atherosclerotic heart disease of native coronary artery with unspecified angina pectoris; I25.2 Old myocardial infarction; J45.909 Unspecified asthma, uncomplicated; N18.9 Chronic kidney disease, unspecified; Z79.899 Other long term (current) drug therapy; Z82.49 Family history of ischemic heart disease and other diseases of the circulatory system; Z82.5 Family history of asthma and other chronic lower respiratory diseases; Z86.73 Personal history of transient ischemic attack (TIA), and cerebral infarction without residual deficits; Z95.1 Presence of aortocoronary bypass graft; Z95.5 Presence of coronary angioplasty implant and graft; M19.90 Unspecified osteoarthritis, unspecified site; K21.9 Gastro-esophageal reflux disease without esophagitis; F14.10 Cocaine abuse, uncomplicated; Z66 Do not resuscitate
CPT/HCPCS: 36415; 70450; 70551; 80048; 80053; 80061; 80307; 81001; 82607; 83036; 83735; 84165; 84443; 84484; 85025; 85610; 85651; 85730; 86038; 87086; 87426; 93005; 94760; J0360; J0696; J1650; J2270; U0003; 99285-25; G0378; J8597